=== PATIENT | female | born 1985 | race Caucasian/White ===

== ENCOUNTER 2017-10-25 23:04 | Emergency (ER) | END 2017-10-26 07:12 | disposition home or self-care (01) ==

== ENCOUNTER 2017-12-19 05:15 | Inpatient (IN) | END 2017-12-29 18:00 | disposition home or self-care (01) | DRG 641 ==

== ENCOUNTER 2018-04-06 01:01 | Inpatient (IN) | END 2018-04-06 19:05 | disposition home or self-care (01) | DRG 699 ==

== ENCOUNTER 2018-09-30 00:14 | Inpatient (IN) | payer OTHER ==
[~2018-09-30] VITALS: Ht 157.5 cm; Wt 45.6 kg
[~2018-09-30 00:14] MED LIST: BIOT5000 PO; FERR325T5 PO; MULTI PO; POTA20TA96 PO
[2018-09-30] MEDS ORDERED: KETOROLAC 15 MG INJ IV STA (01:09)
[2018-09-30] MEDS ORDERED: morphine 4 MG/ML VIAL IV STA (01:09)
[2018-09-30] MEDS ORDERED: ONDANSETRON 4 MG INJ IV STA (01:09)
--- NOTE | 2018-09-30 01:11 | ERD ---
ER Documentation Chief Complaint Chief Complaint fatigue,L flank pain,N/V x 1week; hx hypokalemia,calculi HPI This is a 33-year-old female with history of renal tubular acidosis, prior history of kidney stones, presents with generalized fatigue, left flank pain and nausea and vomiting for the last week. She has not had a fever. She has extremity symptoms currently, there are no relieving or aggravating factors. Symptoms are intermittent. ROS All systems reviewed and are negative except as per history of present illness. Medications Home Meds Active Scripts Ferrous Sulfate (Ferrous Sulfate) 325 Mg Tablet.dr, 325 MG PO BID for 30 Days Prov:AMY HERNANDEZ 12/29/17 Reported Medications Multivitamins* (Theragran*) 1 Tab Tab, 1 TAB PO DAILY, TAB 04/06/18 Biotin (Biotin) 5,000 Mcg Tab.rapdis, 5000 MCG PO 04/06/18 Potassium Chloride* (Potassium Chloride*) 20 Meq Tablet.er, 20 MEQ PO TID, TAB.SA 12/19/17 Allergies Allergies: Coded Allergies: No Known Drug Allergies (Verified Allergy, Unknown, 12/19/17) PMhx/Soc History of Surgery: No Anesthesia Reaction: No Hx Neurological Disorder: No Hx Respiratory Disorders: No Hx Cardiac Disorders: No Hx Psychiatric Problems: No Hx Miscellaneous Medical Probl: Yes (Hypokalemia ) Hx Alcohol Use: No Hx Substance Use: No Hx Tobacco Use: Yes (Quit in 2017) Smoking Status: Former smoker Physical Exam Vitals Vital Signs Date Temp Pulse Resp B/P (MAP) Pulse Ox O2 O2 Flow FiO2 Time Delivery Rate 09/30/18 80 16 95/64 (74) 100 Room Air 03:09 09/30/18 98.6 71 18 129/75 100 Room Air 00:58 (93) 09/30/18 98.6 84 18 110/73 100 00:24 (85) Physical Exam Const: Well-appearing, nontoxic Head: Atraumatic Eyes: Normal Conjunctiva ENT: Normal External Ears, Nose and Mouth. Neck: Full range of motion. No meningismus. Resp: Clear to auscultation bilaterally Cardio: Regular rate and rhythm, no murmurs Abd: Soft, non tender, non distended. Normal bowel sounds Skin: No petechiae or rashes Back: No midline or flank tenderness Ext: No cyanosis, or edema Neur: Awake and alert Psych: Normal Mood and Affect Result Diagram: 09/30/18 0148 09/30/18 0148 Results 24 hrs Laboratory Tests Test 09/30/18 01:48 09/30/18 01:55 White Blood Count 9.7 10^3/ul Red Blood Count 4.47 10^6/ul Hemoglobin 12.2 g/dl Hematocrit 38.2 % Mean Corpuscular Volume 85.5 fl Mean Corpuscular Hemoglobin 27.3 pg Mean Corpuscular Hemoglobin Concent 31.9 g/dl Red Cell Distribution Width 18.0 % Platelet Count 354 10^3/UL Mean Platelet Volume 10.9 fl Immature Granulocytes % 0.400 % Neutrophils % 74.2 % Lymphocytes % 19.8 % Monocytes % 4.4 % Eosinophils % 1.0 % Basophils % 0.2 % Nucleated Red Blood Cells % 0.0 /100WBC Immature Granulocytes # 0.040 10^3/ul Neutrophils # 7.2 10^3/ul Lymphocytes # 1.9 10^3/ul Monocytes # 0.4 10^3/ul Eosinophils # 0.1 10^3/ul Basophils # 0.0 10^3/ul Nucleated Red Blood Cells # 0.0 10^3/ul Urine Color STRAW Urine Clarity CLEAR Urine pH 7.0 Urine Specific Fenton 1.009 Urine Ketones NEGATIVE mg/dL Urine Nitrite NEGATIVE mg/dL Urine Bilirubin NEGATIVE mg/dL Urine Urobilinogen NEGATIVE mg/dL Urine Leukocyte Esterase 1+ Letty/ul Urine Microscopic RBC 2 /HPF Urine Microscopic WBC 21 /HPF Urine Squamous Epithelial Cells FEW /HPF Urine Bacteria FEW /HPF Urine Hemoglobin 1+ mg/dL Urine Glucose NEGATIVE mg/dL Urine Total Protein 1+ mg/dl Sodium Level 143 mmol/L Potassium Level 2.6 mmol/L Chloride Level 117 mmol/L Carbon Dioxide Level 13 mmol/L Anion Gap 13 Blood Urea Nitrogen 6 mg/dl Creatinine 0.97 mg/dl Est Glomerular Filtrat Rate mL/min > 60 mL/min Glucose Level 90 mg/dl Calcium Level 9.5 mg/dl Total Bilirubin 0.6 mg/dl Direct Bilirubin 0.00 mg/dl Indirect Bilirubin 0.6 mg/dl Aspartate Amino Transf (AST/SGOT) 24 IU/L Alanine Aminotransferase (ALT/SGPT) 9 IU/L Alkaline Phosphatase 163 IU/L Total Protein 9.8 g/dl Albumin 5.1 g/dl Globulin 4.70 g/dl Albumin/Globulin Ratio 1.08 Lipase 592 U/L POC Beta HCG, Qualitative NEGATIVE Current Medications Medications Dose Sig/Ubaldo Start Time Status Last (Trade) Ordered Route PRN Stop Time Admin Dose Reason Admin Morphine 4 mg ONCE STAT 09/30/18 DC 09/30/18 Sulfate IV 01:09 01:44 (morphine) 09/30/18 01:12 Ondansetron 4 mg ONCE STAT 09/30/18 DC 09/30/18 HCl (Zofran IV 01:09 01:44 Inj) 09/30/18 01:12 Ketorolac 15 mg ONCE STAT 09/30/18 DC 09/30/18 Tromethamine IV 01:09 01:44 (Toradol) 09/30/18 01:12 Potassium 80 meq ONCE ONCE 09/30/18 DC 09/30/18 Chloride PO 02:30 02:35 (Klor-Con 10) 09/30/18 02:31 Magnesium 100 ml @ ONCE ONCE 09/30/18 DC 09/30/18 Sulfate/ 100 mls/hr IVPB 02:30 02:35 Dextrose 09/30/18 03:29 Sodium 1,000 ml @ Q1H STAT 09/30/18 DC 09/30/18 Chloride 1,000 mls/hr IV 02:55 03:03 09/30/18 03:54 Ceftriaxone 50 ml @ ONCE STAT 09/30/18 DC 09/30/18 Sodium 100 mls/hr IVPB 03:54 04:04 09/30/18 04:23 Morphine 4 mg ONCE ONCE 09/30/18 DC Sulfate IV 04:01 (morphine) 09/30/18 04:02 Procedures/MDM This is a 33-year-old female presents for evaluation of generalized weakness, flank pain, in the setting of prior history of renal tubular acidosis, as well as nausea and vomiting. Her labs were remarkable for an anion gap acidosis, without evidence of DKA, I suspect the majority of her symptoms most likely related to her nausea and vomiting, in the setting of severe hypokalemia. Patient was given oral potassium, in addition to IV magnesium sulfate. Patient has no evidence of DKA. Some pyuria was noted, that she was also treated with ceftriaxone. She remained hemodynamically stable in the ED. Accepting Care Team: Current data and ongoing care discussed. Primary: Reece Consulting: None Outstanding Data: CT KUB EKG: Rate/Rhythm: Normal Sinus Rhythm QRS, ST, T-waves: No changes consistent w/ acute ischemia Impression: No evidence of ischemia or arrhythmia Departure Diagnosis: Primary Impression: Multiple complaints Additional Impressions: Hypokalemia Renal tubular acidosis Pyuria Condition: Stable JEANNIE DANIEL MD Sep 30, 2018 01:11
[2018-09-30] MEDS ORDERED: POTASSIUM CHLORIDE (SR) 10 MEQ TAB PO ONE (02:30)
[2018-09-30] MEDS ORDERED: MAGNESIUM SULFATE 1 GM/D5W 100 ML IVPB ONE (02:30)
[2018-09-30] MEDS ORDERED: SOD CHLORIDE 0.9% 1,000 ML IV STA (02:55)
[2018-09-30] MEDS ORDERED: CEFTRIAXONE 1 GM/50 ML (PMX) 50 ML IVPB STA (03:54)
[2018-09-30] MEDS ORDERED: morphine 4 MG/ML VIAL IV ONE (04:01)
[2018-09-30 08:20] VITALS: BP 84/59; PULSE 66; RESP 16
[2018-09-30 09:06] VITALS: Ht 157.5 cm; Wt 45.6 kg
[2018-09-30] MEDS: traMADol 50 MG TAB PO PRN ×3 (10:13→23:54)
[2018-09-30] MEDS: CITRIC ACID/NA CITRATE 30 ML CUP PO SCH ×2 (11:00→20:35)
[2018-09-30] MEDS: POTASSIUM CHLORIDE 30 MEQ in SOD CHLORIDE 0.45% 1,000 ML IV SCH (11:29)
[2018-09-30] MEDS: NA BICARBONATE 650 MG TAB PO SCH ×2 (12:20→20:35)
[2018-09-30] MEDS: POTASSIUM CHLORIDE (SR) 20 MEQ TAB PO SCH ×2 (12:21→20:35)
--- NOTE | 2018-09-30 16:45 | QN ---
Documentation Comment [id number] AYAD GIBBONS MD Sep 30, 2018 16:45
--- NOTE | 2018-09-30 17:38 | HP ---
DATE OF ADMISSION: 09/30/2018 HISTORY OF PRESENT ILLNESS: The patient is a 33-year-old female with history of nephrolithiasis, hyp okalemia, renal tubular acidosis, presented with pain and weakness, flank pain and body ache. WBC 9. 7, hematocrit 38.2, platelet count of 354, sodium 143, potassium 2.6, chloride 117, CO2 of 13, ALT 91 , alkaline phosphatase 163, albumin 5.1, globulin 4.70. The patient is admitted for further manageme nt. The patient has chest x-ray done, which shows no evidence for active cardiopulmonary disease. C T abdomen and pelvis done shows numerous bilateral nonobstructing renal calculi again seen and with l inear cluster of calculi in the distal right ureter without hydronephrosis and/or hydroureter. There are mild focal anterior bladder wall thickening now seen approximately 6 cm focal inflammatory proce ss may be considered as well as neoplasm. The patient denies any hematuria, dysuria and is admitted for further management. PAST MEDICAL HISTORY: As mentioned above, hypokalemia, kidney stone, renal tubular acidosis, noncomp liance. ALLERGY HISTORY: NEGATIVE. FAMILY HISTORY: Diabetes, hypertension, CAD. SOCIAL HISTORY: Smokes marijuana. MEDICATIONS AT HOME: 1. Biotin. 2. Ferrous sulfate. 3. Multiple vitamin. 4. Potassium chloride. REVIEW OF SYSTEMS: HEENT: Unremarkable. RESPIRATORY: Unremarkable. CARDIOVASCULAR: Unremarkable. ABDOMEN: No abdominal pain. EXTREMITIES: Unremarkable. CENTRAL NERVOUS SYSTEMS: Unremarkable. MUSCULOSKELETAL: Bodyaches. PHYSICAL EXAMINATION: GENERAL: The patient is awake and alert. VITAL SIGNS: With pulse 73, blood pressure 90/64. HEENT: Head is atraumatic, normocephalic. Pupils are equal, reactive. NECK: Supple. No JVD. LUNGS: Clear. CARDIOVASCULAR: S1, S2 is normal. ABDOMEN: Soft and nontender. Bowel sounds are present. No palpable mass or hepatosplenomegaly. No guarding, rebound tenderness. EXTREMITIES: No cyanosis, clubbing, edema. CENTRAL NERVOUS SYSTEM: The patient is awake, alert. No focal deficit. LABORATORY DATA: Lipase 592. Sodium 143, potassium 2.6. Urine specific gravity urine of , pH 7, leukocyte esterase 1+ and bacteria few. IMPRESSION: 1. Nephrolithiasis with calcification in the distal ureter. 2. The patient has metabolic acidosis. 3. Hypokalemia. 4. Dehydration. 5. Hyperchloremic metabolic acidosis. 6. Elevated lipase and possible pancreatitis. PLAN: To give this patient Bicitra, sodium bicarbonate, PPI. Continue home medication. Continue po tassium supplementation p.o. and IV. Continue Protonix. Orders were done. Dictated By: AYAD GIBBONS MD BS/NTS Conf#: [id number] DID#: [id number] CC: FARRAH LOZANO MD;*EndCC*
[2018-09-30 20:00] VITALS: BP 99/60; PULSE 81; RESP 17
[2018-09-30] MEDS ORDERED: traMADol 50 MG TAB PO STA (20:28)
[2018-10-01 02:00] VITALS: BP 90/58; PULSE 67; RESP 18
[2018-10-01] MEDS: PANTOPRAZOLE (EC) 40 MG TAB PO SCH (05:54)
[2018-10-01] MEDS: traMADol 50 MG TAB PO PRN ×3 (05:55→19:50)
[2018-10-01] MEDS: POTASSIUM CHLORIDE 30 MEQ in SOD CHLORIDE 0.45% 1,000 ML IV SCH (05:59)
[2018-10-01] MEDS ORDERED: POTASSIUM CHLORIDE (SR) 20 MEQ TAB PO STA (06:30)
[2018-10-01 08:04] VITALS: BP 120/67; PULSE 73; RESP 16
[2018-10-01] MEDS: CITRIC ACID/NA CITRATE 30 ML CUP PO SCH ×2 (09:39→19:55)
[2018-10-01] MEDS: POTASSIUM CHLORIDE (SR) 20 MEQ TAB PO SCH ×3 (09:40→19:54)
[2018-10-01] MEDS: NA BICARBONATE 650 MG TAB PO SCH ×3 (09:40→19:54)
[2018-10-01] MEDS: morphine 2 MG INJ IV PRN ×3 (10:11→22:24)
--- NOTE | 2018-10-01 12:52 | PN ---
Date/Time of Note Date/Time of Note DATE: 10/01/18 TIME: 12:49 Assessment/Plan VTE Prophylaxis Risk score (from [facility])>0 risk: 1 SCD applied (from [facility]): No SCD contraindicated: low risk/ambulating Pharmacological prophylaxis: NA/contraindicated Pharm contraindication: low risk/ambulating Lines/Catheters IV [facility] Type (from [facility] Saline Lock Urinary Cath still in place: No Assessment/Plan Hospital Course 33 y/o with 1. Left flank pain likely due to . Nephrolithiasis with calcification in the distal ureter. vs Pancreatitis 2. The patient has metabolic acidosis. 3. Hypokalemia. 4. Dehydration. 5. Hyperchloremic metabolic acidosis. 6. Elevated lipase and possible pancreatitis. Plan - IV fluids 1/2 ns with KCL - Abdominal Xray for renal calculus - Abd U/S to check for gall stone - start rocephin - Recheck K S/P 40 Po and iv continuing - ucx - dr Arenas consult - GI/DVT prophylaxsis Result Diagram: 10/01/18 0533 10/01/18 0933 Results 24hrs Laboratory Tests Test 09/30/18 22:05 10/01/18 05:33 10/01/18 09:33 Potassium Level 3.1 L 2.9 *L 3.2 L White Blood Count 7.1 # Red Blood Count 3.55 #L Hemoglobin 9.8 L Hematocrit 30.8 L Mean Corpuscular Volume 86.8 Mean Corpuscular Hemoglobin 27.6 L Mean Corpuscular Hemoglobin Concent 31.8 L Red Cell Distribution Width 18.3 H Platelet Count 262 # Mean Platelet Volume 10.8 H Immature Granulocytes % 0.400 Neutrophils % 70.8 Lymphocytes % 21.8 Monocytes % 4.9 Eosinophils % 1.7 Basophils % 0.4 Nucleated Red Blood Cells % 0.0 Immature Granulocytes # 0.030 Neutrophils # 5.0 Lymphocytes # 1.6 Monocytes # 0.4 Eosinophils # 0.1 Basophils # 0.0 Nucleated Red Blood Cells # 0.0 Sodium Level 142 Chloride Level 118 H Carbon Dioxide Level 14 L Anion Gap 10 Blood Urea Nitrogen 4 L Creatinine 0.92 Est Glomerular Filtrat Rate mL/min > 60 Glucose Level 85 Calcium Level 8.1 L Total Bilirubin 0.4 Direct Bilirubin 0.00 Indirect Bilirubin 0.4 Aspartate Amino Transf (AST/SGOT) 16 Alanine Aminotransferase (ALT/SGPT) 15 Alkaline Phosphatase 95 Total Protein 6.8 # Albumin 3.5 # Globulin 3.30 H Albumin/Globulin Ratio 1.06 Lipase 510 H Subjective 24 Hr Interval Summary Free Text/Dictation Pain in left flank Exam/Review of Systems Exam Vitals Vital Signs Date Temp Pulse Resp B/P (MAP) Pulse Ox O2 O2 Flow FiO2 Time Delivery Rate 10/01/18 98.4 73 16 120/67 100 08:04 (84) 09/30/18 Room Air 04:34 Intake and Output 09/30/18 09/30/18 10/01/18 1515:00 23:00 07:00 IntakeIntake Total 1075 ml 1690 ml BalanceBalance 1075 ml 1690 ml Exam HEENT: Head is atraumatic, normocephalic. Pupils are equal, reactive. NECK: Supple. No JVD. LUNGS: Clear. CARDIOVASCULAR: S1, S2 is normal. ABDOMEN:TTP Left flank EXTREMITIES: No cyanosis, clubbing, edema. CENTRAL NERVOUS SYSTEM: The patient is awake, alert. No focal deficit. Results Results 24hrs Laboratory Tests Test 09/30/18 22:05 10/01/18 05:33 10/01/18 09:33 Potassium Level 3.1 L 2.9 *L 3.2 L White Blood Count 7.1 # Red Blood Count 3.55 #L Hemoglobin 9.8 L Hematocrit 30.8 L Mean Corpuscular Volume 86.8 Mean Corpuscular Hemoglobin 27.6 L Mean Corpuscular Hemoglobin Concent 31.8 L Red Cell Distribution Width 18.3 H Platelet Count 262 # Mean Platelet Volume 10.8 H Immature Granulocytes % 0.400 Neutrophils % 70.8 Lymphocytes % 21.8 Monocytes % 4.9 Eosinophils % 1.7 Basophils % 0.4 Nucleated Red Blood Cells % 0.0 Immature Granulocytes # 0.030 Neutrophils # 5.0 Lymphocytes # 1.6 Monocytes # 0.4 Eosinophils # 0.1 Basophils # 0.0 Nucleated Red Blood Cells # 0.0 Sodium Level 142 Chloride Level 118 H Carbon Dioxide Level 14 L Anion Gap 10 Blood Urea Nitrogen 4 L Creatinine 0.92 Est Glomerular Filtrat Rate mL/min > 60 Glucose Level 85 Calcium Level 8.1 L Total Bilirubin 0.4 Direct Bilirubin 0.00 Indirect Bilirubin 0.4 Aspartate Amino Transf (AST/SGOT) 16 Alanine Aminotransferase (ALT/SGPT) 15 Alkaline Phosphatase 95 Total Protein 6.8 # Albumin 3.5 # Globulin 3.30 H Albumin/Globulin Ratio 1.06 Lipase 510 H Medications Medication Current Medications Potassium Chloride 30 meq/ Sodium Chloride 1,015 ml @ 50 mls/hr [id number] IV Last administered on 10/01/18 05:59; Admin Dose 50 MLS/HR; Start 09/30/18 at 11:00 Potassium Chloride (Klor-Con 20) 20 meq TID PO Last administered on 10/01/18 09:40; Admin Dose 20 MEQ; Start 09/30/18 at 13:00 Citric Acid/ Sodium Citrate (Bicitra) 30 ml BID PO Last administered on 10/01/18 09:39; Admin Dose 30 ML; Start 09/30/18 at 10:30 Sodium Bicarbonate (Sodium Bicarbonate Tab) 650 mg TID PO Last administered on 10/01/18 09:40; Admin Dose 650 MG; Start 09/30/18 at 13:00 Pantoprazole (Protonix Tab) 40 mg DAILY@06 PO Last administered on 10/01/18 05:54; Admin Dose 40 MG; Start 10/01/18 at 06:00 Tramadol HCl (Ultram) 50 mg Q6H PRN PO MODERATE PAIN LEVEL 4-6 Last administered on 10/01/18 05:55; Admin Dose 50 MG; Start 09/30/18 at 10:00 Morphine Sulfate (morphine) 2 mg Q4H PRN IV SEVERE PAIN LEVEL 7-10 Last administered on 10/01/18at 10:11; Admin Dose 2 MG; Start 10/01/18 at 10:00 Ceftriaxone Sodium 50 ml @ 100 mls/hr Q24H IVPB ; Start 10/01/18 at 13:00; Status LAVERNE STROUD MD Oct 01, 2018 12:52
[2018-10-01] MEDS: CEFTRIAXONE 1 GM/50 ML (PMX) 50 ML IVPB SCH (13:13)
[2018-10-01 14:31] VITALS: BP 96/55; PULSE 67; RESP 18
--- NOTE | 2018-10-01 17:37 | CONS ---
Assessment/Plan Assessment/Plan Hospital Course (Demo Recall) Summary Assessment and Plan: Assessment: Elevated lipase Left lower back pain Multiple nonobstructing renal calculi Cluster of calculi in the distal right ureter without hydronephrosis or hydrou reter. Bladder wall thickening Hypokalemia Chronic anemia Plan: Patient currently on a regular diet no complaints of abdominal pain although she does complain of left lower back pain we will continue diet for now recheck lipase and amylase in a.m. if elevated will change diet to n.p.o. We will additionally check IgG and obtain abdominal ultrasound to assess common bile duct. Further recommendations based on clinical course Patient seen in collaboration with Dr. Haider CC: KAYLIN HAIDER MD ; Consultation Date/Type/Reason Admit Date/Time Sep 30, 2018 at 02:57 Date of Consultation: Oct 01, 2018 Type of Consult GI Reason for Consultation Left flank pain Kidney stone versus pancreatitis Date/Time of Note DATE: 10/01/18 TIME: 17:26 Hx of Present Illness This a 33-year-old female with past medical history of chronic anemia, Sjogren's disease, hypokalemia, metabolic acidosis who presented to the hospital with complaints of progressive abdominal and left flank pain times 1 week. Workup was completed here including a CT abdomen pelvis without IV contrast, showing numerous bilateral nonobstructing renal calculi seen now with a linear cluster of calculi in the distal right ureter without hydronephrosis or hydroureter. As well as some mild focal anterior bladder wall thickening noted in CT is a unremarkable liver as well as unremarkable pancreas. Labs were obtained and lipase was noted to be elevated at 510, LFTs are within normal limits patient on presentation had a hypokalemia with a potassium of 2.6 and today is noted no rmocytic anemia, UA suspicious for UTI patient has been started on antibiotics she has been consulted for further workup regarding possible pancreatitis currently patient denies left upper abdominal pain or epigastric pain she does complain of left lower back pain. Patient denies alcohol, or previous episodes of pancreatitis. Patient has a metal piercing in her face that is not possible to remove without surgical intervention. Therefore we will not be able to obtain MRCP. CT abdomen pelvis without contrast notes the gallbladder to be unremarkable. We will obtain a abdominal ultrasound to assess common bile duct if possible we will additionally check IgG for autoimmune pancreatitis and re check labs in the morning. Patient is currently on a regular diet tolerating well she denies nausea/vomiting again no complaint of abdominal pain rather only left lower back pain she denies overt signs of GI bleed including melena, hematochezia or hematemesis. Review of Systems: A 12 system, review was conducted and is negative except as noted in the HPI or here. Past Medical History Home Meds Active Scripts Ferrous Sulfate (Ferrous Sulfate) 325 Mg Tablet.dr, 325 MG PO BID for 30 Days Prov:AMY HERNANDEZ 12/29/17 Reported Medications Multivitamins* (Theragran*) 1 Tab Tab, 1 TAB PO DAILY, TAB 04/06/18 Biotin (Biotin) 5,000 Mcg Tab.rapdis, 5000 MCG PO 04/06/18 Potassium Chloride* (Potassium Chloride*) 20 Meq Tablet.er, 20 MEQ PO TID, TAB.SA 12/19/17 Medications Current Medications Potassium Chloride 30 meq/ Sodium Chloride 1,015 ml @ 70 mls/hr [id number] IV Last administered on 10/01/18 05:59; Admin Dose 50 MLS/HR; Start 09/30/18 at 11:00 Potassium Chloride (Klor-Con 20) 20 meq TID PO Last administered on 10/01/18 13:12; Admin Dose 20 MEQ; Start 09/30/18 at 13:00 Citric Acid/ Sodium Citrate (Bicitra) 30 ml BID PO Last administered on 9at 09:39; Admin Dose 30 ML; Start 09/30/18 at 10:30 Sodium Bicarbonate (Sodium Bicarbonate Tab) 650 mg TID PO Last administered on 10/01/18 13:13; Admin Dose 650 MG; Start 09/30/18 at 13:00 Pantoprazole (Protonix Tab) 40 mg DAILY@06 PO Last administered on 10/01/18 05:54; Admin Dose 40 MG; Start 10/01/18 at 06:00 Tramadol HCl (Ultram) 50 mg Q6H PRN PO MODERATE PAIN LEVEL 4-6 Last administered on 10/01/18 13:13; Admin Dose 50 MG; Start 09/30/18 at 10:00 Morphine Sulfate (morphine) 2 mg Q4H PRN IV SEVERE PAIN LEVEL 7-10 Last administered on 10/01/18 10:11; Admin Dose 2 MG; Start 10/01/18 at 10:00 Ceftriaxone Sodium 50 ml @ 100 mls/hr Q24H IVPB Last administered on 10/01/18at 13:13; Admin Dose 100 MLS/HR; Start 10/01/18 at 13:00 Allergies: Coded Allergies: No Known Drug Allergies (Verified Allergy, Unknown, 12/19/17) Past Surgical History Past Surgical Hx: no surgical history Social History Smoking Status: Never smoker Exam/Review of Systems Exam Vitals Vital Signs Date Temp Pulse Resp B/P (MAP) Pulse Ox O2 O2 Flow FiO2 Time Delivery Rate 10/01/18 98.3 67 18 96/55 (69) 99 14:31 09/30/18 Room Air 04:34 Intake and Output 09/30/18 09/30/18 10/01/18 1414:59 22:59 06:59 IntakeIntake Total 1075 ml 1690 ml BalanceBalance 1075 ml 1690 ml Exam PHYSICAL EXAMINATION: GENERAL: Well developed, well nourished, alert & oriented x 3, in no acute distress SKIN: No lesions, no stigmata chronic liver disease, no evidence of bleeding diathesis HEAD: Normocephalic, atraumatic, no tenderness. EYES: Pupils equal reactive to light and accommodation, full extraocular movements, sclera clear, non-icteric, no discharge. EARS/NOSE AND THROAT: Ears normal, nose normal, oropharynx normal, oral membranes well hydrated without lesions. NECK: Supple, no masses, thyroid normal, JVP within normal limits, carotids normal without bruits. CHEST: Inspection within normal limits. CARDIOVASCULAR: Heart: Regular rate and rhythm, no murmurs, gallops or rubs. Peripheral pulses present within normal limits, no cyanosis, clubbing or edemas. No pulsatile abdominal mass RESPIRATORY: Lungs clear to auscultation and percussion, no wheezing, no rubs GASTROINTESTINAL AND LIVER: Abdomen: Soft, LL back tenderness, non-distended, no hernias, no masses, no organomegaly, no ascites, no guarding, no rebound tenderness, normoactive bowel sounds. Rectal: Deferred. [no perianal disease, no masses, stool normal, occult blood negative.] EXTREMITIES: No cyanosis, clubbing or edema. Results Result Diagram: 10/01/18 0533 10/01/18 0933 Results 24hrs Laboratory Tests Test 09/30/18 22:05 10/01/18 05:33 10/01/18 09:33 Potassium Level 3.1 L 2.9 *L 3.2 L White Blood Count 7.1 # Red Blood Count 3.55 #L Hemoglobin 9.8 L Hematocrit 30.8 L Mean Corpuscular Volume 86.8 Mean Corpuscular Hemoglobin 27.6 L Mean Corpuscular Hemoglobin Concent 31.8 L Red Cell Distribution Width 18.3 H Platelet Count 262 # Mean Platelet Volume 10.8 H Immature Granulocytes % 0.400 Neutrophils % 70.8 Lymphocytes % 21.8 Monocytes % 4.9 Eosinophils % 1.7 Basophils % 0.4 Nucleated Red Blood Cells % 0.0 Immature Granulocytes # 0.030 Neutrophils # 5.0 Lymphocytes # 1.6 Monocytes # 0.4 Eosinophils # 0.1 Basophils # 0.0 Nucleated Red Blood Cells # 0.0 Sodium Level 142 Chloride Level 118 H Carbon Dioxide Level 14 L Anion Gap 10 Blood Urea Nitrogen 4 L Creatinine 0.92 Est Glomerular Filtrat Rate mL/min > 60 Glucose Level 85 Calcium Level 8.1 L Total Bilirubin 0.4 Direct Bilirubin 0.00 Indirect Bilirubin 0.4 Aspartate Amino Transf (AST/SGOT) 16 Alanine Aminotransferase (ALT/SGPT) 15 Alkaline Phosphatase 95 Total Protein 6.8 # Albumin 3.5 # Globulin 3.30 H Albumin/Globulin Ratio 1.06 Lipase 510 H Medications Medication Current Medications Potassium Chloride 30 meq/ Sodium Chloride 1,015 ml @ 70 mls/hr [id number] IV Last administered on 10/01/18 05:59; Admin Dose 50 MLS/HR; Start 09/30/18 at 11:00 Potassium Chloride (Klor-Con 20) 20 meq TID PO Last administered on 10/01/18at 13:12; Admin Dose 20 MEQ; Start 09/30/18 at 13:00 Citric Acid/ Sodium Citrate (Bicitra) 30 ml BID PO Last administered on 10/01/18at 09:39; Admin Dose 30 ML; Start 09/30/18 at 10:30 Sodium Bicarbonate (Sodium Bicarbonate Tab) 650 mg TID PO Last administered on 10/01/18at 13:13; Admin Dose 650 MG; Start 09/30/18 at 13:00 Pantoprazole (Protonix Tab) 40 mg DAILY@06 PO Last administered on 10/01/18 05:54; Admin Dose 40 MG; Start 10/01/18 at 06:00 Tramadol HCl (Ultram) 50 mg Q6H PRN PO MODERATE PAIN LEVEL 4-6 Last administered on 10/01/18 13:13; Admin Dose 50 MG; Start 09/30/18 at 10:00 Morphine Sulfate (morphine) 2 mg Q4H PRN IV SEVERE PAIN LEVEL 7-10 Last a dministered on 10/01/18 10:11; Admin Dose 2 MG; Start 10/01/18 at 10:00 Ceftriaxone Sodium 50 ml @ 100 mls/hr Q24H IVPB Last administered on 10/01/18 13:13; Admin Dose 100 MLS/HR; Start 10/01/18 at 13:00 JACKLYN BILLINGSLEY Oct 01, 2018 17:37
--- NOTE | 2018-10-01 19:10 | CONS ---
Assessment/Plan Assessment/Plan Hospital Course (Demo Recall) 33-year-old female with known history of renal tubular acidosis, nephrolithiasis and hypokalemia, presented to the emergency room complaining of left flank pain with nausea and feeling fatigued. She underwent a CT scan of the abdomen and pelvis and that showed: 1. Numerous bilateral nonobstructing renal calculi are again seen now with a linear cluster of calculi in the distal right ureter without hydronephrosis or hydroureter. 2. Mild focal anterior bladder wall thickening is now seen measuring approximately 0.6 cm. Focal inflammatory process may be considered as well as n eoplasm. Consider follow-up bladder ultrasound or CT to assess stability. Consider cystoscopy or further urologic evaluation as warranted. The patient complains of the pain in the left flank area however the stones are in the distal right ureter. Impression: Distal right ureteral stones and bilateral renal stones. Renal tubular acidosis. Recommend: Pain medications, strain the urine, she already had a KUB that showed the stones as well. She should be able to pass the stones on her own and if she does not and she has pain then we will intervene. But her pain is on the left side he had the stones are in the distal right ureter. The stones in her kidneys are not obstructing and therefore are not causing any pain. Consultation Date/Type/Reason Admit Date/Time Sep 30, 2018 at 02:57 Date of Consultation: Oct 01, 2018 Type of Consult Urology Reason for Consultation Bilateral kidney stones and multiple distal right ureteral stones Requesting Provider: LAVERNE COBB MD Date/Time of Note DATE: 10/01/18 TIME: 19:01 Hx of Present Illness 33-year-old female with known history of renal tubular acidosis, nephrolithiasis and hypokalemia, presented to the emergency room complaining of left flank pain with nausea and feeling fatigued. She underwent a CT scan of the abdomen and pelvis and that showed: 1. Numerous bilateral nonobstructing renal calculi are again seen now with a linear cluster of calculi in the distal right ureter without hydronephrosis or hydroureter. 2. Mild focal anterior bladder wall thickening is now seen measuring approximately 0.6 cm. Focal inflammatory process may be considered as well as neoplasm. Consider follow-up bladder ultrasound or CT to assess stability. Consider cystoscopy or further urologic evaluation as warranted. The patient complains of the pain in the left flank area however the stones are in the distal right ureter. Constitutional: no complaints, other (Fatigue) Eyes: no complaints ENT: no complaints Respiratory: no complaints Cardiovascular: no complaints Gastrointestinal: nausea (On admission), vomiting (On admission) Genitourinary: flank pain (Left side); No hematuria Musculoskeletal: no complaints Skin: no complaints Neurologic: no complaints Endocrine: no complaints Lymphatic: no complaints Psychological: no complaints Immunologic: no complaints Past Medical History Medical History: renal disease (Renal tubular acidosis, kidney stones) Home Meds Active Scripts Ferrous Sulfate (Ferrous Sulfate) 325 Mg Tablet.dr, 325 MG PO BID for 30 Days Prov:AMY HERNANDEZ 12/29/17 Reported Medications Multivitamins* (Theragran*) 1 Tab Tab, 1 TAB PO DAILY, TAB 04/06/18 Biotin (Biotin) 5,000 Mcg Tab.rapdis, 5000 MCG PO 04/06/18 Potassium Chloride* (Potassium Chloride*) 20 Meq Tablet.er, 20 MEQ PO TID, TAB.SA 12/19/17 Medications Current Medications Potassium Chloride 30 meq/ Sodium Chloride 1,015 ml @ 70 mls/hr [id number] IV Last administered on 10/01/18 05:59; Admin Dose 50 MLS/HR; Start 09/30/18 at 11:00 Potassium Chloride (Klor-Con 20) 20 meq TID PO Last administered on 10/01/18 13:12; Admin Dose 20 MEQ; Start 09/30/18 at 13:00 Citric Acid/ Sodium Citrate (Bicitra) 30 ml BID PO Last administered on 10/01/18 09:39; Admin Dose 30 ML; Start 09/30/18 at 10:30 Sodium Bicarbonate (Sodium Bicarbonate Tab) 650 mg TID PO Last administered on 10/01/18 13:13; Admin Dose 650 MG; Start 09/30/18 at 13:00 Pantoprazole (Protonix Tab) 40 mg DAILY@06 PO Last administered on 10/01/18 05:54; Admin Dose 40 MG; Start 10/01/18 at 06:00 Tramadol HCl (Ultram) 50 mg Q6H PRN PO MODERATE PAIN LEVEL 4-6 Last administered on 10/01/18 13:13; Admin Dose 50 MG; Start 09/30/18 at 10:00 Morphine Sulfate (morphine) 2 mg Q4H PRN IV SEVERE PAIN LEVEL 7-10 Last administered on 10/01/18at 17:34; Admin Dose 2 MG; Start 10/01/18 at 10:00 Ceftriaxone Sodium 50 ml @ 100 mls/hr Q24H IVPB Last administered on 10/01/18at 13:13; Admin Dose 100 MLS/HR; Start 10/01/18 at 13:00 Allergies: Coded Allergies: No Known Drug Allergies (Verified Allergy, Unknown, 12/19/17) Past Surgical History Past Surgical Hx: no surgical history Social History Alcohol Use: rarely Smoking Status: Never smoker Drug Use: marijuana Exam/Review of Systems Exam Vitals Vital Signs Date Temp Pulse Resp B/P (MAP) Pulse Ox O2 O2 Flow FiO2 Time Delivery Rate 10/01/18 98.3 67 18 96/55 (69) 99 14:31 09/30/18 Room Air 04:34 Intake and Output 09/30/18 09/30/18 10/01/18 1515:00 23:00 07:00 IntakeIntake Total 1075 ml 1690 ml BalanceBalance 1075 ml 1690 ml Constitutional: alert, oriented Psych: no complaints Head: normocephalic Eyes: nl conjunctiva ENMT: nl external ears & nose Neck: supple, non-tender Respiratory: normal air movement; No wheezing Cardiovascular: regular rate and rhythm; No jugular venous distention (JVD) Gastrointestinal: soft, tender Genitourinary - Female: CVA tenderness (Left flank) Musculoskeletal: nl extremities to inspection Neurological: nl mental status Skin: nl turgor Lymph: nl lymph nodes Results Result Diagram: 10/01/18 0533 10/01/18 1654 Results 24hrs Laboratory Tests Test 09/30/18 22:05 10/01/18 05:33 10/01/18 09:33 10/01/18 16:54 Potassium Level 3.1 L 2.9 *L 3.2 L 3.3 L White Blood Count 7.1 # Red Blood Count 3.55 #L Hemoglobin 9.8 L Hematocrit 30.8 L Mean Corpuscular Volume 86.8 Mean Corpuscular 27.6 L Hemoglobin Mean Corpuscular 31.8 L Hemoglobin Concent Red Cell Distribution 18.3 H Width Platelet Count 262 # Mean Platelet Volume 10.8 H Immature Granulocytes % 0.400 Neutrophils % 70.8 Lymphocytes % 21.8 Monocytes % 4.9 Eosinophils % 1.7 Basophils % 0.4 Nucleated Red Blood 0.0 Cells % Immature Granulocytes # 0.030 Neutrophils # 5.0 Lymphocytes # 1.6 Monocytes # 0.4 Eosinophils # 0.1 Basophils # 0.0 Nucleated Red Blood 0.0 Cells # Sodium Level 142 Chloride Level 118 H Carbon Dioxide Level 14 L Anion Gap 10 Blood Urea Nitrogen 4 L Creatinine 0.92 Est Glomerular Filtrat > 60 Rate mL/min Glucose Level 85 Calcium Level 8.1 L Total Bilirubin 0.4 Direct Bilirubin 0.00 Indirect Bilirubin 0.4 Aspartate Amino 16 Transf (AST/SGOT) Alanine 15 Aminotransferase (ALT/S GPT) Alkaline Phosphatase 95 Total Protein 6.8 # Albumin 3.5 # Globulin 3.30 H Albumin/Globulin Ratio 1.06 Lipase [address] scan of the abdomen and pelvis: 1. Numerous bilateral nonobstructing renal calculi are again seen now with a linear cluster of calculi in the distal right ureter without hydronephrosis or hydroureter. 2. Mild focal anterior bladder wall thickening is now seen measuring approximately 0.6 cm. Focal inflammatory process may be considered as well as neoplasm. Consider follow-up bladder ultrasound or CT to assess stability. Consider cystoscopy or further urologic evaluation as warranted. Medications Medication Current Medications Potassium Chloride 30 meq/ Sodium Chloride 1,015 ml @ 70 mls/hr [id number] IV Last administered on 10/01/18 05:59; Admin Dose 50 MLS/HR; Start 09/30/18 at 11:00 Potassium Chloride (Klor-Con 20) 20 meq TID PO Last administered on 10/01/18 13:12; Admin Dose 20 MEQ; Start 09/30/18 at 13:00 Citric Acid/ Sodium Citrate (Bicitra) 30 ml BID PO Last administered on 10/01/18 09:39; Admin Dose 30 ML; Start 09/30/18 at 10:30 Sodium Bicarbonate (Sodium Bicarbonate Tab) 650 mg TID PO Last administered on 10/01/18 13:13; Admin Dose 650 MG; Start 09/30/18 at 13:00 Pantoprazole (Protonix Tab) 40 mg DAILY@06 PO Last administered on 10/01/18 05:54; Admin Dose 40 MG; Start 10/01/18 at 06:00 Tramadol HCl (Ultram) 50 mg Q6H PRN PO MODERATE PAIN LEVEL 4-6 Last administered on 10/01/18at 13:13; Admin Dose 50 MG; Start 09/30/18 at 10:00 Morphine Sulfate (morphine) 2 mg Q4H PRN IV SEVERE PAIN LEVEL 7-10 Last administered on 10/01/18at 17:34; Admin Dose 2 MG; Start 10/01/18 at 10:00 Ceftriaxone Sodium 50 ml @ 100 mls/hr Q24H IVPB Last administered on 10/01/18at 13:13; Admin Dose 100 MLS/HR; Start 10/01/18 at 13:00 CUBA WU MD Oct 01, 2018 19:10
[2018-10-01] MEDS ORDERED: TAMSULOSIN (SR) 0.4 MG CAP PO ONE (19:52)
[2018-10-01] MEDS: TAMSULOSIN (SR) 0.4 MG CAP PO SCH (19:54)
[2018-10-01 20:07] VITALS: BP 123/74; PULSE 68; RESP 20
[2018-10-01] MEDS: ZOLPIDEM 5 MG TAB PO PRN (23:30)
[2018-10-02] MEDS: POTASSIUM CHLORIDE 30 MEQ in SOD CHLORIDE 0.45% 1,000 ML IV SCH ×4 (00:34→23:09)
[2018-10-02] MEDS: morphine 2 MG INJ IV PRN ×2 (02:57→08:06)
[2018-10-02 03:33] VITALS: BP 104/55; PULSE 68; RESP 20
[2018-10-02] MEDS ORDERED: morphine 2 MG INJ IV STA (03:43)
[2018-10-02] MEDS: PANTOPRAZOLE (EC) 40 MG TAB PO SCH (05:37)
[2018-10-02] MEDS: traMADol 50 MG TAB PO PRN (05:38)
[2018-10-02 08:00] VITALS: BP 105/57; PULSE 72; RESP 16
[2018-10-02] MEDS ORDERED: METOCLOPRAMIDE 10 MG INJ IV PRN (08:00)
--- NOTE | 2018-10-02 08:43 | CONS ---
Consult Date/Type/Reason Admit Date/Time Sep 30, 2018 at 02:57 Initial Consult Date 10/01/18 Type of Consultation: Urology Reason for Consultation Bilateral kidney stones and distal right ureteral stones Requesting Provider: LAVERNE COBB MD Date/Time of Note DATE: 10/02/18 TIME: 08:38 Subjective Patient states that she has pain in the left flank area. No pain in the right lower quadrant or right flank Objective Vitals Vital Signs Date Temp Pulse Resp B/P (MAP) Pulse Ox O2 O2 Flow FiO2 Time Delivery Rate 10/02/18 97.7 72 16 105/57 100 08:00 (73) 09/30/18 Room Air 04:34 Intake and Output 10/01/18 10/01/18 10/02/18 1515:00 23:00 07:00 IntakeIntake Total 50 ml 2100 ml 650 ml BalanceBalance 50 ml 2100 ml 650 ml Exam Left flank tenderness, abdomen is soft Results/Medications Result Diagram: 10/02/18 0528 10/02/18 0528 Results 24 hrs Laboratory Tests Test 10/01/18 09:33 10/01/18 16:54 10/02/18 05:28 Potassium Level 3.2 L 3.3 L 3.0 L White Blood Count 5.3 # Red Blood Count 3.95 L Hemoglobin 10.8 L Hematocrit 35.2 L Mean Corpuscular Volume 89.1 Mean Corpuscular Hemoglobin 27.3 L Mean Corpuscular Hemoglobin Concent 30.7 L Red Cell Distribution Width 18.9 H Platelet Count 298 Mean Platelet Volume 11.2 H Immature Granulocytes % 0.200 Neutrophils % 56.0 Lymphocytes % 34.9 Monocytes % 6.0 Eosinophils % 2.5 Basophils % 0.4 Nucleated Red Blood Cells % 0.0 Immature Granulocytes # 0.010 Neutrophils # 3.0 Lymphocytes # 1.9 Monocytes # 0.3 Eosinophils # 0.1 Basophils # 0.0 Nucleated Red Blood Cells # 0.0 Sodium Level 144 Chloride Level 120 H Carbon Dioxide Level 14 L Anion Gap 10 Blood Urea Nitrogen 3 L Creatinine 0.80 Est Glomerular Filtrat Rate mL/min > 60 Glucose Level 94 Calcium Level 8.4 Total Bilirubin 0.4 Direct Bilirubin 0.00 Indirect Bilirubin 0.4 Aspartate Amino Transf (AST/SGOT) 21 Alanine Aminotransferase (ALT/SGPT) 10 L Alkaline Phosphatase 109 Total Protein 7.3 Albumin 3.8 Globulin 3.50 H Albumin/Globulin Ratio 1.08 Amylase Level 151 H Lipase 606 H Home Meds Active Scripts Ferrous Sulfate (Ferrous Sulfate) 325 Mg Tablet.dr, 325 MG PO BID for 30 Days Prov:AMY HERNANDEZ 12/29/17 Reported Medications Multivitamins* (Theragran*) 1 Tab Tab, 1 TAB PO DAILY, TAB 04/06/18 Biotin (Biotin) 5,000 Mcg Tab.rapdis, 5000 MCG PO 04/06/18 Potassium Chloride* (Potassium Chloride*) 20 Meq Tablet.er, 20 MEQ PO TID, TAB.SA 12/19/17 Medications Current Medications Potassium Chloride 30 meq/ Sodium Chloride 1,015 ml @ 70 mls/hr [id number] IV L ast administered on 10/02/18 00:34; Admin Dose 70 MLS/HR; Start 09/30/18 at 11:00 Potassium Chloride (Klor-Con 20) 20 meq TID PO Last administered on 10/01/18 19:54; Admin Dose 20 MEQ; Start 09/30/18 at 13:00 Citric Acid/ Sodium Citrate (Bicitra) 30 ml BID PO Last administered on 10/01/18 19:55; Admin Dose 30 ML; Start 09/30/18 at 10:30 Sodium Bicarbonate (Sodium Bicarbonate Tab) 650 mg TID PO Last administered on 10/01/18 19:54; Admin Dose 650 MG; Start 09/30/18 at 13:00 Pantoprazole (Protonix Tab) 40 mg DAILY@06 PO Last administered on 10/02/18 05:37; Admin Dose 40 MG; Start 10/01/18 at 06:00 Tramadol HCl (Ultram) 50 mg Q6H PRN PO MODERATE PAIN LEVEL 4-6 Last administered on 10/02/18 05:38; Admin Dose 50 MG; Start 09/30/18 at 10:00 Morphine Sulfate (morphine) 2 mg Q4H PRN IV SEVERE PAIN LEVEL 7-10 Last administered on 10/02/18 08:06; Admin Dose 2 MG; Start 10/01/18 at 10:00 Ceftriaxone Sodium 50 ml @ 100 mls/hr Q24H IVPB Last administered on 10/01/18 13:13; Admin Dose 100 MLS/HR; Start 10/01/18 at 13:00 Tamsulosin HCl (Flomax) 0.4 mg HS PO Last administered on 10/01/18at 19:54; Admin Dose 0.4 MG; Start 10/01/18 at 21:00 Zolpidem Tartrate (Ambien) 5 mg HS PRN PO INSOMNIA Last administered on 10/01/18at 23:30; Admin Dose 5 MG; Start 10/01/18 at 23:30 Enoxaparin Sodium (Lovenox) 40 mg DAILY SC ; Start 10/02/18 at 09:00 Potassium Chloride 100 ml @ 50 mls/hr Q2H IVPB ; Start 10/02/18 at 09:00; Stop 10/02/18 at 12:59 Metoclopramide HCl (Reglan) 10 mg TID PRN IV nausea; Start 10/02/18 at 08:00 Assessment/Plan Hospital Course (Demo Recall) 33-year-old female with known history of renal tubular acidosis, nephrolithiasis and hypokalemia, presented to the emergency room complaining of left flank pain with nausea and feeling fatigued. She underwent a CT scan of the abdomen and pelvis and that showed: 1. Numerous bilateral nonobstructing renal calculi are again seen now with a linear cluster of calculi in the distal right ureter without hydronephrosis or hydroureter. 2. Mild focal anterior bladder wall thickening is now seen measuring approximately 0.6 cm. Focal inflammatory process may be considered as well as neoplasm. Consider follow-up bladder ultrasound or CT to assess stability. Consider cystoscopy or further urologic evaluation as warranted. The patient complains of the pain in the left flank area however the stones are in the distal right ureter. Impression: Distal right ureteral stones and bilateral renal stones. Renal tubular acidosis. Recommend: Pain medications, strain the urine, she already had a KUB that showed the stones as well. She should be able to pass the stones on her own and if she does not and she has pain then we will intervene. But her pain is on the left side but the ureteral stones are in the distal right ureter. The stones in her kidneys are not obstructing and therefore are not causing any pain. Urologically no plan for any surgical intervention at the present CUBA WU MD Oct 02, 2018 08:43
[2018-10-02] MEDS: POTASSIUM CHLORIDE 100 ML IVPB SCH ×2 (08:52→12:51)
[2018-10-02] MEDS: CITRIC ACID/NA CITRATE 30 ML CUP PO SCH ×2 (08:54→21:38)
[2018-10-02] MEDS: POTASSIUM CHLORIDE (SR) 20 MEQ TAB PO SCH (08:55)
[2018-10-02] MEDS: NA BICARBONATE 650 MG TAB PO SCH ×3 (08:55→21:38)
[2018-10-02] MEDS: ENOXAPARIN 40 MG/0.4 ML SYG SC SCH (08:55)
[2018-10-02] MEDS ORDERED: POTASSIUM CHLORIDE (SR) 20 MEQ TAB PO STA (10:52)
[2018-10-02] MEDS: HYDROmorphONE 1 MG/ML SYG IV PRN ×3 (11:23→19:53)
--- NOTE | 2018-10-02 11:34 | PN ---
Date/Time of Note Date/Time of Note DATE: 10/02/18 TIME: 11:28 Assessment/Plan VTE Prophylaxis Risk score (from Ns)>0 risk: 3 SCD applied (from Ns): Yes Pharmacological prophylaxis: other (scds) Lines/Catheters IV [facility]from [facility] Urinary Cath still in place: No Assessment/Plan Hospital Course Assessment: Elevated lipase/amylase -Does not clinically present as pancreatitis Left lower back pain Multiple nonobstructing renal calculi Cluster of calculi in the distal right ureter without hydronephrosis or hydroureter. Bladder wall thickening- Sjogren's syndrome Renal tubular acidosis Hypokalemia Chronic anemia Hx of renal tubular acidosis Plan: Await IgG Abd us- shows normal CBD Does not clinically present as pancreatitis elevated amylase can be explained possibly 2/2 to known Sjogren's disease unclear cause of elevated lipase Will continue to monitor Patient seen in collaboration with Dr. Haider Subjective: Course reviewed with nursing staff Patient interviewed and examined All labs, imaging and other results reviewed The patient feels well, still c/o left lower back pain She denies upper abd pain, nausea or vomiting, no pain with eating noted. PHYSICAL EXAMINATION: GENERAL: Alert & oriented x 3, in no acute distress SKIN: No lesions, HEAD: Normocephalic, atraumatic, no tenderness. EYES: Pupils equal reactive to light no discharge. EARS/NOSE AND THROAT: Ears normal, nose normal, oropharynx normal, oral membranes well hydrated without lesions. NECK: Supple, no masses, CHEST: Inspection within normal limits. CARDIOVASCULAR: Heart: Regular rate and rhythm RESPIRATORY: Lungs clear to auscultation GASTROINTESTINAL AND LIVER: Abdomen: Soft, LL back tenderness, non-distended, no hernias, no masses, no organomegaly, no ascites, no guarding, no rebound tenderness, normoactive bowel sounds. Rectal: Deferred. EXTREMITIES: No cyanosis, clubbing or edema. Result Diagram: 10/02/18 0528 10/02/18527 Results 24hrs Laboratory Tests Test 10/01/18 16:54 10/02/18 05:28 Potassium Level 3.3 L 3.0 L White Blood Count 5.3 # Red Blood Count 3.95 L Hemoglobin 10.8 L Hematocrit 35.2 L Mean Corpuscular Volume 89.1 Mean Corpuscular Hemoglobin 27.3 L Mean Corpuscular Hemoglobin Concent 30.7 L Red Cell Distribution Width 18.9 H Platelet Count 298 Mean Platelet Volume 11.2 H Immature Granulocytes % 0.200 Neutrophils % 56.0 Lymphocytes % 34.9 Monocytes % 6.0 Eosinophils % 2.5 Basophils % 0.4 Nucleated Red Blood Cells % 0.0 Immature Granulocytes # 0.010 Neutrophils # 3.0 Lymphocytes # 1.9 Monocytes # 0.3 Eosinophils # 0.1 Basophils # 0.0 Nucleated Red Blood Cells # 0.0 Sodium Level 144 Chloride Level 120 H Carbon Dioxide Level 14 L Anion Gap 10 Blood Urea Nitrogen 3 L Creatinine 0.80 Est Glomerular Filtrat Rate mL/min > 60 Glucose Level 94 Calcium Level 8.4 Total Bilirubin 0.4 Direct Bilirubin 0.00 Indirect Bilirubin 0.4 Aspartate Amino Transf (AST/SGOT) 21 Alanine Aminotransferase (ALT/SGPT) 10 L Alkaline Phosphatase 109 Total Protein 7.3 Albumin 3.8 Globulin 3.50 H Albumin/Globulin Ratio 1.08 Amylase Level 151 H Lipase 606 H Exam/Review of Systems Exam Vitals Vital Signs Date Temp Pulse Resp B/P (MAP) Pulse Ox O2 O2 Flow FiO2 Time Delivery Rate 10/02/18 97.7 72 16 105/57 100 08:00 (73) 09/30/18 Room Air 04:34 Intake and Output 10/01/18 10/01/18 10/02/18 1515:00 23:00 07:00 IntakeIntake Total 50 ml 2100 ml 650 ml BalanceBalance 50 ml 2100 ml 650 ml Results Results 24hrs Laboratory Tests Test 10/01/18 16:54 10/02/18 05:28 Potassium Level 3.3 L 3.0 L White Blood Count 5.3 # Red Blood Count 3.95 L Hemoglobin 10.8 L Hematocrit 35.2 L Mean Corpuscular Volume 89.1 Mean Corpuscular Hemoglobin 27.3 L Mean Corpuscular Hemoglobin Concent 30.7 L Red Cell Distribution Width 18.9 H Platelet Count 298 Mean Platelet Volume 11.2 H Immature Granulocytes % 0.200 Neutrophils % 56.0 Lymphocytes % 34.9 Monocytes % 6.0 Eosinophils % 2.5 Basophils % 0.4 Nucleated Red Blood Cells % 0.0 Immature Granulocytes # 0.010 Neutrophils # 3.0 Lymphocytes # 1.9 Monocytes # 0.3 Eosinophils # 0.1 Basophils # 0.0 Nucleated Red Blood Cells # 0.0 Sodium Level 144 Chloride Level 120 H Carbon Dioxide Level 14 L Anion Gap 10 Blood Urea Nitrogen 3 L Creatinine 0.80 Est Glomerular Filtrat Rate mL/min > 60 Glucose Level 94 Calcium Level 8.4 Total Bilirubin 0.4 Direct Bilirubin 0.00 Indirect Bilirubin 0.4 Aspartate Amino Transf (AST/SGOT) 21 Alanine Aminotransferase (ALT/SGPT) 10 L Alkaline Phosphatase 109 Total Protein 7.3 Albumin 3.8 Globulin 3.50 H Albumin/Globulin Ratio 1.08 Amylase Level 151 H Lipase 606 H Medications Medication Current Medications Potassium Chloride 30 meq/ Sodium Chloride 1,015 ml @ 100 mls/hr Q10H9M IV Last administered on 10/02/18 00:34; Admin Dose 70 MLS/HR; Start 09/30/18 at 11:00 Citric Acid/ Sodium Citrate (Bicitra) 30 ml BID PO Last administered on 10/02/18 08:54; Admin Dose 30 ML; Start 09/30/18 at 10:30 Pantoprazole (Protonix Tab) 40 mg DAILY@06 PO Last administered on 10/02/18 05:37; Admin Dose 40 MG; Start 10/01/18 at 06:00 Tramadol HCl (Ultram) 50 mg Q6H PRN PO MODERATE PAIN LEVEL 4-6 Last a dministered on 10/02/18 05:38; Admin Dose 50 MG; Start 09/30/18 at 10:00 Ceftriaxone Sodium 50 ml @ 100 mls/hr Q24H IVPB Last administered on 10/01/18 13:13; Admin Dose 100 MLS/HR; Start 10/01/18 at 13:00 Tamsulosin HCl (Flomax) 0.4 mg HS PO Last administered on 10/01/18 19:54; Admin Dose 0.4 MG; Start 10/01/18 at 21:00 Zolpidem Tartrate (Ambien) 5 mg HS PRN PO INSOMNIA Last administered on 23:30; Admin Dose 5 MG; Start 10/01/18 at 23:30 Enoxaparin Sodium (Lovenox) 40 mg DAILY SC Last administered on 10/02/18 08:55; Admin Dose 40 MG; Start 10/02/18 at 09:00 Potassium Chloride 100 ml @ 50 mls/hr Q2H IVPB Last administered on 10/02/18at 08:52; Admin Dose 50 MLS/HR; Start 10/02/18 at 09:00; Stop 10/02/18 at 12:59 Metoclopramide HCl (Reglan) 10 mg TID PRN IV nausea; Start 10/02/18 at 08:00 Hydromorphone HCl (Dilaudid) 1 mg Q4H PRN IV PAIN LEVEL 5-10 Last administered on 10/02/18at 11:23; Admin Dose 1 MG; Start 10/02/18 at 11:00 Potassium Chloride (Klor-Con 10) 30 meq TID PO ; Start 10/02/18 at 13:00 Sodium Bicarbonate (Sodium Bicarbonate Tab) 1,300 mg TID PO ; Start 10/02/18 at 13:00 JACKLYN BILLINGSLEY Oct 02, 2018 11:33
--- NOTE | 2018-10-02 11:52 | PN ---
Date/Time of Note Date/Time of Note DATE: 10/02/18 TIME: 11:52 Assessment/Plan VTE [place] [facility] [place]: 3 [place] [facility] [place] Yes Pharmacological prophylaxis: NA/contraindicated Pharm contraindication: low risk/ambulating Lines/Catheters IV C[facility]ter Type (from [facility] [place] Urinary Cath still in place: No Assessment/Plan Hospital Course 33 y/o with 1. Left flank pain likely due to . Nephrolithiasis with calcification in the distal ureter. vs Pancreatitis however the abdominal x-ray and scan scan shows stone in the distal right ureter but the pain is present on the left flank. Patient also has elevated lipase but per GI clinically does not look patient has evidence of pancreatitis 2. The patient has metabolic acidosis. 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 chronic hypokalemia. 4. Dehydration. 5. Hyperchloremic metabolic acidosis. 6. Elevated lipase and Plan - IV fluids 1/2 ns with KCL at 100 cc/hr - po kcl - Abdominal Xray for renal calculus which shows Similar position multiple stones in the distal right ureter , no surgical intervention per Dr. Alfaro continue with Flomax. Continue to strain the urine - Abd U/S with Contracted gallbladder. No obvious gallstones or sludge.2. No biliary duct dilatation. - cw rocephin - fu GI recs/urology recs - Recheck K - Pain control with Dilaudid - ucx - GI/DVT prophylaxsis Result Diagram: 10/02/1852710/02/18527 Results 24hrs Laboratory Tests Test 10/01/18 16:54 10/02/18 05:28 Potassium Level 3.3 L 3.0 L White Blood Count 5.3 # Red Blood Count 3.95 L Hemoglobin 10.8 L Hematocrit 35.2 L Mean Corpuscular Volume 89.1 Mean Corpuscular Hemoglobin 27.3 L Mean Corpuscular Hemoglobin Concent 30.7 L Red Cell Distribution Width 18.9 H Platelet Count 298 Mean Platelet Volume 11.2 H Immature Granulocytes % 0.200 Neutrophils % 56.0 Lymphocytes % 34.9 Monocytes % 6.0 Eosinophils % 2.5 Basophils % 0.4 Nucleated Red Blood Cells % 0.0 Immature Granulocytes # 0.010 Neutrophils # 3.0 Lymphocytes # 1.9 Monocytes # 0.3 Eosinophils # 0.1 Basophils # 0.0 Nucleated Red Blood Cells # 0.0 Sodium Level 144 Chloride Level 120 H Carbon Dioxide Level 14 L Anion Gap 10 Blood Urea Nitrogen 3 L Creatinine 0.80 Est Glomerular Filtrat Rate mL/min > 60 Glucose Level 94 Calcium Level 8.4 Total Bilirubin 0.4 Direct Bilirubin 0.00 Indirect Bilirubin 0.4 Aspartate Amino Transf (AST/SGOT) 21 Alanine Aminotransferase (ALT/SGPT) 10 L Alkaline Phosphatase 109 Total Protein 7.3 Albumin 3.8 Globulin 3.50 H Albumin/Globulin Ratio 1.08 Amylase Level 151 H Lipase 606 H Subjective 24 Hr Interval Summary Free Text/Dictation pain in left flank Exam/Review of Systems Exam Vitals Vital Signs Date Temp Pulse Resp B/P (MAP) Pulse Ox O2 O2 Flow FiO2 Time Delivery Rate 10/02/18 97.7 72 16 105/57 100 08:00 (73) 09/30/18 Room Air 04:34 Intake and Output 10/01/18 10/01/18 10/02/18 1515:00 23:00 07:00 IntakeIntake Total 50 ml 2100 ml 650 ml BalanceBalance 50 ml 2100 ml 650 ml Exam HEENT: Head is atraumatic, normocephalic. Pupils are equal, reactive. NECK: Supple. No JVD. LUNGS: Clear. CARDIOVASCULAR: S1, S2 is normal. ABDOMEN:TTP Left flank EXTREMITIES: No cyanosis, clubbing, edema. CENTRAL NERVOUS SYSTEM: The patient is awake, alert. No focal deficit. Results Results 24hrs Laboratory Tests Test 10/01/18 16:54 10/02/18 05:28 Potassium Level 3.3 L 3.0 L White Blood Count 5.3 # Red Blood Count 3.95 L Hemoglobin 10.8 L Hematocrit 35.2 L Mean Corpuscular Volume 89.1 Mean Corpuscular Hemoglobin 27.3 L Mean Corpuscular Hemoglobin Concent 30.7 L Red Cell Distribution Width 18.9 H Platelet Count 298 Mean Platelet Volume 11.2 H Immature Granulocytes % 0.200 Neutrophils % 56.0 Lymphocytes % 34.9 Monocytes % 6.0 Eosinophils % 2.5 Basophils % 0.4 Nucleated Red Blood Cells % 0.0 Immature Granulocytes # 0.010 Neutrophils # 3.0 Lymphocytes # 1.9 Monocytes # 0.3 Eosinophils # 0.1 Basophils # 0.0 Nucleated Red Blood Cells # 0.0 Sodium Level 144 Chloride Level 120 H Carbon Dioxide Level 14 L Anion Gap 10 Blood Urea Nitrogen 3 L Creatinine 0.80 Est Glomerular Filtrat Rate mL/min > 60 Glucose Level 94 Calcium Level 8.4 Total Bilirubin 0.4 Direct Bilirubin 0.00 Indirect Bilirubin 0.4 Aspartate Amino Transf (AST/SGOT) 21 Alanine Aminotransferase (ALT/SGPT) 10 L Alkaline Phosphatase 109 Total Protein 7.3 Albumin 3.8 Globulin 3.50 H Albumin/Globulin Ratio 1.08 Amylase Level 151 H Lipase 606 H Medications Medication Current Medications Potassium Chloride 30 meq/ Sodium Chloride 1,015 ml @ 100 mls/hr Q10H9M IV Last administered on 10/02/18 00:34; Admin Dose 70 MLS/HR; Start 09/30/18 at 11:00 Citric Acid/ Sodium Citrate (Bicitra) 30 ml BID PO Last administered on 10/02/18 08:54; Admin Dose 30 ML; Start 09/30/18 at 10:30 Pantoprazole (Protonix Tab) 40 mg DAILY@06 PO Last administered on 10/02/18 05:37; Admin Dose 40 MG; Start 10/01/18 at 06:00 Tramadol HCl (Ultram) 50 mg Q6H PRN PO MODERATE PAIN LEVEL 4-6 Last administered on 10/02/18 05:38; Admin Dose 50 MG; Start 09/30/18 at 10:00 Ceftriaxone Sodium 50 ml @ 100 mls/hr Q24H IVPB Last administered on 10/01/18 13:13; Admin Dose 100 MLS/HR; Start 10/01/18 at 13:00 Tamsulosin HCl (Flomax) 0.4 mg HS PO Last administered on 10/01/18 19:54; Admin Dose 0.4 MG; Start 10/01/18 at 21:00 Zolpidem Tartrate (Ambien) 5 mg HS PRN PO INSOMNIA Last administered on 10/01/18 23:30; Admin Dose 5 MG; Start 10/01/18 at 23:30 Enoxaparin Sodium (Lovenox) 40 mg DAILY SC Last administered on 10/02/18 08:55; Admin Dose 40 MG; Start 10/02/18 at 09:00 Potassium Chloride 100 ml @ 50 mls/hr Q2H IVPB Last administered on 4/2/19at 08:52; Admin Dose 50 MLS/HR; Start 10/02/18 at 09:00; Stop 10/02/18 at 12:59 Metoclopramide HCl (Reglan) 10 mg TID PRN IV nausea; Start 10/02/18 at 08:00 Hydromorphone HCl (Dilaudid) 1 mg Q4H PRN IV PAIN LEVEL 5-10 Last administered on 10/02/18at 11:23; Admin Dose 1 MG; Start 10/02/18 at 11:00 Potassium Chloride (Klor-Con 10) 30 meq TID PO ; Start 10/02/18 at 13:00 Sodium Bicarbonate (Sodium Bicarbonate Tab) 1,300 mg TID PO ; Start 10/02/18 at 13:00 LAVERNE COBB MD Oct 02, 2018 11:52
[2018-10-02] MEDS: CEFTRIAXONE 1 GM/50 ML (PMX) 50 ML IVPB SCH (12:11)
[2018-10-02] MEDS: POTASSIUM CHLORIDE (SR) 10 MEQ TAB PO SCH ×2 (13:55→21:40)
[2018-10-02 20:58] VITALS: BP 95/53; PULSE 77; RESP 20
[2018-10-02] MEDS: ZOLPIDEM 5 MG TAB PO PRN (21:40)
[2018-10-02] MEDS: TAMSULOSIN (SR) 0.4 MG CAP PO SCH (21:40)
[2018-10-03] MEDS: traMADol 50 MG TAB PO PRN ×2 (00:20→10:33)
[2018-10-03 02:35] VITALS: BP 98/54; PULSE 75; RESP 20
[2018-10-03] MEDS: HYDROmorphONE 1 MG/ML SYG IV PRN ×5 (02:48→20:59)
[2018-10-03 03:56] VITALS: BP 99/55
[2018-10-03] MEDS: POTASSIUM CHLORIDE 30 MEQ in SOD CHLORIDE 0.45% 1,000 ML IV SCH ×2 (05:44→22:25)
[2018-10-03] MEDS: PANTOPRAZOLE (EC) 40 MG TAB PO SCH (05:44)
[2018-10-03 08:00] VITALS: BP 92/51; PULSE 73; RESP 18
[2018-10-03] MEDS: NA BICARBONATE 650 MG TAB PO SCH ×3 (08:14→20:58)
[2018-10-03] MEDS: CITRIC ACID/NA CITRATE 30 ML CUP PO SCH ×3 (08:15→20:58)
[2018-10-03] MEDS: POTASSIUM CHLORIDE (SR) 10 MEQ TAB PO SCH ×3 (08:15→20:58)
[2018-10-03] MEDS: ENOXAPARIN 40 MG/0.4 ML SYG SC SCH (08:16)
--- NOTE | 2018-10-03 11:51 | PN ---
Date/Time of Note Date/Time of Note DATE: 10/03/18 TIME: 11:48 Assessment/Plan VTE Prophylaxis Risk score (from Ns)>0 risk: 3 SCD applied (from Ns): Yes Pharmacological prophylaxis: NA/contraindicated Pharm contraindication: low risk/ambulating Lines/Catheters IV C[facility]ter Type (from [facility] Peripheral IV Urinary Cath still in place: No Assessment/Plan Hospital Course 33 y/o with 1. Left flank pain likely due to . Nephrolithiasis with calcification in the d istal ureter. vs Pancreatitis however the abdominal x-ray and scan scan shows stone in the distal right ureter but the pain is present on the left flank. Patient also has elevated lipase but per GI clinically does not look patient has evidence of pancreatitis 2. The patient has metabolic acidosis. 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 chronic hypokalemia. 4. Dehydration. 5. Hyperchloremic metabolic acidosis. 6. Elevated lipase and Plan - now with rt flank pain Abdominal Xray for renal calculus which shows Similar position multiple stones in the distal right ureter , no surgical intervention per Dr. Alfaro continue with Flomax. Continue to strain the urine, f/u Dr lemos recs? intervention for rt stone as symtomatic now - Abd U/S with Contracted gallbladder. No obvious gallstones or sludge.2. No biliary duct dilatation. - cw rocephin - fu GI recs/urology recs - Recheck K tmw - cw sodium bicarb - cw k citrate - cw 1/2 NS with 30 meq adn kcl 30 tid - Pain control with Dilaudid - ucx - GI/DVT prophylaxsis Result Diagram: 10/02/18 0528 10/03/18 0625 Results 24hrs Laboratory Tests Test 10/02/18 14:51 10/02/18 23:47 10/03/18 06:25 Potassium Level 3.4 L 3.0 L 3.8 Sodium Level 139 Chloride Level 116 H Carbon Dioxide Level 14 L Anion Gap 9 Blood Urea Nitrogen 6 L Creatinine 0.83 Est Glomerular Filtrat Rate mL/min > 60 Glucose Level 81 Calcium Level 7.7 L Subjective 24 Hr Interval Summary Free Text/Dictation pain in rt flank too now felt that she passed some stone Exam/Review of Systems Exam Vitals Vital Signs Date Temp Pulse Resp B/P (MAP) Pulse Ox O2 O2 Flow FiO2 Time Delivery Rate 10/03/18 98.0 73 18 92/51 (65) 100 Room Air 08:00 Intake and Output 10/02/18 10/02/18 10/03/18 1515:00 23:00 07:00 IntakeIntake Total 1120 ml 1565 ml 1155 ml OutputOutput Total 1200 ml BalanceBalance 1120 ml 365 ml 1155 ml Exam HEENT: Head is atraumatic, normocephalic. Pupils are equal, reactive. NECK: Supple. No JVD. LUNGS: Clear. CARDIOVASCULAR: S1, S2 is normal. ABDOMEN:TTP Left flank EXTREMITIES: No cyanosis, clubbing, edema. CENTRAL NERVOUS SYSTEM: The patient is awake, alert. No focal deficit. Results Results 24hrs Laboratory Tests Test 10/02/18 14:51 10/02/18 23:47 10/03/18 06:25 Potassium Level 3.4 L 3.0 L 3.8 Sodium Level 139 Chloride Level 116 H Carbon Dioxide Level 14 L Anion Gap 9 Blood Urea Nitrogen 6 L Creatinine 0.83 Est Glomerular Filtrat Rate mL/min > 60 Glucose Level 81 Calcium Level 7.7 L Medications Medication Current Medications Potassium Chloride 30 meq/ Sodium Chloride 1,015 ml @ 100 mls/hr Q10H9M IV Last administered on 10/03/18 05:44; Admin Dose 100 MLS/HR; Start 09/30/18 at 11:00 Citric Acid/ Sodium Citrate (Bicitra) 30 ml BID PO Last administered on 10/03/18 08:15; Admin Dose 30 ML; Start 09/30/18 at 10:30 Pantoprazole (Protonix Tab) 40 mg DAILY@06 PO Last administered on 10/03/18 05:44; Admin Dose 40 MG; Start 10/01/18 at 06:00 Tramadol HCl (Ultram) 50 mg Q6H PRN PO MODERATE PAIN LEVEL 4-6 Last administered on 10/03/18 10:33; Admin Dose 50 MG; Start 09/30/18 at 10:00 Ceftriaxone Sodium 50 ml @ 100 mls/hr Q24H IVPB Last administered on 10/02/18 12:11; Admin Dose 100 MLS/HR; Start 10/01/18 at 13:00 Tamsulosin HCl (Flomax) 0.4 mg HS PO Last administered on 10/02/18 21:40; Admin Dose 0.4 MG; Start 10/01/18 at 21:00 Zolpidem Tartrate (Ambien) 5 mg HS PRN PO INSOMNIA Last administered on 21:40; Admin Dose 5 MG; Start 10/01/18 at 23:30 Enoxaparin Sodium (Lovenox) 40 mg DAILY SC Last administered on 10/03/18 08:16; Admin Dose 40 MG; Start 10/02/18 at 09:00 Metoclopramide HCl (Reglan) 10 mg TID PRN IV nausea Last administered on 10/02/18 15:46; Admin Dose 10 MG; Start 10/02/18 at 08:00 Hydromorphone HCl (Dilaudid) 1 mg Q4H PRN IV PAIN LEVEL 5-10 Last administered on 10/03/18 07:58; Admin Dose 1 MG; Start 10/02/18 at 11:00 Potassium Chloride (Klor-Con 10) 30 meq TID PO Last administered on 10/03/18 08:15; Admin Dose 30 MEQ; Start 10/02/18 at 13:00 Sodium Bicarbonate (Sodium Bicarbonate Tab) 1,300 mg TID PO Last administered on 10/03/18 08:14; Admin Dose 1,300 MG; Start 10/02/18 at 13:00 LAVERNE COBB MD Oct 03, 2018 11:51
[2018-10-03] MEDS: CEFTRIAXONE 1 GM/50 ML (PMX) 50 ML IVPB SCH (12:52)
[2018-10-03 14:20] VITALS: BP 104/58; PULSE 68; RESP 17
--- NOTE | 2018-10-03 15:18 | PN ---
Date/Time of Note Date/Time of Note DATE: 10/03/18 TIME: 15:14 Assessment/Plan VTE Prophylaxis Risk score (from Ns)>0 risk: 3 SCD applied (from Ns): Yes Pharmacological prophylaxis: other (scds) Lines/Catheters [facility] Peripheral IV Urinary Cath still in place: No Assessment/Plan Hospital Course Assessment: Elevated lipase/amylase -Does not clinically present as pancreatitis Left lower back pain Multiple nonobstructing renal calculi Cluster of calculi in the distal right ureter without hydronephrosis or hydroureter. Bladder wall thickening- Sjogren's syndrome Renal tubular acidosis Hypokalemia Chronic anemia Hx of renal tubular acidosis Plan: Continue to monitor labs - will recheck lipase/amylase in am- if continues to trend up will consider repeat imaging with contrast Await IgG Abd us- shows normal CBD Does not clinically present as pancreatitis elevated amylase can be explained possibly 2/2 to known Sjogren's disease unclear cause of elevated lipase Will continue to monitor Patient seen in collaboration with Dr. Haider Subjective: Course reviewed with nursing staff Patient interviewed and examined All labs, imaging and other results reviewed Pt continues to deny upper abd pain or bloating, tolerating diet well She now c/o bilateral lower back pain. PHYSICAL EXAMINATION: GENERAL: Alert & oriented x 3, in no acute distress SKIN: No lesions, HEAD: Normocephalic, atraumatic, no tenderness. EYES: Pupils equal reactive to light no discharge. EARS/NOSE AND THROAT: Ears normal, nose normal, oropharynx normal, oral membranes well hydrated without lesions. NECK: Supple, no masses, CHEST: Inspection within normal limits. CARDIOVASCULAR: Heart: Regular rate and rhythm RESPIRATORY: Lungs clear to auscultation GASTROINTESTINAL AND LIVER: Abdomen: Soft, LL back tenderness, non-distended, no hernias, no masses, no organomegaly, no ascites, no guarding, no rebound tenderness, normoactive bowel sounds. Rectal: Deferred. EXTREMITIES: No cyanosis, clubbing or edema. Result Diagram: 10/02/18 0528 10/03/18 0625 Results 24hrs Laboratory Tests Test 10/02/18 23:47 10/03/18 06:25 Potassium Level 3.0 L 3.8 Sodium Level 139 Chloride Level 116 H Carbon Dioxide Level 14 L Anion Gap 9 Blood Urea Nitrogen 6 L Creatinine 0.83 Est Glomerular Filtrat Rate mL/min > 60 Glucose Level 81 Calcium Level 7.7 L Exam/Review of Systems Exam Vitals Vital Signs Date Temp Pulse Resp B/P (MAP) Pulse Ox O2 O2 Flow FiO2 Time Delivery Rate 10/03/18 98.0 73 18 92/51 (65) 100 Room Air 08:00 Intake and Output 10/02/18 10/02/18 10/03/18 1414:59 22:59 06:59 IntakeIntake Total 1120 ml 1565 ml 1155 ml OutputOutput Total 1200 ml BalanceBalance 1120 ml 365 ml 1155 ml Results Results 24hrs Laboratory Tests Test 10/02/18 23:47 10/03/18 06:25 Potassium Level 3.0 L 3.8 Sodium Level 139 Chloride Level 116 H Carbon Dioxide Level 14 L Anion Gap 9 Blood Urea Nitrogen 6 L Creatinine 0.83 Est Glomerular Filtrat Rate mL/min > 60 Glucose Level 81 Calcium Level 7.7 L Medications Medication Current Medications Potassium Chloride 30 meq/ Sodium Chloride 1,015 ml @ 70 mls/hr [id number] IV Last administered on 10/03/18 05:44; Admin Dose 100 MLS/HR; Start 09/30/18 at 11:00 Pantoprazole (Protonix Tab) 40 mg DAILY@06 PO Last administered on 10/03/18 05:44; Admin Dose 40 MG; Start 10/01/18 at 06:00 Tramadol HCl (Ultram) 50 mg Q6H PRN PO MODERATE PAIN LEVEL 4-6 Last administered on 10/03/18at 10:33; Admin Dose 50 MG; Start 09/30/18 at 10:00 Ceftriaxone Sodium 50 ml @ 100 mls/hr Q24H IVPB Last administered on 10/03/18at 12:52; Admin Dose 100 MLS/HR; Start 10/01/18 at 13:00 Tamsulosin HCl (Flomax) 0.4 mg HS PO Last administered on 10/02/18at 21:40; Admin Dose 0.4 MG; Start 10/01/18 at 21:00 Zolpidem Tartrate (Ambien) 5 mg HS PRN PO INSOMNIA Last administered on 10/02/18 21:40; Admin Dose 5 MG; Start 10/01/18 at 23:30 Enoxaparin Sodium (Lovenox) 40 mg DAILY SC Last administered on 10/03/18 08:16; Admin Dose 40 MG; Start 10/02/18 at 09:00 Metoclopramide HCl (Reglan) 10 mg TID PRN IV nausea Last administered on 15:46; Admin Dose 10 MG; Start 10/02/18 at 08:00 Hydromorphone HCl (Dilaudid) 1 mg Q4H PRN IV PAIN LEVEL 5-10 Last administered on 10/03/18 12:53; Admin Dose 1 MG; Start 10/02/18 at 11:00 Potassium Chloride (Klor-Con 10) 30 meq TID PO Last administered on 10/03/18 12:54; Admin Dose 30 MEQ; Start 10/02/18 at 13:00 Sodium Bicarbonate (Sodium Bicarbonate Tab) 1,300 mg TID PO Last administered on 10/03/18 12:54; Admin Dose 1,300 MG; Start 10/02/18 at 13:00 Citric Acid/ Sodium Citrate (Bicitra) 30 ml TID PO Last administered on 10/03/18 12:54; Admin Dose 30 ML; Start 10/03/18 at 13:00 JACKLYN BILLINGSLEY Oct 03, 2018 15:18
[2018-10-03 19:55] VITALS: BP 109/60; PULSE 78; RESP 17
[2018-10-03] MEDS: TAMSULOSIN (SR) 0.4 MG CAP PO SCH (20:58)
[2018-10-03] MEDS: ZOLPIDEM 5 MG TAB PO PRN (22:24)
[2018-10-04] MEDS: HYDROmorphONE 1 MG/ML SYG IV PRN ×6 (01:15→23:19)
[2018-10-04 02:10] VITALS: BP 112/64; PULSE 79; RESP 18
[2018-10-04] MEDS: PANTOPRAZOLE (EC) 40 MG TAB PO SCH (05:23)
[2018-10-04 07:45] VITALS: BP 106/58; PULSE 77; RESP 16
[2018-10-04] MEDS: CITRIC ACID/NA CITRATE 30 ML CUP PO SCH ×3 (08:31→20:17)
[2018-10-04] MEDS: POTASSIUM CHLORIDE (SR) 10 MEQ TAB PO SCH ×3 (08:32→20:17)
[2018-10-04] MEDS: NA BICARBONATE 650 MG TAB PO SCH ×3 (08:32→21:31)
[2018-10-04] MEDS: ENOXAPARIN 40 MG/0.4 ML SYG SC SCH (08:33)
[2018-10-04] MEDS: traMADol 50 MG TAB PO PRN ×2 (08:39→17:58)
[2018-10-04] MEDS: SOD CHLORIDE 0.45% 1,000 ML IV SCH ×2 (08:41→22:48)
[2018-10-04] MEDS ORDERED: MAGNESIUM SULFATE 2 GM/50 ML 50 ML IVPB ONE (09:30)
[2018-10-04] MEDS: CEFTRIAXONE 1 GM/50 ML (PMX) 50 ML IVPB SCH (12:23)
[2018-10-04 14:35] VITALS: BP 114/59; PULSE 69; RESP 16
--- NOTE | 2018-10-04 15:00 | PN ---
Date/Time of Note Date/Time of Note DATE: 10/04/18 TIME: 14:57 Assessment/Plan VTE Prophylaxis Risk score (from Ns)>0 risk: 6 SCD applied (from Ns): Yes Pharmacological prophylaxis: NA/contraindicated Pharm contraindication: low risk/ambulating Lines/Catheters IV Catheter Type (from [facility]rsg): Peripheral IV Urinary Cath still in place: No Assessment/Plan Hospital Course 33 y/o with 1. Left flank pain likely due to . Nephrolithiasis with calcification in the d istal ureter. vs Pancreatitis however the abdominal x-ray and scan scan shows stone in the distal right ureter but the pain is present on the left flank. Patient also has elevated lipase but per GI clinically does not look patient has evidence of pancreatitis 2. The patient has metabolic acidosis. 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 chronic hypokalemia. 4. Dehydration. 5. Hyperchloremic metabolic acidosis. 6. Elevated lipase and Plan - now with rt flank pain Abdominal Xray for renal calculus which shows Similar position multiple stones in the distal right ureter , spoke to Dr Alfaro> repe at [facility] today , will sandra do some intervention - Abd U/S with Contracted gallbladder. No obvious gallstones or sludge.2. No biliary duct dilatation. - cw rocephin - fu GI recs/urology recs - Recheck K in evening . cw KCL 30 tid - cw sodium bicarb 1300 tid - cw bictra 30 tid - cw 1/ NS - Pain control with Dilaudid - ucxneg so far - GI/DVT prophylaxsis Result Diagram: 10/02/18 0528 10/04/18 1218 Results 24hrs Laboratory Tests Test 10/03/18 20:31 10/04/18 05:22 10/04/18 12:18 Potassium Level 2.9 *L 5.6 #H 2.7 #*L Sodium Level 137 Chloride Level 114 H Carbon Dioxide Level 16 L Anion Gap 7 Blood Urea Nitrogen 5 L Creatinine 0.75 Est Glomerular Filtrat Rate mL/min > 60 Glucose Level 82 Calcium Level 7.3 L Magnesium Level 1.6 L Subjective 24 Hr Interval Summary Free Text/Dictation Still having pain in both flanks K WAS 5.6 > FLUIDS with KCL was stopped now k 2.7 Exam/Review of Systems Exam Vitals Vital Signs Date Temp Pulse Resp B/P (MAP) Pulse Ox O2 O2 Flow FiO2 Time Delivery Rate 10/04/18 97.5 69 16 114/59 100 Room Air 14:35 (77) Intake and Output 10/03/18 10/03/18 10/04/18 1515:00 23:00 07:00 IntakeIntake Total 650 ml 1200 ml OutputOutput Total 1000 ml 1100 ml BalanceBalance -350 ml 100 ml Exam HEENT: Head is atraumatic, normocephalic. Pupils are equal, reactive. NECK: Supple. No JVD. LUNGS: Clear. CARDIOVASCULAR: S1, S2 is normal. ABDOMEN:TTP Left flank EXTREMITIES: No cyanosis, clubbing, edema. CENTRAL NERVOUS SYSTEM: The patient is awake, alert. No focal deficit. Results Results 24hrs Laboratory Tests Test 10/03/18 20:31 10/04/18 05:22 10/04/18 12:18 Potassium Level 2.9 *L 5.6 #H 2.7 #*L Sodium Level 137 Chloride Level 114 H Carbon Dioxide Level 16 L Anion Gap 7 Blood Urea Nitrogen 5 L Creatinine 0.75 Est Glomerular Filtrat Rate mL/min > 60 Glucose Level 82 Calcium Level 7.3 L Magnesium Level 1.6 L Medications Medication Current Medications Pantoprazole (Protonix Tab) 40 mg DAILY@06 PO Last administered on 10/04/18at 05:23; Admin Dose 40 MG; Start 10/01/18 at 06:00 Tramadol HCl (Ultram) 50 mg Q6H PRN PO MODERATE PAIN LEVEL 4-6 Last administered on 10/04/18at 08:39; Admin Dose 50 MG; Start 09/30/18 at 10:00 Ceftriaxone Sodium 50 ml @ 100 mls/hr Q24H IVPB Last administered on 10/04/18at 12:23; Admin Dose 100 MLS/HR; Start 10/01/18 at 13:00 Tamsulosin HCl (Flomax) 0.4 mg HS PO Last administered on 10/03/18at 20:58; Admin Dose 0.4 MG; Start 10/01/18 at 21:00 Zolpidem Tartrate (Ambien) 5 mg HS PRN PO INSOMNIA Last administered on 10/03/18at 22:24; Admin Dose 5 MG; Start 10/01/18 at 23:30 Enoxaparin Sodium (Lovenox) 40 mg DAILY SC Last administered on 10/04/18 08:33; Admin Dose 40 MG; Start 10/02/18 at 09:00 Metoclopramide HCl (Reglan) 10 mg TID PRN IV nausea Last administered on 10/02/18 15:46; Admin Dose 10 MG; Start 10/02/18 at 08:00 Hydromorphone HCl (Dilaudid) 1 mg Q4H PRN IV PAIN LEVEL 5-10 Last administered on 10/04/18 10:26; Admin Dose 1 MG; Start 10/02/18 at 11:00 Potassium Chloride (Klor-Con 10) 30 meq TID PO Last administered on 10/04/18 13:01; Admin Dose 30 MEQ; Start 10/02/18 at 13:00 Sodium Bicarbonate (Sodium Bicarbonate Tab) 1,300 mg TID PO Last administered on 10/04/18 12:24; Admin Dose 1,300 MG; Start 10/02/18 at 13:00 Citric Acid/ Sodium Citrate (Bicitra) 30 ml TID PO Last administered on 10/04/18 12:24; Admin Dose 30 ML; Start 10/03/18 at 13:00 Sodium Chloride 1,000 ml @ 70 mls/hr [id number] IV Last administered on 10/04/18 08:41; Admin Dose 70 MLS/HR; Start 10/04/18 at 08:30 LAVERNE COBB MD Oct 04, 2018 15:00
--- NOTE | 2018-10-04 15:22 | PN ---
Date/Time of Note Date/Time of Note DATE: 10/04/18 TIME: 15:21 Assessment/Plan VTE Prophylaxis Risk score (from Ns)>0 risk: 6 SCD applied (from Ns): Yes Pharmacological prophylaxis: other (scds) Lines/Catheters [facility] C[facility] Type [facility]from [facility]): Peripheral IV Urinary Cath still in place: No Assessment/Plan Hospital Course Assessment: Elevated lipase/amylase -Does not clinically present as pancreatitis Left lower back pain Multiple nonobstructing renal calculi Cluster of calculi in the distal right ureter without hydronephrosis or hydroureter. Bladder wall thickening- Sjogren's syndrome Renal tubular acidosis Hypokalemia Chronic anemia Hx of renal tubular acidosis Plan: Continue to monitor labs - will recheck lipase/amylase in am- if continues to trend up will consider repeat imaging with contrast IgG- pending Does not clinically present as pancreatitis elevated amylase can be explained possibly 2/2 to known Sjogren's disease unclear cause of elevated lipase Will continue to monitor Patient seen in collaboration with Dr. Haider Subjective: Course reviewed with nursing staff Patient interviewed and examined All labs, imaging and other results reviewed Pt tolerating diet well, no c/o n/v or abd pain, does c/o some bloating and continues to c/o bilateral lower back pain. PHYSICAL EXAMINATION: GENERAL: Alert & oriented x 3, in no acute distress SKIN: No lesions, HEAD: Normocephalic, atraumatic, no tenderness. EYES: Pupils equal reactive to light no discharge. EARS/NOSE AND THROAT: Ears normal, nose normal, oropharynx normal, oral membranes well hydrated without lesions. NECK: Supple, no masses, CHEST: Inspection within normal limits. CARDIOVASCULAR: Heart: Regular rate and rhythm RESPIRATORY: Lungs clear to auscultation GASTROINTESTINAL AND LIVER: Abdomen: Soft, LL back tenderness, non-distended, no hernias, no masses, no organomegaly, no ascites, no guarding, no rebound tenderness, normoactive bowel sounds. Rectal: Deferred. EXTREMITIES: No cyanosis, clubbing or edema. Result Diagram: 10/02/18 0528 10/04/18 1218 Results 24hrs Laboratory Tests Test 10/03/18 20:31 10/04/18 05:22 10/04/18 12:18 Potassium Level 2.9 *L 5.6 #H 2.7 #*L Sodium Level 137 Chloride Level 114 H Carbon Dioxide Level 16 L Anion Gap 7 Blood Urea Nitrogen 5 L Creatinine 0.75 Est Glomerular Filtrat Rate mL/min > 60 Glucose Level 82 Calcium Level 7.3 L Magnesium Level 1.6 L Exam/Review of Systems Exam Vitals Vital Signs Date Temp Pulse Resp B/P (MAP) Pulse Ox O2 O2 Flow FiO2 Time Delivery Rate 10/04/18 97.5 69 16 114/59 100 Room Air 14:35 (77) Intake and Output 10/03/18 10/03/18 10/04/18 1515:00 23:00 07:00 IntakeIntake Total 650 ml 1200 ml OutputOutput Total 1000 ml 1100 ml BalanceBalance -350 ml 100 ml Results Results 24hrs Laboratory Tests Test 10/03/18 20:31 10/04/18 05:22 10/04/18 12:18 Potassium Level 2.9 *L 5.6 #H 2.7 #*L Sodium Level 137 Chloride Level 114 H Carbon Dioxide Level 16 L Anion Gap 7 Blood Urea Nitrogen 5 L Creatinine 0.75 Est Glomerular Filtrat Rate mL/min > 60 Glucose Level 82 Calcium Level 7.3 L Magnesium Level 1.6 L Medications Medication Current Medications Pantoprazole (Protonix Tab) 40 mg DAILY@06 PO Last administered on 10/04/18 05:23; Admin Dose 40 MG; Start 10/01/18 at 06:00 Tramadol HCl (Ultram) 50 mg Q6H PRN PO MODERATE PAIN LEVEL 4-6 Last administe red on 10/04/18 08:39; Admin Dose 50 MG; Start 09/30/18 at 10:00 Ceftriaxone Sodium 50 ml @ 100 mls/hr Q24H IVPB Last administered on 10/04/18 12:23; Admin Dose 100 MLS/HR; Start 10/01/18 at 13:00 Tamsulosin HCl (Flomax) 0.4 mg HS PO Last administered on 10/03/18 20:58; Admin Dose 0.4 MG; Start 10/01/18 at 21:00 Zolpidem Tartrate (Ambien) 5 mg HS PRN PO INSOMNIA Last administered on 10/03/18 22:24; Admin Dose 5 MG; Start 10/01/18 at 23:30 Enoxaparin Sodium (Lovenox) 40 mg DAILY SC Last administered on 10/04/18 08:33; Admin Dose 40 MG; Start 10/02/18 at 09:00 Metoclopramide HCl (Reglan) 10 mg TID PRN IV nausea Last administered on 10/02/18 15:46; Admin Dose 10 MG; Start 10/02/18 at 08:00 Hydromorphone HCl (Dilaudid) 1 mg Q4H PRN IV PAIN LEVEL 5-10 Last administered on 10/04/18 15:09; Admin Dose 1 MG; Start 10/02/18 at 11:00 Potassium Chloride (Klor-Con 10) 30 meq TID PO Last administered on 10/04/18 13:01; Admin Dose 30 MEQ; Start 10/02/18 at 13:00 Sodium Bicarbonate (Sodium Bicarbonate Tab) 1,300 mg TID PO Last administered on 10/04/18 12:24; Admin Dose 1,300 MG; Start 10/02/18 at 13:00 Citric Acid/ Sodium Citrate (Bicitra) 30 ml TID PO Last administered on 10/04/18 12:24; Admin Dose 30 ML; Start 10/03/18 at 13:00 Sodium Chloride 1,000 ml @ 70 mls/hr [id number] IV Last administered on 10/04/18 08:41; Admin Dose 70 MLS/HR; Start 10/04/18 at 08:30 JACKLYN BILLINGSLEY Oct 04, 2018 15:22
[2018-10-04 19:36] VITALS: BP 114/59; PULSE 78; RESP 17
--- NOTE | 2018-10-04 19:54 | CONS ---
Consult Date/Type/Reason Admit Date/Time Sep 30, 2018 at 02:57 Initial Consult Date 10/01/18 Type of Consultation: Urology Reason for Consultation Distal right ureteral stones, renal tubular acidosis with numerous bilateral renal stones. Requesting Provider: LAVERNE COBB MD Date/Time of Note DATE: 10/04/18 TIME: 19:48 Subjective Patient now complains of pain in both kidneys areas. Objective Vitals Vital Signs Date Temp Pulse Resp B/P (MAP) Pulse Ox O2 O2 Flow FiO2 Time Delivery Rate 10/04/18 97.5 69 16 114/59 100 Room Air 14:35 (77) Intake and Output 10/03/18 10/03/18 10/04/18 1515:00 23:00 07:00 IntakeIntake Total 650 ml 1200 ml OutputOutput Total 1000 ml 1100 ml BalanceBalance -350 ml 100 ml Exam The abdomen is soft there is mild bilateral flank tenderness. Results/Medications Result Diagram: 10/02/18 0528 10/04/18 1548 Results 24 hrs Laboratory Tests Test 10/03/18 20:31 10/04/18 05:22 10/04/18 12:18 10/04/18 15:48 Potassium Level 2.9 *L 5.6 #H 2.7 #*L 3.2 L Sodium Level 137 Chloride Level 114 H Carbon Dioxide Level 16 L Anion Gap 7 Blood Urea Nitrogen 5 L Creatinine 0.75 Est Glomerular Filtrat > 60 Rate mL/min Glucose Level 82 Calcium Level 7.3 L Magnesium Level 1.6 L Home Meds Active Scripts Ferrous Sulfate (Ferrous Sulfate) 325 Mg Tablet., 325 MG PO BID for 30 Days Prov:AMY HERNANDEZ 12/29/17 Reported Medications Multivitamins* (Theragran*) 1 Tab Tab, 1 TAB PO DAILY, TAB 04/06/18 Biotin (Biotin) 5,000 Mcg Tab.rapdis, 5000 MCG PO 04/06/18 Potassium Chloride* (Potassium Chloride*) 20 Meq Tablet.er, 20 MEQ PO TID, TAB.SA 12/19/17 Medications Current Medications Pantoprazole (Protonix Tab) 40 mg DAILY@06 PO Last administered on 10/04/18at 05:23; Admin Dose 40 MG; Start 10/01/18 at 06:00 Tramadol HCl (Ultram) 50 mg Q6H PRN PO MODERATE PAIN LEVEL 4-6 Last administered on 10/04/18 17:58; Admin Dose 50 MG; Start 09/30/18 at 10:00 Ceftriaxone Sodium 50 ml @ 100 mls/hr Q24H IVPB Last administered on 10/04/18 12:23; Admin Dose 100 MLS/HR; Start 10/01/18 at 13:00 Tamsulosin HCl (Flomax) 0.4 mg HS PO Last administered on 10/03/18 20:58; Admin Dose 0.4 MG; Start 10/01/18 at 21:00 Zolpidem Tartrate (Ambien) 5 mg HS PRN PO INSOMNIA Last administered on 10/03/18 22:24; Admin Dose 5 MG; Start 10/01/18 at 23:30 Enoxaparin Sodium (Lovenox) 40 mg DAILY SC Last administered on 10/04/18 08:33; Admin Dose 40 MG; Start 10/02/18 at 09:00 Metoclopramide HCl (Reglan) 10 mg TID PRN IV nausea Last administered on 10/02/18 15:46; Admin Dose 10 MG; Start 10/02/18 at 08:00 Hydromorphone HCl (Dilaudid) 1 mg Q4H PRN IV PAIN LEVEL 5-10 Last administered on 10/04/18 19:19; Admin Dose 1 MG; Start 10/02/18 at 11:00 Potassium Chloride (Klor-Con 10) 30 meq TID PO Last administered on 10/04/18 13:01; Admin Dose 30 MEQ; Start 10/02/18 at 13:00 Sodium Bicarbonate (Sodium Bicarbonate Tab) 1,300 mg TID PO Last administered on 10/04/18 12:24; Admin Dose 1,300 MG; Start 10/02/18 at 13:00 Citric Acid/ Sodium Citrate (Bicitra) 30 ml TID PO Last administered on 10/04/18 12:24; Admin Dose 30 ML; Start 10/03/18 at 13:00 Sodium Chloride 1,000 ml @ 70 mls/hr [id number] IV Last administered on 10/04/18 08:41; Admin Dose 70 MLS/HR; Start 10/04/18 at 08:30 Assessment/Plan Hospital Course (Demo Recall) 33-year-old female with known history of renal tubular acidosis, nephrolithiasis and hypokalemia, presented to the emergency room complaining of left flank pain with nausea and feeling fatigued. She underwent a CT scan of the abdomen and pelvis and that showed: 1. Numerous bilateral nonobstructing renal calculi are again seen now with a linear cluster of calculi in the distal right ureter without hydronephrosis or hydroureter. 2. Mild focal anterior bladder wall thickening is now seen measuring approximately 0.6 cm. Focal inflammatory process may be considered as well as neoplasm. Consider follow-up bladder ultrasound or CT to assess stability. Consider cystoscopy or further urologic evaluation as warranted. The patient is now complaining of bilateral flank pain. A KUB done today shows the stones in the distal right ureter to be unchanged. However one could see a calcification over the sacroiliac joint area that was not there before and that most likely represent a stone that came from the left kidney and to the left ureter and that may be causing her left flank pain. I did show the patient the films of her KUB and I explained to her in detail what we could do. I explained to her cystoscopy and ureteroscopy and laser lithotripsy and insertion of ureteral JJ stent I showed her pictures of similar procedures. I discussed with her the follow-up care and the need to remove the JJ stent in about 4-5 days after the procedure. I also discussed with her the option of giving her more time and may be she will pass the stones on her own. She did not appear to be in such as severe pain and after a long discussion was her and her family at her bedside she decided that she does not want to do any surgical intervention now and would like to have the chance of passing the stones on her own. Therefore she may be discharged home tomorrow on oral pain medications and continue straining her urine at home. And she should follow-up with her primary care physician. CUBA WU MD Oct 04, 2018 19:54
[2018-10-04] MEDS: TAMSULOSIN (SR) 0.4 MG CAP PO SCH (20:17)
[2018-10-04] MEDS: ZOLPIDEM 5 MG TAB PO PRN (23:18)
[2018-10-05] MEDS ORDERED: ZOLPIDEM 5 MG TAB PO ONE (01:46)
[2018-10-05] MEDS: traMADol 50 MG TAB PO PRN ×4 (01:51→22:14)
[2018-10-05 02:03] VITALS: BP 119/61; PULSE 74; RESP 18
[2018-10-05] MEDS: SOD CHLORIDE 0.45% 1,000 ML IV SCH ×2 (03:29→23:31)
[2018-10-05] MEDS: HYDROmorphONE 1 MG/ML SYG IV PRN ×2 (03:29→09:17)
[2018-10-05] MEDS: PANTOPRAZOLE (EC) 40 MG TAB PO SCH (05:13)
[2018-10-05 08:00] VITALS: BP 106/55; PULSE 62; RESP 18
[2018-10-05] MEDS: NA BICARBONATE 650 MG TAB PO SCH ×3 (08:16→20:50)
[2018-10-05] MEDS: POTASSIUM CHLORIDE (SR) 10 MEQ TAB PO SCH ×4 (08:16→20:50)
[2018-10-05] MEDS: CITRIC ACID/NA CITRATE 30 ML CUP PO SCH ×3 (08:16→20:49)
[2018-10-05] MEDS: ENOXAPARIN 40 MG/0.4 ML SYG SC SCH (08:17)
[2018-10-05] MEDS ORDERED: IOHEXOL 14.3 MG(I)/ML (ADULT) BTL PO ONE (12:30)
--- NOTE | 2018-10-05 12:40 | PN ---
Date/Time of Note Date/Time of Note DATE: 10/05/18 TIME: 12:27 Assessment/Plan VTE Prophylaxis Risk score (from Ns)>0 risk: 6 SCD applied (from Ns): Yes Pharmacological prophylaxis: heparin Lines/Catheters IV Catheter Type (from [facility]): Peripheral IV Urinary Cath still in place: No Assessment/Plan Assessment/Plan Assessment: Elevated lipase/amylase -Does not clinically present as pancreatitis Left lower back pain Multiple nonobstructing renal calculi Cluster of calculi in the distal right ureter without hydronephrosis or hydroureter. Bladder wall thickening- Sjogren's syndrome Renal tubular acidosis Hypokalemia Chronic anemia Hx of renal tubular acidosis Plan: CT of the abdomen with contrast IgG 4 - negative Abd us- shows normal CBD Elevated amylase can be explained possibly 2/2 to known Sjogren's disease Unclear cause of elevated lipase Will continue to monitor Patient seen in collaboration with Dr. Haider Subjective: Course reviewed with nursing staff Patient interviewed and examined All labs, imaging and other results reviewed No events overnight, denies abdominal pain, nausea or vomiting. She now c/o bilateral lower back pain. PHYSICAL EXAMINATION: GENERAL: Alert & oriented x 3, in no acute distress SKIN: No lesions, HEAD: Normocephalic, atraumatic, no tenderness. EYES: Pupils equal reactive to light no discharge. EARS/NOSE AND THROAT: Ears normal, nose normal, oropharynx normal, oral membranes well hydrated without lesions. NECK: Supple, no masses, CHEST: Inspection within normal limits. CARDIOVASCULAR: Heart: Regular rate and rhythm RESPIRATORY: Lungs clear to auscultation GASTROINTESTINAL AND LIVER: Abdomen: Soft, bilateral flank tenderness, non- distended, no hernias, no masses, no organomegaly, no ascites, no guarding, no rebound tenderness, normoactive bowel sounds. Rectal: Deferred. EXTREMITIES: No cyanosis, clubbing or edema. Result Diagram: 10/02/18 0528 10/05/18 0440 Results 24hrs Laboratory Tests Test 10/04/18 15:48 10/05/18 04:40 Potassium Level 3.2 L 3.3 L Sodium Level 142 Chloride Level 118 H Carbon Dioxide Level 18 L Anion Gap 6 Blood Urea Nitrogen 8 Creatinine 0.84 Est Glomerular Filtrat Rate mL/min > 60 Glucose Level 93 Calcium Level 8.2 L Amylase Level 193 H Lipase 881 H CC: MAGGI CASTRO ; Exam/Review of Systems Exam Vitals Vital Signs Date Temp Pulse Resp B/P (MAP) Pulse Ox O2 O2 Flow FiO2 Time Delivery Rate 10/05/18 98.8 62 18 106/55 96 08:00 (72) 10/04/18 Room Air 14:35 Intake and Output 10/04/18 10/04/18 10/05/18 1515:00 23:00 07:00 IntakeIntake Total 1090 ml 750 ml 440 ml OutputOutput Total 800 ml BalanceBalance 1090 ml -50 ml 440 ml Results Results 24hrs Laboratory Tests Test 10/04/18 15:48 10/05/18 04:40 Potassium Level 3.2 L 3.3 L Sodium Level 142 Chloride Level 118 H Carbon Dioxide Level 18 L Anion Gap 6 Blood Urea Nitrogen 8 Creatinine 0.84 Est Glomerular Filtrat Rate mL/min > 60 Glucose Level 93 Calcium Level 8.2 L Amylase Level 193 H Lipase 881 H Medications Medication Current Medications Pantoprazole (Protonix Tab) 40 mg DAILY@06 PO Last administered on 10/05/18 05:13; Admin Dose 40 MG; Start 10/01/18 at 06:00 Tramadol HCl (Ultram) 50 mg Q6H PRN PO MODERATE PAIN LEVEL 4-6 Last administer ed on 10/05/18 07:56; Admin Dose 50 MG; Start 09/30/18 at 10:00 Ceftriaxone Sodium 50 ml @ 100 mls/hr Q24H IVPB Last administered on 10/04/18 12:23; Admin Dose 100 MLS/HR; Start 10/01/18 at 13:00 Tamsulosin HCl (Flomax) 0.4 mg HS PO Last administered on 10/04/18 20:17; Admin Dose 0.4 MG; Start 10/01/18 at 21:00 Zolpidem Tartrate (Ambien) 5 mg HS PRN PO INSOMNIA Last administered on 10/04/18 23:18; Admin Dose 5 MG; Start 10/01/18 at 23:30 Enoxaparin Sodium (Lovenox) 40 mg DAILY SC Last administered on 10/05/18 08:17; Admin Dose 40 MG; Start 10/02/18 at 09:00 Metoclopramide HCl (Reglan) 10 mg TID PRN IV nausea Last administered on 10/02/18 15:46; Admin Dose 10 MG; Start 10/02/18 at 08:00 Hydromorphone HCl (Dilaudid) 1 mg Q4H PRN IV PAIN LEVEL 5-10 Last administered on 10/05/18 09:17; Admin Dose 1 MG; Start 10/02/18 at 11:00 Potassium Chloride (Klor-Con 10) 30 meq TID PO Last administered on 10/05/18 08:19; Admin Dose 30 MEQ; Start 10/02/18 at 13:00 Sodium Bicarbonate (Sodium Bicarbonate Tab) 1,300 mg TID PO Last administered on 10/05/18 08:16; Admin Dose 1,300 MG; Start 10/02/18 at 13:00 Citric Acid/ Sodium Citrate (Bicitra) 30 ml TID PO Last administered on 10/05/18 08:16; Admin Dose 30 ML; Start 10/03/18 at 13:00 Sodium Chloride 1,000 ml @ 70 mls/hr [id number] IV Last administered on 10/05/18 03:29; Admin Dose 70 MLS/HR; Start 10/04/18 at 08:30 LEIGHA SHAFFER STRATE[employer]IC ACCOUNT DIRECTOR Oct 05, 2018 12:39
[2018-10-05] MEDS ORDERED: POTASSIUM CHLORIDE (SR) 20 MEQ TAB PO STA (13:35)
--- NOTE | 2018-10-05 13:38 | PN ---
Date/Time of Note Date/Time of Note DATE: 10/05/18 TIME: 13:36 Assessment/Plan VTE Prophylaxis Risk score (from Ns)>0 risk: 6 SCD applied (from Ns): Yes Pharmacological prophylaxis: NA/contraindicated Pharm contraindication: low risk/ambulating Lines/Catheters IV [facility] Type (from [facility]): Peripheral IV Urinary Cath still in place: No Assessment/Plan Hospital Course 33 y/o with 1. Left flank pain likely due to . Nephrolithiasis with calcification in the d istal ureter. vs Pancreatitis however the abdominal x-ray and scan scan shows stone in the distal right ureter but the pain is present on the left flank. Patient also has elevated lipase but per GI clinically does not look patient has evidence of pancreatitis 2. The patient has metabolic acidosis. 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 chronic hypokalemia. 4. Dehydration. 5. Hyperchloremic metabolic acidosis. 6. Elevated lipase and amylase Plan - now with rt flank pain Abdominal Xray for renal calculus which shows Similar position multiple stones in the distal right ureter , spoke to Dr Alfaro> repeat KUB done,Dr Alfaro spoke to patient as there are chances of recurrence, it was decided not to go for intervention - Abd U/S with Contracted gallbladder. No obvious gallstones or sludge.2. No biliary duct dilatation. - change iv dilaudid to po norco/ add ibuprofen - kcl - CT A+P with contrast per GI for lipase - fu GI recs/urology recs -cw KCL 30 tid - cw sodium bicarb 1300 tid - cw bictra 30 tid - cw 1/2 NS - ucxneg so far - GI/DVT prophylaxsis Result Diagram: 10/02/18 0528 10/05/18 0440 Results 24hrs Laboratory Tests Test 10/04/18 15:48 10/05/18 04:40 Potassium Level 3.2 L 3.3 L Sodium Level 142 Chloride Level 118 H Carbon Dioxide Level 18 L Anion Gap 6 Blood Urea Nitrogen 8 Creatinine 0.84 Est Glomerular Filtrat Rate mL/min > 60 Glucose Level 93 Calcium Level 8.2 L Amylase Level 193 H Lipase 881 H Subjective 24 Hr Interval Summary Free Text/Dictation Still having flank pain lipase elevated Exam/Review of Systems Exam Vitals Vital Signs Date Temp Pulse Resp B/P (MAP) Pulse Ox O2 O2 Flow FiO2 Time Delivery Rate 10/05/18 98.8 62 18 106/55 96 08:00 (72) 10/04/18 Room Air 14:35 Intake and Output 10/04/18 10/04/18 10/05/18 1414:59 22:59 06:59 IntakeIntake Total 1090 ml 750 ml 440 ml OutputOutput Total 800 ml BalanceBalance 1090 ml -50 ml 440 ml Exam HEENT: Head is atraumatic, normocephalic. Pupils are equal, reactive. NECK: Supple. No JVD. LUNGS: Clear. CARDIOVASCULAR: S1, S2 is normal. ABDOMEN:TTP Left flank EXTREMITIES: No cyanosis, clubbing, edema. CENTRAL NERVOUS SYSTEM: The patient is awake, alert. No focal deficit. Results Results 24hrs Laboratory Tests Test 10/04/18 15:48 10/05/18 04:40 Potassium Level 3.2 L 3.3 L Sodium Level 142 Chloride Level 118 H Carbon Dioxide Level 18 L Anion Gap 6 Blood Urea Nitrogen 8 Creatinine 0.84 Est Glomerular Filtrat Rate mL/min > 60 Glucose Level 93 Calcium Level 8.2 L Amylase Level 193 H Lipase 881 H Medications Medication Current Medications Pantoprazole (Protonix Tab) 40 mg DAILY@06 PO Last administered on 10/05/18 05:13; Admin Dose 40 MG; Start 10/01/18 at 06:00 Tramadol HCl (Ultram) 50 mg Q6H PRN PO MODERATE PAIN LEVEL 4-6 Last administered on 10/05/18 07:56; Admin Dose 50 MG; Start 09/30/18 at 10:00 Tamsulosin HCl (Flomax) 0.4 mg HS PO Last administered on 10/04/18 20:17; Admin Dose 0.4 MG; Start 10/01/18 at 21:00 Zolpidem Tartrate (Ambien) 5 mg HS PRN PO INSOMNIA Last administered on 10/04/18 23:18; Admin Dose 5 MG; Start 10/01/18 at 23:30 Enoxaparin Sodium (Lovenox) 40 mg DAILY SC Last administered on 10/05/18 08:17; Admin Dose 40 MG; Start 10/02/18 at 09:00 Metoclopramide HCl (Reglan) 10 mg TID PRN IV nausea Last administered on 4/2/19at 15:46; Admin Dose 10 MG; Start 10/02/18 at 08:00 Potassium Chloride (Klor-Con 10) 30 meq TID PO Last administered on 10/05/18 08:19; Admin Dose 30 MEQ; Start 10/02/18 at 13:00 Sodium Bicarbonate (Sodium Bicarbonate Tab) 1,300 mg TID PO Last administered on 10/05/18 08:16; Admin Dose 1,300 MG; Start 10/02/18 at 13:00 Citric Acid/ Sodium Citrate (Bicitra) 30 ml TID PO Last administered on 10/05/18 08:16; Admin Dose 30 ML; Start 10/03/18 at 13:00 Sodium Chloride 1,000 ml @ 70 mls/hr [id number] IV Last administered on 10/05/18 03:29; Admin Dose 70 MLS/HR; Start 10/04/18 at 08:30 LAVERNE COBB MD Oct 05, 2018 13:38
[2018-10-05] MEDS: HYDROCODONE/APAP (5/325) TAB PO PRN ×2 (13:51→18:20)
[2018-10-05 14:00] VITALS: BP 101/62; PULSE 75; RESP 20
[2018-10-05] MEDS ORDERED: IBUPROFEN 400 MG TAB PO PRN (14:00)
[2018-10-05] MEDS ORDERED: SOD CHLORIDE 0.9% 100 ML ONE (14:25)
[2018-10-05] MEDS ORDERED: IOHEXOL 300MG/ML 150 ML BTL ONE (14:26)
[2018-10-05] MEDS ORDERED: HYDROmorphONE 0.5 MG/0.5 ML SYG IV STA (20:26)
[2018-10-05 20:29] VITALS: BP 98/56; PULSE 65; RESP 18
[2018-10-05] MEDS: TAMSULOSIN (SR) 0.4 MG CAP PO SCH (20:50)
--- NOTE | 2018-10-05 21:24 | CONS ---
Consult Date/Type/Reason Admit Date/Time Sep 30, 2018 at 02:57 Initial Consult Date 10/01/18 Type of Consultation: Urology Reason for Consultation Distal right ureteral stones and bilateral kidney stones and mid left ureteral stone noted on the KUB on 10/04/2018. Requesting Provider: LAVERNE COBB MD Date/Time of Note DATE: 10/05/18 TIME: 21:21 Subjective Patient has pain and today she did have hematuria. She also has pressure to ur inate and pelvic pressure. Objective Vitals Vital Signs Date Temp Pulse Resp B/P (MAP) Pulse Ox O2 O2 Flow FiO2 Time Delivery Rate 10/05/18 98.1 65 18 98/56 (70) 98 20:29 10/04/18 Room Air 14:35 Intake and Output 10/04/18 10/04/18 10/05/18 1515:00 23:00 07:00 IntakeIntake Total 1090 ml 750 ml 440 ml OutputOutput Total 800 ml BalanceBalance 1090 ml -50 ml 440 ml Exam Bilateral flank tenderness. Results/Medications Result Diagram: 10/02/18 0528 10/05/18 0440 Results 24 hrs Laboratory Tests Test 10/05/18 04:40 Sodium Level 142 Potassium Level 3.3 L Chloride Level 118 H Carbon Dioxide Level 18 L Anion Gap 6 Blood Urea Nitrogen 8 Creatinine 0.84 Est Glomerular Filtrat Rate mL/min > 60 Glucose Level 93 Calcium Level 8.2 L Amylase Level 193 H Lipase 881 H Home Meds Active Scripts Ferrous Sulfate (Ferrous Sulfate) 325 Mg Tablet.dr, 325 MG PO BID for 30 Days Prov:AMY HERNANDEZ 12/29/17 Reported Medications Multivitamins* (Theragran*) 1 Tab Tab, 1 TAB PO DAILY, TAB 04/06/18 Biotin (Biotin) 5,000 Mcg Tab.rapdis, 5000 MCG PO 04/06/18 Potassium Chloride* (Potassium Chloride*) 20 Meq Tablet.er, 20 MEQ PO TID, TAB.SA 12/19/17 Medications Current Medications Pantoprazole (Protonix Tab) 40 mg DAILY@06 PO Last administered on 10/05/18at 05:13; Admin Dose 40 MG; Start 10/01/18 at 06:00 Tramadol HCl (Ultram) 50 mg Q6H PRN PO MODERATE PAIN LEVEL 4-6 Last administered on 10/05/18 16:20; Admin Dose 50 MG; Start 09/30/18 at 10:00 Tamsulosin HCl (Flomax) 0.4 mg HS PO Last administered on 10/05/18 20:50; Admin Dose 0.4 MG; Start 10/01/18 at 21:00 Zolpidem Tartrate (Ambien) 5 mg HS PRN PO INSOMNIA Last administered on 10/04/18 23:18; Admin Dose 5 MG; Start 10/01/18 at 23:30 Enoxaparin Sodium (Lovenox) 40 mg DAILY SC Last administered on 10/05/18 08:17; Admin Dose 40 MG; Start 10/02/18 at 09:00 Metoclopramide HCl (Reglan) 10 mg TID PRN IV nausea Last administered on 10/02/18 15:46; Admin Dose 10 MG; Start 10/02/18 at 08:00 Potassium Chloride (Klor-Con 10) 30 meq TID PO Last administered on 10/05/18 20:50; Admin Dose 30 MEQ; Start 10/02/18 at 13:00 Sodium Bicarbonate (Sodium Bicarbonate Tab) 1,300 mg TID PO Last administered on 10/05/18 20:50; Admin Dose 1,300 MG; Start 10/02/18 at 13:00 Citric Acid/ Sodium Citrate (Bicitra) 30 ml TID PO Last administered on 10/05/18 20:49; Admin Dose 30 ML; Start 10/03/18 at 13:00 Sodium Chloride 1,000 ml @ 70 mls/hr [id number] IV Last administered on 10/05/18 03:29; Admin Dose 70 MLS/HR; Start 10/04/18 at 08:30 Acetaminophen/ Hydrocodone Bitart ([place] (5/325)) 1 tab Q4H PRN PO MODERATE PAIN LEVEL 4-6 Last administered on 10/05/18 18:20; Admin Dose 1 TAB; Start 10/05/18 at 14:00 Ibuprofen (Motrin) 400 mg Q6H PRN PO MILD PAIN(1-3) OR TEMP>38C; Start 10/05/18 at 14:00 Assessment/Plan Hospital Course (Demo Recall) 33-year-old female with known history of renal tubular acidosis, nephrolithiasis and hypokalemia, presented to the emergency room complaining of left flank pain with nausea and feeling fatigued. She underwent a CT scan of the abdomen and pelvis and that showed: 1. Numerous bilateral nonobstructing renal calculi are again seen now with a li near cluster of calculi in the distal right ureter without hydronephrosis or hydroureter. 2. Mild focal anterior bladder wall thickening is now seen measuring approximately 0.6 cm. Focal inflammatory process may be considered as well as neoplasm. Consider follow-up bladder ultrasound or CT to assess stability. Consider cystoscopy or further urologic evaluation as warranted. The patient is now complaining of bilateral flank pain. A KUB done today shows the stones in the distal right ureter to be unchanged. However one could see a calcification over the sacroiliac joint area that was not there before and that most likely represent a stone that came from the left kidney and to the left ureter and that may be causing her left flank pain. The patient had gross hematuria today with the pain. The hematuria most likely related to the stones either in the distal right ureter or the stone in the mid left ureter. Plan is to repeat the KUB in the morning and see if the stones have moved. Con tinue to strain the urine and the tamsulosin and encourage p.o. fluids CUBA WU MD Oct 05, 2018 21:24
[2018-10-05] MEDS: ZOLPIDEM 5 MG TAB PO PRN (23:28)
[2018-10-06 02:00] VITALS: BP 100/59; PULSE 78; RESP 20
[2018-10-06] MEDS: HYDROCODONE/APAP (5/325) TAB PO PRN ×5 (02:10→23:08)
[2018-10-06] MEDS: PANTOPRAZOLE (EC) 40 MG TAB PO SCH (05:29)
[2018-10-06] MEDS: traMADol 50 MG TAB PO PRN ×3 (05:29→20:04)
[2018-10-06 07:35] VITALS: BP 116/64; PULSE 69; RESP 18
[2018-10-06] MEDS: CITRIC ACID/NA CITRATE 30 ML CUP PO SCH ×3 (08:19→20:01)
[2018-10-06] MEDS: POTASSIUM CHLORIDE (SR) 10 MEQ TAB PO SCH ×4 (08:19→20:02)
[2018-10-06] MEDS: NA BICARBONATE 650 MG TAB PO SCH ×3 (08:19→20:02)
[2018-10-06] MEDS: ENOXAPARIN 40 MG/0.4 ML SYG SC SCH (08:20)
--- NOTE | 2018-10-06 14:18 | PN ---
Date/Time of Note Date/Time of Note DATE: 10/06/18 TIME: 14:15 Assessment/Plan VTE Prophylaxis Risk score (from Ns)>0 risk: 6 SCD applied (from Ns): Yes Pharmacological prophylaxis: heparin Lines/Catheters IV C[facility]ter Type (from [facility]): Peripheral IV Urinary Cath still in place: No Assessment/Plan Assessment/Plan Assessment: Elevated lipase/amylase -Does not clinically present as pancreatitis Left lower back pain Multiple nonobstructing renal calculi Cluster of calculi in the distal right ureter without hydronephrosis or hydroureter. Bladder wall thickening- Sjogren's syndrome Renal tubular acidosis Hypokalemia Chronic anemia Hx of renal tubular acidosis Imaging is negative for pancreatitis Plan: Downgrade to clear liquid diet IgG 4 - negative Abd us- shows normal CBD Elevated amylase can be explained possibly 2/2 to known Sjogren's disease Will continue to monitor Patient seen in collaboration with Dr. Haider Subjective: Course reviewed with nursing staff Patient interviewed and examined All labs, imaging and other results reviewed Patient is doing poorly. She is complaining of hematuria and bilateral flank pain. No evidence of pancreatitis on CT however patient developed upper abdominal pain 6 out of 10. We will downgrade the diet to clear liquid. Check lipase/amylase with morning labs. Continue observation. PHYSICAL EXAMINATION: GENERAL: Alert & oriented x 3, in no acute distress SKIN: No lesions, HEAD: Normocephalic, atraumatic, no tenderness. EYES: Pupils equal reactive to light no discharge. EARS/NOSE AND THROAT: Ears normal, nose normal, oropharynx normal, oral membranes well hydrated without lesions. NECK: Supple, no masses, CHEST: Inspection within normal limits. CARDIOVASCULAR: Heart: Regular rate and rhythm RESPIRATORY: Lungs clear to auscultation GASTROINTESTINAL AND LIVER: Abdomen: Soft, bilateral flank tenderness, upper abd ominal tenderness 6 out of 10, Non-distended, no hernias, no masses, no organomegaly, no ascites, no guarding, no rebound tenderness, normoactive bowel sounds. Rectal: Deferred. EXTREMITIES: No cyanosis, clubbing or edema. Result Diagram: 10/02/18 0528 10/05/18 0440 Exam/Review of Systems Exam Vitals Vital Signs Date Temp Pulse Resp B/P (MAP) Pulse Ox O2 O2 Flow FiO2 Time Delivery Rate 10/06/18 98.7 69 18 116/64 100 Room Air 07:35 (81) Intake and Output 10/05/18 10/05/18 10/06/18 1515:00 23:00 07:00 IntakeIntake Total 990 ml 860 ml 660 ml OutputOutput Total 1700 ml 900 ml BalanceBalance -710 ml -40 ml 660 ml Medications Medication Current Medications Pantoprazole (Protonix Tab) 40 mg DAILY@06 PO Last administered on 10/06/18 05:29; Admin Dose 40 MG; Start 10/01/18 at 06:00 Tramadol HCl (Ultram) 50 mg Q6H PRN PO MODERATE PAIN LEVEL 4-6 Last administered on 10/06/18 11:49; Admin Dose 50 MG; Start 09/30/18 at 10:00 Tamsulosin HCl (Flomax) 0.4 mg HS PO Last administered on 10/05/18 20:50; Admin Dose 0.4 MG; Start 10/01/18 at 21:00 Zolpidem Tartrate (Ambien) 5 mg HS PRN PO INSOMNIA Last administered on 10/05/18 23:28; Admin Dose 5 MG; Start 10/01/18 at 23:30 Enoxaparin Sodium (Lovenox) 40 mg DAILY SC Last administered on 10/06/18 08:20; Admin Dose 40 MG; Start 10/02/18 at 09:00 Metoclopramide HCl (Reglan) 10 mg TID PRN IV nausea Last administered on 10/02/18 15:46; Admin Dose 10 MG; Start 10/02/18 at 08:00 Potassium Chloride (Klor-Con 10) 30 meq TID PO Last administered on 10/06/18 12:54; Admin Dose 30 MEQ; Start 10/02/18 at 13:00 Sodium Bicarbonate (Sodium Bicarbonate Tab) 1,300 mg TID PO Last administered on 10/06/18 12:54; Admin Dose 1,300 MG; Start 10/02/18 at 13:00 Citric Acid/ Sodium Citrate (Bicitra) 30 ml TID PO Last administered on 10/06/18 12:54; Admin Dose 30 ML; Start 10/03/18 at 13:00 Sodium Chloride 1,000 ml @ 70 mls/hr [id number] IV Last administered on 10/05/18 23:31; Admin Dose 70 MLS/HR; Start 10/04/18 at 08:30 Acetaminophen/ Hydrocodone Bitart ([place] (5/325)) 1 tab Q4H PRN PO MODERATE PAIN LEVEL 4-6 Last administered on 10/06/18at 12:53; Admin Dose 1 TAB; Start 10/05/18 at 14:00 Ibuprofen (Motrin) 400 mg Q6H PRN PO MILD PAIN(1-3) OR TEMP>38C; Start 10/05/18 at 14:00 LEIGHA SHAFFER NP Oct 06, 2018 14:18
[2018-10-06 14:30] VITALS: BP 109/55; PULSE 67; RESP 16
--- NOTE | 2018-10-06 15:06 | CONS ---
Consult Date/Type/Reason Admit Date/Time Sep 30, 2018 at 02:57 Initial Consult Date 10/01/18 Type of Consultation: Urology Reason for Consultation Bilateral kidney stones, history of renal tubular acidosis and distal right ureteral stones Requesting Provider: LAVERNE COBB MD Date/Time of Note DATE: 10/06/18 TIME: 15:00 Subjective Patient is complaining of bleeding from her vagina. She states that she just had her periods 2 weeks ago. Objective Vitals Vital Signs Date Temp Pulse Resp B/P (MAP) Pulse Ox O2 O2 Flow FiO2 Time Delivery Rate 10/06/18 98.4 67 16 109/55 100 High Flow 14:30 (73) Intake and Output 10/05/18 10/05/18 10/06/18 1414:59 22:59 06:59 IntakeIntake Total 990 ml 860 ml 660 ml OutputOutput Total 1700 ml 900 ml BalanceBalance -710 ml -40 ml 660 ml Exam She had a KUB today and when that is compared to the one from 2 days ago the stone that she had over the sacroiliac joint area on the left side is now in the bladder. The distal right ureteral stones are still in the same location. Because of the vaginal bleed I thought initially she was bleeding because she passed the stone but I decided to do a pelvic exam on her again and she does have vaginal bleed consistent with menstrual periods. Results/Medications Result Diagram: 10/02/1852710/05/180 Home Meds Active Scripts Ferrous Sulfate (Ferrous Sulfate) 325 Mg Tablet., 325 MG PO BID for 30 Days Prov:AMY HERNANDEZ 12/29/17 Reported Medications Multivitamins* (Theragran*) 1 Tab Tab, 1 TAB PO DAILY, TAB 04/06/18 Biotin (Biotin) 5,000 Mcg Tab.rapdis, 5000 MCG PO 04/06/18 Potassium Chloride* (Potassium Chloride*) 20 Meq Tablet.er, 20 MEQ PO TID, TAB.SA 12/19/17 Medications Current Medications Pantoprazole (Protonix Tab) 40 mg DAILY@06 PO Last administered on 10/06/18at 05:29; Admin Dose 40 MG; Start 10/01/18 at 06:00 Tramadol HCl (Ultram) 50 mg Q6H PRN PO MODERATE PAIN LEVEL 4-6 Last admi nistered on 10/06/18 11:49; Admin Dose 50 MG; Start 09/30/18 at 10:00 Tamsulosin HCl (Flomax) 0.4 mg HS PO Last administered on 10/05/18 20:50; Admin Dose 0.4 MG; Start 10/01/18 at 21:00 Zolpidem Tartrate (Ambien) 5 mg HS PRN PO INSOMNIA Last administered on 10/05/18 23:28; Admin Dose 5 MG; Start 10/01/18 at 23:30 Enoxaparin Sodium (Lovenox) 40 mg DAILY SC Last administered on 10/06/18 08:20; Admin Dose 40 MG; Start 10/02/18 at 09:00 Metoclopramide HCl (Reglan) 10 mg TID PRN IV nausea Last administered on 10/02/18 15:46; Admin Dose 10 MG; Start 10/02/18 at 08:00 Sodium Bicarbonate (Sodium Bicarbonate Tab) 1,300 mg TID PO Last administered on 10/06/18 12:54; Admin Dose 1,300 MG; Start 10/02/18 at 13:00 Citric Acid/ Sodium Citrate (Bicitra) 30 ml TID PO Last administered on 10/06/18 12:54; Admin Dose 30 ML; Start 10/03/18 at 13:00 Sodium Chloride 1,000 ml @ 70 mls/hr [id number] IV Last administered on 10/05/18 23:31; Admin Dose 70 MLS/HR; Start 10/04/18 at 08:30 Acetaminophen/ Hydrocodone Bitart ([place] (5/325)) 1 tab Q4H PRN PO MODERATE PAIN LEVEL 4-6 Last administered on 10/06/18 12:53; Admin Dose 1 TAB; Start 10/05/18 at 14:00 Ibuprofen (Motrin) 400 mg Q6H PRN PO MILD PAIN(1-3) OR TEMP>38C; Start 10/05/18 at 14:00 Potassium Chloride (Klor-Con 10) 30 meq QID PO ; Start 10/06/18 at 17:00 Assessment/Plan Hospital Course (Demo Recall) 33-year-old female with known history of renal tubular acidosis, nephrolithiasis and hypokalemia, presented to the emergency room complaining of left flank pain with nausea and feeling fatigued. She underwent a CT scan of the abdomen and pelvis and that showed: 1. Numerous bilateral nonobstructing renal calculi are again seen now with a linear cluster of calculi in the distal right ureter without hydronephrosis or hydroureter. 2. Mild focal anterior bladder wall thickening is now seen measuring ap proximately 0.6 cm. Focal inflammatory process may be considered as well as neoplasm. Consider follow-up bladder ultrasound or CT to assess stability. Consider cystoscopy or further urologic evaluation as warranted. Patient is complaining of bleeding from her vagina. She states that she just had her periods 2 weeks ago. She had a KUB today and when that is compared to the one from 2 days ago the stone that she had over the sacroiliac joint area on the left side is now in the bladder. The distal right ureteral stones are still in the same location. Because of the vaginal bleed I thought initially she was bleeding because she passed the stone but I decided to do a pelvic exam on her again and she does have vaginal bleed consistent with menstrual periods. As discussed with the patient 3 days ago she wanted to try to pass the stones on her own and indeed she did pass the stone from the left ureter but the stones from the right ureter are still in the same location. Urologically we will continue to observe and encourage p.o. fluids and continue the present treatment CUBA WU MD Oct 06, 2018 15:05
--- NOTE | 2018-10-06 16:29 | PN ---
Date/Time of Note Date/Time of Note DATE: 10/06/18 TIME: 16:27 Assessment/Plan VTE Prophylaxis Risk score (from Ns)>0 risk: 6 SCD applied (from Ns): Yes SCD contraindicated: other Pharmacological prophylaxis: other Lines/Catheters [facility] ([facility] Peripheral IV Urinary Cath still in place: No Assessment/Plan Hospital Course 1. Left flank pain likely due to . Nephrolithiasis with calcification in the distal ureter. vs Pancreatitis however the abdominal x-ray and scan scan shows stone in the distal right ureter but the pain is present on the left flank. Patient also has elevated lipase but per GI clinically does not look patient has evidence of pancreatitis 2. The patient has metabolic acidosis. 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 chronic hypokalemia. 4. Dehydration. 5. Hyperchloremic metabolic acidosis. 6. Elevated lipase and amylase plan pain meds low fat diet Result Diagram: 10/02/18 0528 10/05/18 0440 Subjective 24 Hr Interval Summary ENT: no complaints Respiratory: no complaints Cardiovascular: no complaints Gastrointestinal: pain (+) Exam/Review of Systems Exam Vitals Vital Signs Date Temp Pulse Resp B/P (MAP) Pulse Ox O2 O2 Flow FiO2 Time Delivery Rate 10/06/18 98.4 67 16 109/55 100 High Flow 14:30 (73) Intake and Output 10/05/18 10/05/18 10/06/18 1515:00 23:00 07:00 IntakeIntake Total 990 ml 860 ml 660 ml OutputOutput Total 1700 ml 900 ml BalanceBalance -710 ml -40 ml 660 ml Neck: supple Respiratory: clear to auscultation Cardiovascular: regular rate and rhythm Gastrointestinal: soft Musculoskeletal: nl extremities to inspection Extremities: normal pulses Medications Medication Current Medications Pantoprazole (Protonix Tab) 40 mg DAILY@06 PO Last administered on 10/06/18at 05:29; Admin Dose 40 MG; Start 10/01/18 at 06:00 Tramadol HCl (Ultram) 50 mg Q6H PRN PO MODERATE PAIN LEVEL 4-6 Last administered on 10/06/18at 11:49; Admin Dose 50 MG; Start 09/30/18 at 10:00 Tamsulosin HCl (Flomax) 0.4 mg HS PO Last administered on 10/05/18at 20:50; Admin Dose 0.4 MG; Start 10/01/18 at 21:00 Zolpidem Tartrate (Ambien) 5 mg HS PRN PO INSOMNIA Last administered on 10/05/18 23:28; Admin Dose 5 MG; Start 10/01/18 at 23:30 Enoxaparin Sodium (Lovenox) 40 mg DAILY SC Last administered on 10/06/18 08:20; Admin Dose 40 MG; Start 10/02/18 at 09:00 Metoclopramide HCl (Reglan) 10 mg TID PRN IV nausea Last administered on 10/02/18 15:46; Admin Dose 10 MG; Start 10/02/18 at 08:00 Sodium Bicarbonate (Sodium Bicarbonate Tab) 1,300 mg TID PO Last administered on 10/06/18 12:54; Admin Dose 1,300 MG; Start 10/02/18 at 13:00 Citric Acid/ Sodium Citrate (Bicitra) 30 ml TID PO Last administered on 10/06/18 12:54; Admin Dose 30 ML; Start 10/03/18 at 13:00 Sodium Chloride 1,000 ml @ 70 mls/hr [id number] IV Last administered on 10/05/18 23:31; Admin Dose 70 MLS/HR; Start 10/04/18 at 08:30 Acetaminophen/ Hydrocodone Bitart ([place] (5/325)) 1 tab Q4H PRN PO MODERATE PAIN LEVEL 4-6 Last administered on 10/06/18 12:53; Admin Dose 1 TAB; Start 10/05/18 at 14:00 Ibuprofen (Motrin) 400 mg Q6H PRN PO MILD PAIN(1-3) OR TEMP>38C; Start 10/05/18 at 14:00 Potassium Chloride (Klor-Con 10) 30 meq QID PO ; Start 10/06/18 at 17:00 AYAD GIBBONS MD Oct 06, 2018 16:29
[2018-10-06] MEDS: SOD CHLORIDE 0.45% 1,000 ML IV SCH ×2 (17:42→22:17)
[2018-10-06 20:00] VITALS: BP 107/59; PULSE 71; RESP 18
[2018-10-06] MEDS: TAMSULOSIN (SR) 0.4 MG CAP PO SCH (20:02)
[2018-10-06] MEDS: ZOLPIDEM 5 MG TAB PO PRN (23:08)
[2018-10-07 02:00] VITALS: BP 105/57; PULSE 72; RESP 18
[2018-10-07] MEDS: traMADol 50 MG TAB PO PRN ×4 (02:29→20:15)
[2018-10-07] MEDS: PANTOPRAZOLE (EC) 40 MG TAB PO SCH (05:19)
[2018-10-07] MEDS: HYDROCODONE/APAP (5/325) TAB PO PRN ×4 (05:20→23:17)
[2018-10-07] MEDS: POTASSIUM CHLORIDE (SR) 10 MEQ TAB PO SCH ×4 (08:04→20:15)
[2018-10-07] MEDS: CITRIC ACID/NA CITRATE 30 ML CUP PO SCH ×3 (08:05→20:14)
[2018-10-07] MEDS: NA BICARBONATE 650 MG TAB PO SCH ×3 (08:05→20:14)
[2018-10-07] MEDS: ENOXAPARIN 40 MG/0.4 ML SYG SC SCH (08:11)
[2018-10-07 08:15] VITALS: BP 113/55; PULSE 64; RESP 17
--- NOTE | 2018-10-07 11:03 | PN ---
Date/Time of Note Date/Time of Note DATE: 10/07/18 TIME: 11:00 Assessment/Plan VTE Prophylaxis Risk score (from Ns)>0 risk: 6 SCD applied (from Ns): Yes Pharmacological prophylaxis: NA/contraindicated Pharm contraindication: bleeding Lines/Catheters [facility] Peripheral IV Urinary Cath still in place: No Assessment/Plan Assessment/Plan Assessment: Elevated lipase/amylase -Does not clinically present as pancreatitis Left lower back pain Multiple nonobstructing renal calculi Cluster of calculi in the distal right ureter without hydronephrosis or hydroureter. Bladder wall thickening- Sjogren's syndrome Renal tubular acidosis Hypokalemia Chronic anemia Hx of renal tubular acidosis Imaging is negative for pancreatitis Plan: Low-fat diet -if tolerated may be discharged home IgG 4 - negative Abd us- shows normal CBD Elevated amylase can be explained possibly 2/2 to known Sjogren's disease Will continue to monitor Patient seen in collaboration with Dr. Haider Subjective: Course reviewed with nursing staff Patient interviewed and examined All labs, imaging and other results reviewed Patient is doing better today. She denies abdominal pain, epigastric pain elicited only on palpation. Lipase is down to 368. Will advance diet to low- fat. If patient is able to tolerate diet she can be discharged home. PHYSICAL EXAMINATION: GENERAL: Alert & oriented x 3, in no acute distress SKIN: No lesions, HEAD: Normocephalic, atraumatic, no tenderness. EYES: Pupils equal reactive to light no discharge. EARS/NOSE AND THROAT: Ears normal, nose normal, oropharynx normal, oral membranes well hydrated without lesions. NECK: Supple, no masses, CHEST: Inspection within normal limits. CARDIOVASCULAR: Heart: Regular rate and rhythm RESPIRATORY: Lungs clear to auscultation GASTROINTESTINAL AND LIVER: Abdomen: Soft, right flank tenderness, epigastric pain on palpation, Non-distended, no hernias, no masses, no organomegaly, no ascites, no guarding, no rebound tenderness, normoactive bowel sounds. Rectal: Deferred. EXTREMITIES: No cyanosis, clubbing or edema. Result Diagram: 10/07/18 0447 10/07/187 Results 24hrs Laboratory Tests Test 10/07/18 04:47 White Blood Count 3.7 #L Red Blood Count 2.75 #L Hemoglobin 7.6 #L Hematocrit 24.9 #L Mean Corpuscular Volume 90.5 Mean Corpuscular Hemoglobin 27.6 L Mean Corpuscular Hemoglobin Concent 30.5 L Red Cell Distribution Width 17.4 H Platelet Count 188 # Mean Platelet Volume 11.0 H Immature Granulocytes % 0.500 H Neutrophils % 54.6 Lymphocytes % 32.3 Monocytes % 7.9 Eosinophils % 4.4 Basophils % 0.3 Nucleated Red Blood Cells % 0.0 Immature Granulocytes # 0.020 Neutrophils # 2.0 Lymphocytes # 1.2 Monocytes # 0.3 Eosinophils # 0.2 Basophils # 0.0 Nucleated Red Blood Cells # 0.0 Sodium Level 141 Potassium Level 3.8 Chloride Level 110 Carbon Dioxide Level 24 Anion Gap 7 Blood Urea Nitrogen 8 Creatinine 0.87 Est Glomerular Filtrat Rate mL/min > 60 Glucose Level 99 Calcium Level 8.3 L Magnesium Level 1.8 Total Bilirubin 0.1 L Direct Bilirubin 0.00 Indirect Bilirubin 0.1 Aspartate Amino Transf (AST/SGOT) 56 H Alanine Aminotransferase (ALT/SGPT) 28 Alkaline Phosphatase 85 Total Protein 5.6 L Albumin 2.8 L Globulin 2.80 Albumin/Globulin Ratio 1.00 Amylase Level 140 H Lipase 368 H CC: KAYLIN HAIDER MD ; Exam/Review of Systems Exam Vitals Vital Signs Date Temp Pulse Resp B/P (MAP) Pulse Ox O2 O2 Flow FiO2 Time Delivery Rate 10/07/18 98.4 64 17 113/55 100 Room Air 08:15 (74) Intake and Output 10/06/18 10/06/18 10/07/18 1515:00 23:00 07:00 IntakeIntake Total 600 ml 880 ml 970 ml OutputOutput Total 2000 ml BalanceBalance 600 ml 880 ml -1030 ml Results Results 24hrs Laboratory Tests Test 10/07/18 04:47 White Blood Count 3.7 #L Red Blood Count 2.75 #L Hemoglobin 7.6 #L Hematocrit 24.9 #L Mean Corpuscular Volume 90.5 Mean Corpuscular Hemoglobin 27.6 L Mean Corpuscular Hemoglobin Concent 30.5 L Red Cell Distribution Width 17.4 H Platelet Count 188 # Mean Platelet Volume 11.0 H Immature Granulocytes % 0.500 H Neutrophils % 54.6 Lymphocytes % 32.3 Monocytes % 7.9 Eosinophils % 4.4 Basophils % 0.3 Nucleated Red Blood Cells % 0.0 Immature Granulocytes # 0.020 Neutrophils # 2.0 Lymphocytes # 1.2 Monocytes # 0.3 Eosinophils # 0.2 Basophils # 0.0 Nucleated Red Blood Cells # 0.0 Sodium Level 141 Potassium Level 3.8 Chloride Level 110 Carbon Dioxide Level 24 Anion Gap 7 Blood Urea Nitrogen 8 Creatinine 0.87 Est Glomerular Filtrat Rate mL/min > 60 Glucose Level 99 Calcium Level 8.3 L Magnesium Level 1.8 Total Bilirubin 0.1 L Direct Bilirubin 0.00 Indirect Bilirubin 0.1 Aspartate Amino Transf (AST/SGOT) 56 H Alanine Aminotransferase (ALT/SGPT) 28 Alkaline Phosphatase 85 Total Protein 5.6 L Albumin 2.8 L Globulin 2.80 Albumin/Globulin Ratio 1.00 Amylase Level 140 H Lipase 368 H Medications Medication Current Medications Pantoprazole (Protonix Tab) 40 mg DAILY@06 PO Last administered on 10/07/18 05:19; Admin Dose 40 MG; Start 10/01/18 at 06:00 Tramadol HCl (Ultram) 50 mg Q6H PRN PO MODERATE PAIN LEVEL 4-6 Last administered on 10/07/18 08:05; Admin Dose 50 MG; Start 09/30/18 at 10:00 Tamsulosin HCl (Flomax) 0.4 mg HS PO Last administered on 10/06/18 20:02; Admin Dose 0.4 MG; Start 10/01/18 at 21:00 Zolpidem Tartrate (Ambien) 5 mg HS PRN PO INSOMNIA Last administered on 10/06/18 23:08; Admin Dose 5 MG; Start 10/01/18 at 23:30 Enoxaparin Sodium (Lovenox) 40 mg DAILY SC Last administered on 10/07/18 08:11; Admin Dose 40 MG; Start 10/02/18 at 09:00 Metoclopramide HCl (Reglan) 10 mg TID PRN IV nausea Last administered on 15:46; Admin Dose 10 MG; Start 10/02/18 at 08:00 Sodium Bicarbonate (Sodium Bicarbonate Tab) 1,300 mg TID PO Last administered on 10/07/18 08:05; Admin Dose 1,300 MG; Start 10/02/18 at 13:00 Citric Acid/ Sodium Citrate (Bicitra) 30 ml TID PO Last administered on 4/7/19at 08:05; Admin Dose 30 ML; Start 10/03/18 at 13:00 Sodium Chloride 1,000 ml @ 70 mls/hr [id number] IV Last administered on 10/06/18at 22:17; Admin Dose 70 MLS/HR; Start 10/04/18 at 08:30 Acetaminophen/ Hydrocodone Bitart ([place] (5/325)) 1 tab Q4H PRN PO MODERATE PAIN LEVEL 4-6 Last administered on 10/07/18at 10:36; Admin Dose 1 TAB; Start 10/05/18 at 14:00 Ibuprofen (Motrin) 400 mg Q6H PRN PO MILD PAIN(1-3) OR TEMP>38C; Start 10/05/18 at 14:00 Potassium Chloride (Klor-Con 10) 30 meq QID PO Last administered on 10/07/18at 08:04; Admin Dose 30 MEQ; Start 10/06/18 at 17:00 LEIGHA SHAFFER NP Oct 07, 2018 11:03
[2018-10-07] MEDS: SOD CHLORIDE 0.45% 1,000 ML IV SCH (14:08)
[2018-10-07 14:24] VITALS: BP 114/59; PULSE 63; RESP 17
--- NOTE | 2018-10-07 14:33 | PN ---
Date/Time of Note Date/Time of Note DATE: 10/07/18 TIME: 14:31 Assessment/Plan VTE Prophylaxis Risk score (from Ns)>0 risk: 6 SCD applied (from [facility] [place]): Yes SCD contraindicated: other Pharmacological prophylaxis: other Pharm contraindication: other Lines/Catheters IV C[facility]ter Type ([facility]): Peripheral IV Urinary Cath still in place: No Assessment/Plan Hospital Course 1. Left flank pain likely due to . Nephrolithiasis with calcification in the distal ureter. 2. The patient has metabolic acidosis. 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 chronic hypokalemia. 4. Dehydration. 5. Hyperchloremic metabolic acidosis. 6. Elevated lipase and amylase 7 HYPOKALEMIA plan pain meds low fat diet KCL PER Result Diagram: 10/07/1844610/07/18446 Results 24hrs Laboratory Tests Test 10/07/18 04:47 White Blood Count 3.7 #L Red Blood Count 2.75 #L Hemoglobin 7.6 #L Hematocrit 24.9 #L Mean Corpuscular Volume 90.5 Mean Corpuscular Hemoglobin 27.6 L Mean Corpuscular Hemoglobin Concent 30.5 L Red Cell Distribution Width 17.4 H Platelet Count 188 # Mean Platelet Volume 11.0 H Immature Granulocytes % 0.500 H Neutrophils % 54.6 Lymphocytes % 32.3 Monocytes % 7.9 Eosinophils % 4.4 Basophils % 0.3 Nucleated Red Blood Cells % 0.0 Immature Granulocytes # 0.020 Neutrophils # 2.0 Lymphocytes # 1.2 Monocytes # 0.3 Eosinophils # 0.2 Basophils # 0.0 Nucleated Red Blood Cells # 0.0 Sodium Level 141 Potassium Level 3.8 Chloride Level 110 Carbon Dioxide Level 24 Anion Gap 7 Blood Urea Nitrogen 8 Creatinine 0.87 Est Glomerular Filtrat Rate mL/min > 60 Glucose Level 99 Calcium Level 8.3 L Magnesium Level 1.8 Total Bilirubin 0.1 L Direct Bilirubin 0.00 Indirect Bilirubin 0.1 Aspartate Amino Transf (AST/SGOT) 56 H Alanine Aminotransferase (ALT/SGPT) 28 Alkaline Phosphatase 85 Total Protein 5.6 L Albumin 2.8 L Globulin 2.80 Albumin/Globulin Ratio 1.00 Amylase Level 140 H Lipase 368 H Subjective 24 Hr Interval Summary Cardiovascular: no complaints Genitourinary: flank pain (BETTER); No bleeding, No dysuria Neurologic: no complaints Exam/Review of Systems Exam Vitals Vital Signs Date Temp Pulse Resp B/P (MAP) Pulse Ox O2 O2 Flow FiO2 Time Delivery Rate 10/07/18 97.9 63 17 114/59 99 Room Air 14:24 (77) Intake and Output 10/06/18 10/06/18 10/07/18 1515:00 23:00 07:00 IntakeIntake Total 600 ml 880 ml 970 ml OutputOutput Total 2000 ml BalanceBalance 600 ml 880 ml -1030 ml Neck: supple Respiratory: clear to auscultation Cardiovascular: regular rate and rhythm Gastrointestinal: soft, bowel sounds (+) Extremities: No edema Results Results 24hrs Laboratory Tests Test 10/07/18 04:47 White Blood Count 3.7 #L Red Blood Count 2.75 #L Hemoglobin 7.6 #L Hematocrit 24.9 #L Mean Corpuscular Volume 90.5 Mean Corpuscular Hemoglobin 27.6 L Mean Corpuscular Hemoglobin Concent 30.5 L Red Cell Distribution Width 17.4 H Platelet Count 188 # Mean Platelet Volume 11.0 H Immature Granulocytes % 0.500 H Neutrophils % 54.6 Lymphocytes % 32.3 Monocytes % 7.9 Eosinophils % 4.4 Basophils % 0.3 Nucleated Red Blood Cells % 0.0 Immature Granulocytes # 0.020 Neutrophils # 2.0 Lymphocytes # 1.2 Monocytes # 0.3 Eosinophils # 0.2 Basophils # 0.0 Nucleated Red Blood Cells # 0.0 Sodium Level 141 Potassium Level 3.8 Chloride Level 110 Carbon Dioxide Level 24 Anion Gap 7 Blood Urea Nitrogen 8 Creatinine 0.87 Est Glomerular Filtrat Rate mL/min > 60 Glucose Level 99 Calcium Level 8.3 L Magnesium Level 1.8 Total Bilirubin 0.1 L Direct Bilirubin 0.00 Indirect Bilirubin 0.1 Aspartate Amino Transf (AST/SGOT) 56 H Alanine Aminotransferase (ALT/SGPT) 28 Alkaline Phosphatase 85 Total Protein 5.6 L Albumin 2.8 L Globulin 2.80 Albumin/Globulin Ratio 1.00 Amylase Level 140 H Lipase 368 H Medications Medication Current Medications Pantoprazole (Protonix Tab) 40 mg DAILY@06 PO Last administered on 10/07/18at 05:19; Admin Dose 40 MG; Start 10/01/18 at 06:00 Tramadol HCl (Ultram) 50 mg Q6H PRN PO MODERATE PAIN LEVEL 4-6 Last administered on 4/7/19at 14:01; Admin Dose 50 MG; Start 09/30/18 at 10:00 Tamsulosin HCl (Flomax) 0.4 mg HS PO Last administered on 10/06/18 20:02; Admin Dose 0.4 MG; Start 10/01/18 at 21:00 Zolpidem Tartrate (Ambien) 5 mg HS PRN PO INSOMNIA Last administered on 10/06/18 23:08; Admin Dose 5 MG; Start 10/01/18 at 23:30 Enoxaparin Sodium (Lovenox) 40 mg DAILY SC Last administered on 10/07/18 08:11; Admin Dose 40 MG; Start 10/02/18 at 09:00 Metoclopramide HCl (Reglan) 10 mg TID PRN IV nausea Last administered on 10/02/18 15:46; Admin Dose 10 MG; Start 10/02/18 at 08:00 Sodium Bicarbonate (Sodium Bicarbonate Tab) 1,300 mg TID PO Last administered on 10/07/18 13:58; Admin Dose 1,300 MG; Start 10/02/18 at 13:00 Citric Acid/ Sodium Citrate (Bicitra) 30 ml TID PO Last administered on 10/07/18 14:01; Admin Dose 30 ML; Start 10/03/18 at 13:00 Sodium Chloride 1,000 ml @ 70 mls/hr [id number] IV Last administered on 10/07/18 14:08; Admin Dose 70 MLS/HR; Start 10/04/18 at 08:30 Acetaminophen/ Hydrocodone Bitart ([place] (5/325)) 1 tab Q4H PRN PO MODERATE PAIN LEVEL 4-6 Last administered on 10/07/18 10:36; Admin Dose 1 TAB; Start at 14:00 Ibuprofen (Motrin) 400 mg Q6H PRN PO MILD PAIN(1-3) OR TEMP>38C; Start 10/05/18 at 14:00 Potassium Chloride (Klor-Con 10) 30 meq QID PO Last administered on 10/07/18 13:58; Admin Dose 30 MEQ; Start 10/06/18 at 17:00 AYAD GIBBONS MD Oct 07, 2018 14:33
[2018-10-07 20:00] VITALS: BP 119/63; PULSE 69; RESP 18
[2018-10-07] MEDS: TAMSULOSIN (SR) 0.4 MG CAP PO SCH (20:15)
[2018-10-08] MEDS: ZOLPIDEM 5 MG TAB PO PRN (00:51)
[2018-10-08 02:00] VITALS: BP 103/56; PULSE 61; RESP 18
[2018-10-08] MEDS: HYDROCODONE/APAP (5/325) TAB PO PRN ×4 (04:11→19:42)
[2018-10-08] MEDS: SOD CHLORIDE 0.45% 1,000 ML IV SCH ×2 (04:13→21:33)
[2018-10-08] MEDS: PANTOPRAZOLE (EC) 40 MG TAB PO SCH (05:48)
[2018-10-08] MEDS: traMADol 50 MG TAB PO PRN ×2 (06:48→14:05)
[2018-10-08 08:06] VITALS: BP 80/41; PULSE 58; RESP 16
--- NOTE | 2018-10-08 08:29 | CONS ---
Consult Date/Type/Reason Admit Date/Time Sep 30, 2018 at 02:57 Initial Consult Date 10/01/18 Type of Consultation: Urology Reason for Consultation Bilateral renal stones and right distal ureteral stones Requesting Provider: LAVERNE COBB MD Date/Time of Note DATE: 10/08/18 TIME: 08:25 Subjective Patient states that she still has pain on and off and she graded her pain as 7-8 out of 10. She still have vaginal bleeding but that is decreasing Objective Vitals Vital Signs Date Temp Pulse Resp B/P (MAP) Pulse Ox O2 O2 Flow FiO2 Time Delivery Rate 10/08/18 97.9 58 16 80/41 (54) 95 08:06 10/07/18 Room Air 14:24 Intake and Output 10/07/18 10/07/18 10/08/18 1515:00 23:00 07:00 IntakeIntake Total 810 ml 200 ml 1550 ml OutputOutput Total 1100 ml 1000 ml 1600 ml BalanceBalance -290 ml -800 ml -50 ml Exam Right flank tenderness and suprapubic tenderness Results/Medications Result Diagram: 10/07/18 04410/07/18446 Home Meds Active Scripts Ferrous Sulfate (Ferrous Sulfate) 325 Mg Tablet.dr, 325 MG PO BID for 30 Days Prov:AMY HERNANDEZ 12/29/17 Reported Medications Multivitamins* (Theragran*) 1 Tab Tab, 1 TAB PO DAILY, TAB 04/06/18 Biotin (Biotin) 5,000 Mcg Tab.rapdis, 5000 MCG PO 04/06/18 Potassium Chloride* (Potassium Chloride*) 20 Meq Tablet.er, 20 MEQ PO TID, TAB.SA 12/19/17 Medications Current Medications Pantoprazole (Protonix Tab) 40 mg DAILY@06 PO Last administered on 10/08/18at 05:48; Admin Dose 40 MG; Start 10/01/18 at 06:00 Tramadol HCl (Ultram) 50 mg Q6H PRN PO MODERATE PAIN LEVEL 4-6 Last administered on 10/08/18at 06:48; Admin Dose 50 MG; Start 09/30/18 at 10:00 Tamsulosin HCl (Flomax) 0.4 mg HS PO Last administered on 10/07/18at 20:15; Admin Dose 0.4 MG; Start 10/01/18 at 21:00 Zolpidem Tartrate (Ambien) 5 mg HS PRN PO INSOMNIA Last administered on 10/08/18 00:51; Admin Dose 5 MG; Start 10/01/18 at 23:30 Enoxaparin Sodium (Lovenox) 40 mg DAILY SC Last administered on 10/07/18 08:11; Admin Dose 40 MG; Start 10/02/18 at 09:00 Metoclopramide HCl (Reglan) 10 mg TID PRN IV nausea Last administered on 10/02/18 15:46; Admin Dose 10 MG; Start 10/02/18 at 08:00 Sodium Bicarbonate (Sodium Bicarbonate Tab) 1,300 mg TID PO Last administered on 10/07/18 20:14; Admin Dose 1,300 MG; Start 10/02/18 at 13:00 Citric Acid/ Sodium Citrate (Bicitra) 30 ml TID PO Last administered on 10/07/18 20:14; Admin Dose 30 ML; Start 10/03/18 at 13:00 Sodium Chloride 1,000 ml @ 70 mls/hr [id number] IV Last administered on 10/08/18 04:13; Admin Dose 70 MLS/HR; Start 10/04/18 at 08:30 Acetaminophen/ Hydrocodone Bitart ([place] (5/325)) 1 tab Q4H PRN PO MODERATE PAIN LEVEL 4-6 Last administered on 10/08/18 04:11; Admin Dose 1 TAB; Start 10/05/18 at 14:00 Ibuprofen (Motrin) 400 mg Q6H PRN PO MILD PAIN(1-3) OR TEMP>38C; Start 10/05/18 at 14:00 Potassium Chloride (Klor-Con 10) 30 meq QID PO Last administered on 10/07/18 20:15; Admin Dose 30 MEQ; Start 10/06/18 at 17:00 Assessment/Plan Hospital Course (Demo Recall) 33-year-old female with known history of renal tubular acidosis, nephrolithiasis and hypokalemia, presented to the emergency room complaining of left flank pain with nausea and feeling fatigued. She underwent a CT scan of the abdomen and pelvis and that showed: 1. Numerous bilateral nonobstructing renal calculi are again seen now with a linear cluster of calculi in the distal right ureter without hydronephrosis or hydroureter. 2. Mild focal anterior bladder wall thickening is now seen measuring approxi mately 0.6 cm. Focal inflammatory process may be considered as well as neoplasm. Consider follow-up bladder ultrasound or CT to assess stability. Consider cystoscopy or further urologic evaluation as warranted. Patient is complaining of bleeding from her vagina. She states that she just had her periods 2 weeks ago. She had a KUB and when that was compared to the one from 2 days before the stone that she had over the sacroiliac joint area on the left side is now in the bladder. The distal right ureteral stones are still in the same location. Because of the vaginal bleed I thought initially she was bleeding because she passed the stone but I did a pelvic exam on her again and she had vaginal bleed consistent with menstrual periods. I discussed with her again doing cystoscopy and ureteroscopy to remove the distal right ureteral stones. She still undecided about that and hoping that she will pass them on her own. CUBA WU MD Oct 08, 2018 08:29
[2018-10-08] MEDS: NA BICARBONATE 650 MG TAB PO SCH ×3 (08:49→21:27)
[2018-10-08] MEDS: CITRIC ACID/NA CITRATE 30 ML CUP PO SCH ×3 (08:49→21:27)
[2018-10-08] MEDS: POTASSIUM CHLORIDE (SR) 10 MEQ TAB PO SCH ×4 (08:49→21:28)
[2018-10-08] MEDS: ENOXAPARIN 40 MG/0.4 ML SYG SC SCH (08:50)
--- NOTE | 2018-10-08 12:23 | PN ---
Date/Time of Note Date/Time of Note DATE: 10/08/18 TIME: 12:19 Assessment/Plan VTE Prophylaxis Risk score (from Ns)>0 risk: 6 SCD applied (from Ns): Yes Pharmacological prophylaxis: NA/contraindicated Pharm contraindication: low risk/ambulating Lines/Catheters IV Catheter Type (from Nrsg): Peripheral IV Urinary Cath still in place: No Assessment/Plan Hospital Course 33 y/o with 1. Left flank pain likely due to . Nephrolithiasis with calcification in the d istal ureter. vs Pancreatitis however the abdominal x-ray and scan scan shows stone in the distal right ureter but the pain is present on the left flank. Patient also has elevated lipase but per GI clinically does not look patient has evidence of pancreatitis 2. The patient has metabolic acidosis. 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 chronic hypokalemia. 4. Dehydration. 5. Hyperchloremic metabolic acidosis. 6. Elevated lipase and amylase Plan - Repeat KUB REVIEWED - Spoke to patinet about cystocopy but pt refusing it, say that sh eis improving and want to wait - recheck Hb as dropped from 10.8 to 7.6 - Abd U/S with Contracted gallbladder. No obvious gallstones or sludge.2. No biliary duct dilatation. - pain meds - CT A+P with contrast per GI for lipase - fu GI recs/urology recs -cw KCL 30 tid - cw sodium bicarb 1300 tid - cw bictra 30 tid - ucxneg so far cw flomax - GI/DVT prophylaxsis dc planning pending H/H Result Diagram: 10/07/18 0447 10/07/187 Subjective 24 Hr Interval Summary Free Text/Dictation Pain is still there but improving able tp eat blood in urine > on periods Exam/Review of Systems Exam Vitals Vital Signs Date Temp Pulse Resp B/P (MAP) Pulse Ox O2 O2 Flow FiO2 Time Delivery Rate 10/08/18 97.9 58 16 80/41 (54) 95 08:06 10/07/18 Room Air 14:24 Intake and Output 10/07/18 10/07/18 10/08/18 1515:00 23:00 07:00 IntakeIntake Total 810 ml 200 ml 1550 ml OutputOutput Total 1100 ml 1000 ml 1600 ml BalanceBalance -290 ml -800 ml -50 ml Exam HEENT: Head is atraumatic, normocephalic. Pupils are equal, reactive. NECK: Supple. No JVD. LUNGS: Clear. CARDIOVASCULAR: S1, S2 is normal. ABDOMEN:TTP Left flank EXTREMITIES: No cyanosis, clubbing, edema. CENTRAL NERVOUS SYSTEM: The patient is awake, alert. No focal deficit. Medications Medication Current Medications Pantoprazole (Protonix Tab) 40 mg DAILY@06 PO Last administered on 10/08/18 05:48; Admin Dose 40 MG; Start 10/01/18 at 06:00 Tramadol HCl (Ultram) 50 mg Q6H PRN PO MODERATE PAIN LEVEL 4-6 Last administered on 10/08/18 06:48; Admin Dose 50 MG; Start 09/30/18 at 10:00 Tamsulosin HCl (Flomax) 0.4 mg HS PO Last administered on 10/07/18 20:15; Admin Dose 0.4 MG; Start 10/01/18 at 21:00 Zolpidem Tartrate (Ambien) 5 mg HS PRN PO INSOMNIA Last administered on 10/08/18 t 00:51; Admin Dose 5 MG; Start 10/01/18 at 23:30 Enoxaparin Sodium (Lovenox) 40 mg DAILY SC Last administered on 10/08/18 08:50; Admin Dose 40 MG; Start 10/02/18 at 09:00 Metoclopramide HCl (Reglan) 10 mg TID PRN IV nausea Last administered on 10/02/18 15:46; Admin Dose 10 MG; Start 10/02/18 at 08:00 Sodium Bicarbonate (Sodium Bicarbonate Tab) 1,300 mg TID PO Last administered on 10/08/18 08:49; Admin Dose 1,300 MG; Start 10/02/18 at 13:00 Citric Acid/ Sodium Citrate (Bicitra) 30 ml TID PO Last administered on 10/08/18 08:49; Admin Dose 30 ML; Start 10/03/18 at 13:00 Sodium Chloride 1,000 ml @ 70 mls/hr [id number] IV Last administered on 10/08/18 04:13; Admin Dose 70 MLS/HR; Start 10/04/18 at 08:30 Acetaminophen/ Hydrocodone Bitart ([place] (5/325)) 1 tab Q4H PRN PO MODERATE PAIN LEVEL 4-6 Last administered on 10/08/18at 08:48; Admin Dose 1 TAB; Start 10/05/18 at 14:00 Ibuprofen (Motrin) 400 mg Q6H PRN PO MILD PAIN(1-3) OR TEMP>38C; Start 10/05/18 at 14:00 Potassium Chloride (Klor-Con 10) 30 meq QID PO Last administered on 10/08/18at 08:49; Admin Dose 30 MEQ; Start 10/06/18 at 17:00 LAVERNE COBB MD Oct 08, 2018 12:23
--- NOTE | 2018-10-08 12:24 | PDOCDIS ---
Discharge Instructions DIAGNOSIS Discharge Diagnosis Nephrolitahiasis CONDITION [id number] Patient Condition: [id number] Fair HOME CARE INSTRUCTIONS: Gclks3Cu Special Diet: Qfmqk0m renal diet ACTIVITY: [id number] Activity Restrictions: [id number] Slowly Increase Activity FOLLOW UP/APPOINTMENTS Follow-up Plan f/u pcp in 1 -2 weeks f/u Dr Tran in 1 week water intake 2-2.5 L Return to ER if has abdominal pain, hematuria, fevers.chills LAVERNE COBB MD Oct 08, 2018 12:24
[2018-10-08] MEDS ORDERED: BICS PO (12:29)
[2018-10-08] MEDS ORDERED: TAMS-14 PO (12:29)
[2018-10-08] MEDS ORDERED: SODI650T PO (12:29)
[2018-10-08] MEDS ORDERED: POTA10TA37 PO (12:29)
[2018-10-08] MEDS ORDERED: HYDR-3601 PO (12:29)
[2018-10-08] MEDS ORDERED: PANT40TA4 PO (12:29)
[2018-10-08] MEDS ORDERED: IBUP-1541 PO (12:29)
[2018-10-08 14:35] VITALS: BP 109/61; PULSE 72; RESP 16
[2018-10-08 20:00] VITALS: BP 116/65; PULSE 74; RESP 18
[2018-10-08] MEDS: TAMSULOSIN (SR) 0.4 MG CAP PO SCH (21:27)
[2018-10-09] MEDS: HYDROCODONE/APAP (5/325) TAB PO PRN ×3 (00:08→09:50)
[2018-10-09] MEDS: ZOLPIDEM 5 MG TAB PO PRN (00:09)
[2018-10-09 02:00] VITALS: BP 120/62; PULSE 73; RESP 18
[2018-10-09] MEDS: PANTOPRAZOLE (EC) 40 MG TAB PO SCH (05:18)
[2018-10-09 08:44] VITALS: BP 116/74; PULSE 70; RESP 20
[2018-10-09] MEDS: ENOXAPARIN 40 MG/0.4 ML SYG SC SCH ×2 (09:00→09:50)
[2018-10-09] MEDS: POTASSIUM CHLORIDE (SR) 10 MEQ TAB PO SCH ×2 (09:49→12:52)
[2018-10-09] MEDS: CITRIC ACID/NA CITRATE 30 ML CUP PO SCH ×2 (09:49→12:52)
[2018-10-09] MEDS: NA BICARBONATE 650 MG TAB PO SCH ×2 (09:50→12:52)
[2018-10-09] MEDS: traMADol 50 MG TAB PO PRN (12:52)
--- NOTE | 2018-10-09 16:38 | DS ---
DATE OF ADMISSION: 09/30/2018 DATE OF DISCHARGE: 10/09/2018 HISTORY OF PRESENTING ILLNESS AND HOSPITAL COURSE: This is a 33-year-old female with a past medical history of nephrolithiasis, hypokalemia, renal tubular acidosis presented with pain and weakness, fla nk pain and body ache. On admission, the patient had chest x-ray, no cardiopulmonary disease. [facility] and pelvis which showed numerous bilateral nonobstructive renal calculi with linear cluster of calculi in the distal right ureter without hydronephrosis or hydroureter, mild focal anterior bladder wall thickening. The patient was admitted to med/surg unit. The patient was started on IV Dilaudid for pain control. The patient has severe metabolic acidosis and history of c hronic RTA. The patient is severe highly hypokalemic on admission. Potassium was 2.6. The patient was getting aggressive IV potassium repletion. The patient was started on pain control and was also started on IV antibiotics. Urine culture was negative. The patient also had elevated lipase. GI wa s consulted; however, the patient denied any nausea or vomiting, was able to tolerate any food withou t any issues. On repeat CT of the abdomen and pelvis, no evidence of acute or chronic pancreatitis, multiple bilateral nonobstructing calculi, largest of which in mid to upper pole of the left kidney m easuring 12 mm, mild to moderate right hydronephrosis. Dr. Alfaro had been consulted and he was fol lowing the patient. However, the patient had been refusing to go for any surgery. Initially, the manuel silver was having pain on the left flank, but then the pain was also on the right flank. She was note d to also have some hematuria. Cystoscopy and ureteroscopy to remove the distal ureteral stone was d iscussed with the patient. However, she was undecided and then she refused for any surgery. The jagdish frey started feeling clinically better every day, was not throwing up, was able to tolerate the diet. Pain was controlled with p.o. [place]. Currently, the patient wishes to go back home on [place] and re turns back to me if the pain gets worse. FINAL DISCHARGE DIAGNOSES: 1. Bilateral flank pain due to nephrolithiasis with calcification of distal ureter. The patient als o has elevated lipase, but clinically does not have evidence of any pancreatitis. 2. Metabolic acidosis, chronic due to renal tubular acidosis. 3. Chronic hypokalemia. 4. Dehydration. 5. Hyperchloremic metabolic acidosis. DISCHARGE CONDITION: Stable. DISCHARGE DIET: Regular. DISCHARGE MEDICATIONS: 1. Bicitra 30 mL p.o. t.i.d. 2. [place] 1 tab p.o. q.4 p.r.n. pain. 3. Ibuprofen p.r.n. pain. 4. Protonix 40 mg daily. 5. Potassium chloride 30 mEq q.i.d. 6. Sodium bicarbonate 650 t.i.d. 7. Flomax 0.4 at bedtime. Continue: 1. Biotin. 2. Iron sulfate. 3. Multivitamin. FOLLOWUP: The patient was instructed to follow up with PCP 1 to 2 weeks. Also follow up with Dr. Jorge charles in 1 to 2 weeks. DISCHARGE INSTRUCTIONS: Return to the ER with severe abdominal pain, nausea, vomiting, fevers, chill s or hematuria. Dictated By: LAVERNE GONZALEZ/LES Conf#: [id number] DID#: [id number] CC: FARRAH LOZANO MD; AYAD GIBBONS MD;*EndCC*
== END 2018-10-09 13:26 | disposition home or self-care (01) | DRG 693 ==
LOC: E/R 00:14 → PP2 02:57
PROVIDERS: ADMIT Internal Medicine; ATTEND Internal Medicine Nephrology
DX: N20.2 Calculus of kidney with calculus of ureter (principal); N17.0 Acute kidney failure with tubular necrosis; E87.2 Acidosis; E87.8 Other disorders of electrolyte and fluid balance, not elsewhere classified; M35.00 Sjogren syndrome, unspecified; N25.89 Other disorders resulting from impaired renal tubular function; E87.6 Hypokalemia; D64.9 Anemia, unspecified; E86.0 Dehydration; Z87.442 Personal history of urinary calculi; F12.90 Cannabis use, unspecified, uncomplicated
CPT/HCPCS: 36415; 71046; 74018; 74160; 74176; 76705; 80048; 80053; 81001; 81025; 82150; 82787; 83690; 83735; 84132; 85014; 85018; 85025; 87086; 93005; 96374; 96375; J0696; J1170; J1650; J1885; J2270; J2405; J2765; J3475; J3480; J7030; Q9967

== ENCOUNTER 2018-12-19 22:19 | Inpatient (IN) | payer OTHER ==
[~2018-12-19] VITALS: Ht 157.5 cm; Wt 54.0 kg
[~2018-12-19 22:19] MED LIST changes: +BICS PO; +HYDR-3601 PO; +IBUP-1541 PO; +PANT40TA4 PO; +POTA10TA37 PO; -POTA20TA96 PO; +SODI650T PO; +TAMS-14 PO
[2018-12-19] MEDS ORDERED: SOD CHLORIDE 0.9% 500 ML IV STA (23:53)
[2018-12-20] MEDS: POTASSIUM CHLORIDE 50 ML IVPB SCH ×4 (01:33→10:58)
[2018-12-20] MEDS: POTASSIUM CHLORIDE (SR) 20 MEQ TAB PO STA ×4 (01:33→14:56)
[2018-12-20] MEDS ORDERED: POTASSIUM CHLORIDE 20 MEQ POWDER FOR ORAL SOLN PO ONE (01:46)
[2018-12-20] MEDS ORDERED: ONDANSETRON 4 MG INJ IV STA (02:57)
[2018-12-20] MEDS ORDERED: morphine 4 MG/ML VIAL IV STA (02:57)
[2018-12-20] MEDS ORDERED: PROMETHAZINE 50 MG SUPP PR ONE (03:00)
[2018-12-20] MEDS ORDERED: PROMETHAZINE 25 MG SUPP PR ONE (03:11)
[2018-12-20] MEDS ORDERED: ONDANSETRON 4 MG INJ IV PRN (03:30)
[2018-12-20] MEDS ORDERED: ACETAMINOPHEN 325 MG TAB PO PRN (03:30)
[2018-12-20] MEDS ORDERED: POTA10TA18 (04:18)
[2018-12-20] MEDS ORDERED: PROM25TA14 PO (04:18)
[2018-12-20] MEDS ORDERED: HYDR-842 PO (04:18)
[2018-12-20] MEDS ORDERED: NA BICARBONATE 650 MG TAB PO ONE (09:30)
[2018-12-20] MEDS: KETOROLAC 15 MG INJ IV PRN (10:14)
[2018-12-20] MEDS: traMADol 50 MG TAB PO PRN ×2 (12:40→20:46)
[2018-12-20] MEDS: NS + KCL 20 MEQ 1,000 ML IV SCH (12:40)
[2018-12-20] MEDS ORDERED: POTASSIUM CHLORIDE (SR) 10 MEQ TAB PO STA (14:54)
[2018-12-20] MEDS ORDERED: POTASSIUM CHLORIDE (SR) 20 MEQ TAB PO STA (16:16)
[2018-12-20] MEDS ORDERED: PANTOPRAZOLE 40 MG INJ IV SCH (16:30)
[2018-12-20] MEDS ORDERED: predniSONE 10 MG TAB PO ONE (16:30)
[2018-12-20] MEDS ORDERED: SOD CHLORIDE 0.9% 1,000 ML IV ONE (16:30)
[2018-12-20 17:28] VITALS: BP 124/73; PULSE 58; RESP 18
[2018-12-20 17:32] VITALS: Ht 157.5 cm; Wt 54.0 kg
[2018-12-20] MEDS: PANTOPRAZOLE (EC) 40 MG TAB PO SCH (18:29)
[2018-12-20 19:03] VITALS: PULSE 78
[2018-12-20] MEDS ORDERED: POTASSIUM CHLORIDE (SR) 8 MEQ CAP PO SCH (19:30)
[2018-12-20 19:47] VITALS: BP 135/62; PULSE 66; RESP 17
--- NOTE | 2018-12-20 19:58 | HP ---
DATE OF ADMISSION: 12/20/2018 REASON FOR ADMISSION: Generalized body aches. HISTORY OF PRESENTING ILLNESS: This is a 33-year-old female with a past medical history of Sjogren s yndrome, history of chronic hypokalemia, chronic renal tubular acidosis with history of kidney stones , hyponatremia, gastritis, esophagitis, presented to the emergency department complaining of generali zed weakness and body aches for the past 1 week. According to the patient, she had been feeling extr bipin weak for the past 1 week. Last 3 days, she noticed that she was extremely tired than usual. S he could not wake up. She was feeling extremely nauseous. According to the patient, she had been ta west her potassium pills 3 times a day. She also takes like baking soda prepared herself at home and takes 3 times a day. The patient also felt that her both sides of her kidneys were hurting and then she is also having some joint pains especially in both hips. That made her worried and came to the emergency department. The patient denied any tingling, numbness at this time. On arrival to the ED, the patient had vital signs that showed initial blood pressure of 104/78. Labs showed white count 9 .8, hemoglobin 12.3, platelet count of 347, potassium was 2.0, bicarbonate was 15, BUN of 12, creatin ine 1.09. Lipase was 515. UA showed 1+ leukocyte esterase, 13 WBCs. Chest x-ray was done that showe d no evidence of cardiopulmonary disease. The patient was also bradycardic, initially had heart rate of 49; however got better to 70s and received NS, potassium 40 IV p.o., morphine, Zofran, promethazi ne and was admitted for further management. PAST MEDICAL HISTORY: 1. Sjogren syndrome. 2. History of metabolic acidosis secondary to renal tubular acidosis. 3. Chronic hypokalemia. 4. Anemia. 5. Hyponatremia. 6. History of gastritis, esophagitis. ALLERGIES: NONE. PAST SURGICAL HISTORY: None. SOCIAL HISTORY: Denies any history of smoking or alcohol. The patient uses of marijuana at [facility]. She currently lives in the [place]. Her lives in [facility]. FAMILY HISTORY: History of kidney stones. REVIEW OF SYSTEMS: The patient complains of generalized weakness, but unable to get up. Denies any tingling, numbness. Has some nausea. Denies any abdominal pain. Denies any hematemesis, any melena , any bright red blood per rectum. PHYSICAL EXAMINATION: VITAL SIGNS: Currently, blood pressure was 85/59, afebrile, heart rate 65, respirations 16. GENERAL: The patient is awake, alert, oriented, does not appear to in any acute distress. HEENT: Pupils are equal, round, reactive to light. The patient looked very pale, cachectic. NECK: Supple. No JVD. HEART: Regular rate and rhythm. LUNGS: Clear to auscultate bilaterally. ABDOMEN: Soft, nontender, nondistended. Positive normoactive bowel sounds. EXTREMITIES: No clubbing, cyanosis or edema. Some joint tenderness present in bilateral hip joint. Some bilateral flank tenderness. LABORATORY DATA: Showed potassium 2.0, BUN of 12, creatinine 1.0. Alkaline phosphatase 128. Lipase of 515. UA shows 13 WBCs, few bacteria. DIAGNOSTIC DATA: Chest x-ray is negative. ASSESSMENT AND PLAN: This is a 33-year-old female who presented with: 1. Generalized weakness, some joint pains, could be secondary to Sjogren's flare or could be seconda ry due to hypokalemia. 2. Hypokalemia. The patient has history of renal tubular acidosis, has chronic potassium losses. N ot sure if the patient has been compliant with her potassium pills at home due to nausea. 3. Nausea, could be secondary to gastritis/esophagitis. The patient has mildly elevated lipase. 4. Chronic metabolic acidosis with bicarbonate of 15. 5. History of kidney stones. 6. History of urinary tract infection. 7. Hypotension. The patient probably baseline is around 90s, however, the patient has got lot of pa in medications. PLAN: At this period of time, the patient will be admitted to telemetry. We will start the patient with IV fluids with potassium. The patient will also be on sodium bicarbonate. The patient will be on p.o. KCl. IV KCl has been depleted. We will also start the patient on some prednisone for some joint flare. Rest of the treatment will depend on the patient's hospitalization course. Dictated By: LAVERNE GONZALEZ/LES Conf#: [id number] DID#: [id number] CC: AYAD GIBBONS MD;*[facility]*
[2018-12-20 20:00] VITALS: PULSE 75
[2018-12-20] MEDS: NA BICARBONATE 650 MG TAB PO SCH (20:04)
[2018-12-20] MEDS: POTASSIUM CHLORIDE (SR) 8 MEQ CAP PO SCH (20:46)
[2018-12-20] MEDS: PROMETHAZINE 25 MG TAB PO PRN (20:46)
[2018-12-20] MEDS: ZOLPIDEM 5 MG TAB PO PRN (22:27)
[2018-12-20 23:26] VITALS: BP 121/66; PULSE 69; RESP 17
[2018-12-21] VITALS (12 sets, daily range): BP systolic 101–133; BP diastolic 55–80; PULSE 66–85; RESP 17–20
[2018-12-21] MEDS: NS + KCL 20 MEQ 1,000 ML IV SCH (05:09)
[2018-12-21] MEDS: traMADol 50 MG TAB PO PRN ×2 (05:10→20:12)
[2018-12-21] MEDS: PANTOPRAZOLE (EC) 40 MG TAB PO SCH (05:10)
[2018-12-21] MEDS: PROMETHAZINE 25 MG TAB PO PRN (05:10)
[2018-12-21] MEDS: NA BICARBONATE 650 MG TAB PO SCH ×2 (08:13→20:12)
[2018-12-21] MEDS: POTASSIUM CHLORIDE (SR) 8 MEQ CAP PO SCH ×3 (08:13→20:12)
[2018-12-21] MEDS: KETOROLAC 15 MG INJ IV PRN ×2 (09:08→16:30)
--- NOTE | 2018-12-21 12:45 | PN ---
AMY HERNANDEZ 12/21/18 1245: Date/Time of Note Date/Time of Note DATE: 12/21/18 TIME: 12:39 Assessment/Plan VTE Prophylaxis Risk score (from Ns)>0 risk: 1 SCD applied (from [facility]): Yes SCD contraindicated: low risk/ambulating Pharmacological prophylaxis: NA/contraindicated Pharm contraindication: low risk/ambulating Lines/Catheters IV Catheter Type (from [facility]): Peripheral IV Assessment/Plan Hospital Course 1. Generalized weakness, some joint pains, could be secondary to Sjogren's flare or could be secondary due to hypokalemia. 2. Hypokalemia. The patient has history of renal tubular acidosis, has chronic potassium losses. Not sure if the patient has been compliant with her potassium pills at home due to nausea. 3. Nausea, could be secondary to gastritis/esophagitis. The patient has mildly elevated lipase. 4. Chronic metabolic acidosis with bicarbonate of 15. 5. History of kidney stones. 6. Urinary tract infection. 7. Hypotension. The patient probably baseline is around 90s, however, the patient has got lot of pain medications. 8. Anemia 9. Hypophosphatemia. 10. Chronic pain syndrome 11.Weight loss Assessment/Plan - telemetry. -CT pending -c/w sodium bicarbonate. -K phos supplement - The patient will be on p.o. KCl. IV -KCl has been depleted. -c/w prednisone for some joint flare. -DVT proph. SCD bilaterally -GI proph. Protonix -pain control [place] Result Diagram: 12/21/18 0530 12/21/18 0530 Results 24hrs Laboratory Tests Test 12/20/18 14:10 12/20/18 18:57 12/21/18 05:17 12/21/18 05:30 Potassium Level 2.4 *L 2.6 *L 3.1 L Creatine Kinase 45 Creatine Kinase 0.5 Index Creatinine Kinase MB < 0.22 (Mass) Troponin I < 0.012 Phosphorus Level 2.1 L Magnesium Level 2.1 White Blood Count 8.7 Red Blood Count 3.54 L Hemoglobin 10.1 L Hematocrit 31.6 L Mean Corpuscular 89.3 Volume Mean Corpuscular 28.5 L Hemoglobin Mean Corpuscular 32.0 Hemoglobin Concent Red Cell 21.4 H Distribution Width Platelet Count 272 # Mean Platelet Volume 11.3 H Immature 0.900 H Granulocytes % Neutrophils % 89.0 H Lymphocytes % 8.8 L Monocytes % 1.2 Eosinophils % 0.0 Basophils % 0.1 Nucleated Red Blood 0.0 Cells % Immature 0.080 H Granulocytes # Neutrophils # 7.7 H Lymphocytes # 0.8 Monocytes # 0.1 L Eosinophils # 0.0 Basophils # 0.0 Nucleated Red Blood 0.0 Cells # Sodium Level 145 H Chloride Level 125 H Carbon Dioxide Level 10 L Anion Gap 10 Blood Urea Nitrogen 5 L Creatinine 0.82 Est Glomerular > 60 Filtrat Rate mL/min Glucose Level 120 Calcium Level 8.3 L Subjective 24 Hr Interval Summary Respiratory: no complaints Musculoskeletal: back pain, bone/joint pain, restricted range of motion Exam/Review of Systems Exam Vitals Vital Signs Date Temp Pulse Resp B/P (MAP) Pulse Ox O2 O2 Flow FiO2 Time Delivery Rate 12/21/18 72 12:13 12/21/18 98.2 20 133/80 100 Room Air 10:57 (97) Intake and Output 12/20/18 12/20/18 12/21/18 1515:00 23:00 07:00 IntakeIntake Total 1600 ml 1800 ml BalanceBalance 1600 ml 1800 ml Constitutional: alert, oriented Respiratory: clear to auscultation Cardiovascular: regular rate and rhythm Gastrointestinal: soft Musculoskeletal: muscle weakness Results Result Diagram: 12/21/18 0530 12/21/18 0530 Results 24hrs Laboratory Tests Test 12/20/18 14:10 12/20/18 18:57 12/21/18 05:17 12/21/18 05:30 Potassium Level 2.4 *L 2.6 *L 3.1 L Creatine Kinase 45 Creatine Kinase 0.5 Index Creatinine Kinase MB < 0.22 (Mass) Troponin I < 0.012 Phosphorus Level 2.1 L Magnesium Level 2.1 White Blood Count 8.7 Red Blood Count 3.54 L Hemoglobin 10.1 L Hematocrit 31.6 L Mean Corpuscular 89.3 Volume Mean Corpuscular 28.5 L Hemoglobin Mean Corpuscular 32.0 Hemoglobin Concent Red Cell 21.4 H Distribution Width Platelet Count 272 # Mean Platelet Volume 11.3 H Immature 0.900 H Granulocytes % Neutrophils % 89.0 H Lymphocytes % 8.8 L Monocytes % 1.2 Eosinophils % 0.0 Basophils % 0.1 Nucleated Red Blood 0.0 Cells % Immature 0.080 H Granulocytes # Neutrophils # 7.7 H Lymphocytes # 0.8 Monocytes # 0.1 L Eosinophils # 0.0 Basophils # 0.0 Nucleated Red Blood 0.0 Cells # Sodium Level 145 H Chloride Level 125 H Carbon Dioxide Level 10 L Anion Gap 10 Blood Urea Nitrogen 5 L Creatinine 0.82 Est Glomerular > 60 Filtrat Rate mL/min Glucose Level 120 Calcium Level 8.3 L Medications Medication Current Medications Ketorolac Tromethamine (Toradol) 15 mg Q6H PRN IV PAIN Last administered on 12/21/18 09:08; Admin Dose 15 MG; Start 12/20/18 at 09:30; Stop 12/23/18 at 09:29 Sodium Bicarbonate (Sodium Bicarbonate Tab) 1,300 mg BID PO Last administered on 12/21/18 08:13; Admin Dose 1,300 MG; Start 12/20/18 at 21:00 Tramadol HCl (Ultram) 50 mg Q8 PRN PO PAIN Last administered on 12/21/18 05:10; Admin Dose 50 MG; Start 12/20/18 at 12:30 Promethazine HCl (Phenergan) 25 mg Q8 PRN PO NAUSEA AND/OR VOMITING Last adm inistered on 12/21/18 05:10; Admin Dose 25 MG; Start 12/20/18 at 16:30 Pantoprazole (Protonix Tab) 40 mg DAILY@06 PO Last administered on 12/21/18 05:10; Admin Dose 40 MG; Start 12/20/18 at 18:12 Potassium Chloride (Micro-K) 40 meq TID PO Last administered on 12/21/18at 08:13; Admin Dose 40 MEQ; Start 12/20/18 at 21:00 Zolpidem Tartrate (Ambien) 5 mg HS PRN PO INSOMNIA Last administered on 12/02 22:27; Admin Dose 5 MG; Start 12/20/18 at 22:30 Sodium Bicarbonate 125 meq/Dextrose 1,125 ml @ 50 mls/hr [id number] IV ; Start 12/21/18 at 11:00 LAVERNE COBB MD 12/24/18 1042: Assessment/Plan Assessment/Plan Assessment/Plan seen and examined bicarb gtt fro acidosis pending CT scan Result Diagram: 12/21/18 0530 12/21/18 0530 AMY HERNANDEZ Dec 21, 2018 12:45 LAVERNE COBB MD Dec 24, 2018 10:42
[2018-12-21] MEDS: SODIUM BICARBONATE (IV ADD) 125 MEQ in DEXTROSE 5% 1,000 ML IV SCH (12:52)
[2018-12-21] MEDS ORDERED: POTASSIUM PHOSPHATE 20 MEQ in SOD CHLORIDE 0.9% 250 ML IVPB ONE (13:30)
[2018-12-21] MEDS ORDERED: HYDROCODONE/APAP (5/325) TAB PO PRN (13:30)
[2018-12-21] MEDS: ZOLPIDEM 5 MG TAB PO PRN (23:27)
[2018-12-22] VITALS (11 sets, daily range): BP systolic 96–135; BP diastolic 58–85; PULSE 63–84; RESP 18–19
[2018-12-22] MEDS: PANTOPRAZOLE (EC) 40 MG TAB PO SCH (04:01)
[2018-12-22] MEDS: HYDROCODONE/APAP (5/325) TAB PO PRN ×3 (04:01→21:39)
[2018-12-22] MEDS: NA BICARBONATE 650 MG TAB PO SCH ×2 (08:14→19:47)
[2018-12-22] MEDS: POTASSIUM CHLORIDE (SR) 8 MEQ CAP PO SCH ×5 (08:14→19:47)
[2018-12-22] MEDS: SODIUM BICARBONATE (IV ADD) 125 MEQ in DEXTROSE 5% 1,000 ML IV SCH ×2 (09:30→14:36)
[2018-12-22] MEDS: traMADol 50 MG TAB PO PRN (11:32)
--- NOTE | 2018-12-22 11:34 | PN ---
Date/Time of Note Date/Time of Note DATE: 12/22/18 TIME: 11:32 Assessment/Plan VTE Prophylaxis Risk score (from Nsg)>0 risk: 1 SCD applied (from Ns): Yes Pharmacological prophylaxis: NA/contraindicated Pharm contraindication: low risk/ambulating Lines/Catheters IV [facility] Type (from [facility]): Peripheral IV Assessment/Plan Hospital Course 1. Generalized weakness, some joint pains, could be secondary to Sjogren's flare or could be secondary due to hypokalemia. 2. Hypokalemia. The patient has history of renal tubular acidosis, has chronic potassium losses. Not sure if the patient has been compliant with her potassium pills at home due to nausea. 3. Nausea, could be secondary to gastritis/esophagitis. The patient has mildly elevated lipase. 4. Chronic metabolic acidosis with bicarbonate of 15. 5. History of kidney stones. 6. Urinary tract infection. 7. Hypotension. The patient probably baseline is around 90s, however, the patient has got lot of pain medications. 8. Anemia 9. Hypophosphatemia. 10. Chronic pain syndrome 11.Weight loss Assessment/Plan - telemetry. -CT reviewed:1. Since the previous examination, the distal right ureteral calculi have passed and the right-sided hydronephrosis has resolved. 2. As before there are innumerable bilateral nonobstructing intrarenal calculi ranging between 2-7 mm in size. There is no hydronephrosis in either kidney on the current study or perinephric stranding. 3. Mild thickening of the gallbladder wall and questionable pericholecystic fluid. Correlation with ultrasound is recommended. 4. Physiologic free fluid in the pelvis. No abscess or free air. 5. Questionable mild thickening of the bladder wall. Recommend correlation with urinalysis. 6. Normal appendix -c/w sodium bicarbonate. - The patient will be on p.o. KCl. -KCl has been replete daily. -Rocephin IV -c/w prednisone for joint flare. -DVT proph. SCD bilaterally -GI proph. Protonix -pain control c/w morphine/norco/toradol Result Diagram: 12/22/18 0506 12/22/18 0506 Results 24hrs Laboratory Tests Test 12/22/18 05:06 White Blood Count 8.6 Red Blood Count 3.38 L Hemoglobin 9.4 L Hematocrit 29.4 L Mean Corpuscular Volume 87.0 Mean Corpuscular Hemoglobin 27.8 L Mean Corpuscular Hemoglobin Concent 32.0 Red Cell Distribution Width 21.7 H Platelet Count 252 Mean Platelet Volume 11.3 H Immature Granulocytes % 0.500 H Neutrophils % 68.7 Lymphocytes % 25.8 Monocytes % 4.1 Eosinophils % 0.7 Basophils % 0.2 Nucleated Red Blood Cells % 0.0 Immature Granulocytes # 0.040 H Neutrophils # 5.9 Lymphocytes # 2.2 Monocytes # 0.4 Eosinophils # 0.1 Basophils # 0.0 Nucleated Red Blood Cells # 0.0 Sodium Level 144 Potassium Level 2.6 *L Chloride Level 121 H Carbon Dioxide Level 12 L Anion Gap 11 Blood Urea Nitrogen 7 Creatinine 0.85 Est Glomerular Filtrat Rate mL/min > 60 Glucose Level 80 # Calcium Level 8.0 L Subjective 24 Hr Interval Summary Musculoskeletal: bone/joint pain (bilateral hips) Exam/Review of Systems Exam Vitals Vital Signs Date Temp Pulse Resp B/P (MAP) Pulse Ox O2 O2 Flow FiO2 Time Delivery Rate 12/22/18 98.0 77 18 135/84 100 11:24 (101) 12/21/18 Room Air 14:45 Intake and Output 12/21/18 12/21/18 12/22/18 1515:00 23:00 07:00 IntakeIntake Total 720 ml 880 ml 925 ml BalanceBalance 720 ml 880 ml 925 ml Constitutional: alert, oriented Cardiovascular: regular rate and rhythm Gastrointestinal: soft Musculoskeletal: muscle weakness Results Results 24hrs Laboratory Tests Test 12/22/18 05:06 White Blood Count 8.6 Red Blood Count 3.38 L Hemoglobin 9.4 L Hematocrit 29.4 L Mean Corpuscular Volume 87.0 Mean Corpuscular Hemoglobin 27.8 L Mean Corpuscular Hemoglobin Concent 32.0 Red Cell Distribution Width 21.7 H Platelet Count 252 Mean Platelet Volume 11.3 H Immature Granulocytes % 0.500 H Neutrophils % 68.7 Lymphocytes % 25.8 Monocytes % 4.1 Eosinophils % 0.7 Basophils % 0.2 Nucleated Red Blood Cells % 0.0 Immature Granulocytes # 0.040 H Neutrophils # 5.9 Lymphocytes # 2.2 Monocytes # 0.4 Eosinophils # 0.1 Basophils # 0.0 Nucleated Red Blood Cells # 0.0 Sodium Level 144 Potassium Level 2.6 *L Chloride Level 121 H Carbon Dioxide Level 12 L Anion Gap 11 Blood Urea Nitrogen 7 Creatinine 0.85 Est Glomerular Filtrat Rate mL/min > 60 Glucose Level 80 # Calcium Level 8.0 L Medications Medication Current Medications Ketorolac Tromethamine (Toradol) 15 mg Q6H PRN IV PAIN Last administered on 12/21/18 16:30; Admin Dose 15 MG; Start 12/20/18 at 09:30; Stop 12/23/18 at 09:29 Sodium Bicarbonate (Sodium Bicarbonate Tab) 1,300 mg BID PO Last administered on 12/22/18 08:14; Admin Dose 1,300 MG; Start 12/20/18 at 21:00 Promethazine HCl (Phenergan) 25 mg Q8 PRN PO NAUSEA AND/OR VOMITING Last administered on 12/21/18 05:10; Admin Dose 25 MG; Start 12/20/18 at 16:30 Pantoprazole (Protonix Tab) 40 mg DAILY@06 PO Last administered on 12/22/18 04:01; Admin Dose 40 MG; Start 12/20/18 at 18:12 Zolpidem Tartrate (Ambien) 5 mg HS PRN PO INSOMNIA Last administered on 12/21/18 23:27; Admin Dose 5 MG; Start 12/20/18 at 22:30 Sodium Bicarbonate 125 meq/Dextrose 1,125 ml @ 50 mls/hr [id number] IV Last administered on 12/21/18 12:52; Admin Dose 50 MLS/HR; Start 12/21/18 at 11:00 Tramadol HCl (Ultram) 50 mg Q6H PRN PO PAIN Last administered on 12/21/18 20:12; Admin Dose 50 MG; Start 12/21/18 at 14:00 Acetaminophen/ Hydrocodone Bitart ([place] (5/325)) 1 tab Q4H PRN PO MODERATE PAIN LEVEL 4-6 Last administered on 12/22/18 08:15; Admin Dose 1 TAB; Start 12/21/18 at 15:30 Potassium Chloride (Micro-K) 40 meq QID PO Last administered on 12/22/18 08:14; Admin Dose 40 MEQ; Start 12/22/18 at 07:00 AMY HERNANDEZ Dec 22, 2018 11:34
[2018-12-22] MEDS: CEFTRIAXONE 1 GM/50 ML (PMX) 50 ML IVPB SCH (14:35)
[2018-12-22] MEDS: morphine 2 MG INJ IV PRN (14:36)
[2018-12-22] MEDS ORDERED: NA BICARBONATE 650 MG TAB PO SCH (22:00)
[2018-12-22] MEDS: CITRIC ACID/NA CITRATE 30 ML CUP PO SCH (22:47)
[2018-12-22] MEDS ORDERED: NA BICARBONATE 650 MG TAB PO ONE (22:50)
[2018-12-23] VITALS (12 sets, daily range): BP systolic 94–117; BP diastolic 55–72; PULSE 66–98; RESP 18–19
[2018-12-23] MEDS: D5W + KCL 20 MEQ 1,000 ML IV SCH ×2 (00:10→18:30)
[2018-12-23] MEDS: morphine 2 MG INJ IV PRN ×3 (00:13→20:39)
[2018-12-23] MEDS: CITRIC ACID/NA CITRATE 30 ML CUP PO SCH ×3 (04:20→20:37)
[2018-12-23] MEDS: PANTOPRAZOLE (EC) 40 MG TAB PO SCH (04:20)
[2018-12-23] MEDS: KETOROLAC 15 MG INJ IV PRN (04:20)
[2018-12-23] MEDS: POTASSIUM CHLORIDE (SR) 8 MEQ CAP PO SCH ×4 (08:59→20:39)
[2018-12-23] MEDS: NA BICARBONATE 650 MG TAB PO SCH ×4 (09:00→20:39)
--- NOTE | 2018-12-23 09:32 | PN ---
Date/Time of Note Date/Time of Note DATE: 12/23/18 TIME: 09:32 Assessment/Plan VTE Prophylaxis Risk score (from Ns)>0 risk: 1 SCD applied (from Ns): Yes SCD contraindicated: low risk/ambulating Pharmacological prophylaxis: NA/contraindicated Pharm contraindication: low risk/ambulating Lines/Catheters IV Catheter Type (from [facility] Mid Line Assessment/Plan Hospital Course 1. Generalized weakness, some joint pains, could be secondary to Sjogren's flare or could be secondary due to hypokalemia. 2. Hypokalemia. The patient has history of renal tubular acidosis, has chronic potassium losses. Not sure if the patient has been compliant with her potassium pills at home due to nausea. 3. Nausea, could be secondary to gastritis/esophagitis. The patient has mildly elevated lipase. 4. Chronic metabolic acidosis with bicarbonate of 15. 5. History of kidney stones. 6. Urinary tract infection. 7. Hypotension. The patient probably baseline is around 90s, however, the patient has got lot of pain medications. 8. Anemia 9. Hypophosphatemia. 10. Chronic pain syndrome 11.Weight loss Assessment/Plan - telemetry. -spike of fever -CT reviewed: 1. Since the previous examination, the distal right ureteral calculi have passed and the right-sided hydronephrosis has resolved. 2. As before there are innumerable bilateral nonobstructing intrarenal calculi ranging between 2-7 mm in size. There is no hydronephrosis in either kidney on the current study or perinephric stranding. 3. Mild thickening of the gallbladder wall and questionable pericholecystic fluid. Correlation with ultrasound is recommended. 4. Physiologic free fluid in the pelvis. No abscess or free air. 5. Questionable mild thickening of the bladder wall. Recommend correlation with urinalysis. 6. Normal appendix -c/w sodium bicarbonate TID. - p.o. KCl QID. -KCl has been replete daily. -Rocephin IV -DVT proph. SCD bilaterally -GI proph. Protonix -melatonin for better sleep -pain control c/w morphine/norco/ Result Diagram: 12/23/188 12/23/188 Results 24hrs Laboratory Tests Test 12/23/18 04:48 White Blood Count 10.2 Red Blood Count 3.12 L Hemoglobin 8.8 L Hematocrit 27.7 L Mean Corpuscular Volume 88.8 Mean Corpuscular Hemoglobin 28.2 L Mean Corpuscular Hemoglobin Concent 31.8 L Red Cell Distribution Width 21.7 H Platelet Count 224 Mean Platelet Volume 11.0 H Immature Granulocytes % 0.400 Neutrophils % 77.7 H Lymphocytes % 14.7 L Monocytes % 6.3 Eosinophils % 0.7 Basophils % 0.2 Nucleated Red Blood Cells % 0.0 Immature Granulocytes # 0.040 H Neutrophils # 8.0 H Lymphocytes # 1.5 Monocytes # 0.6 Eosinophils # 0.1 Basophils # 0.0 Nucleated Red Blood Cells # 0.0 Sodium Level 143 Potassium Level 2.7 *L Chloride Level 117 H Carbon Dioxide Level 16 L Anion Gap 10 Blood Urea Nitrogen 7 Creatinine 0.89 Est Glomerular Filtrat Rate mL/min > 60 Glucose Level 84 Calcium Level 7.7 L Phosphorus Level 3.0 Magnesium Level 1.7 Total Bilirubin 0.8 Direct Bilirubin 0.00 Indirect Bilirubin 0.8 Aspartate Amino Transf (AST/SGOT) 17 Alanine Aminotransferase (ALT/SGPT) 16 Alkaline Phosphatase 75 Total Protein 6.4 Albumin 3.1 L Globulin 3.30 H Albumin/Globulin Ratio 0.93 Subjective 24 Hr Interval Summary Free Text/Dictation insomnia Constitutional: improved Exam/Review of Systems Exam Vitals Vital Signs Date Temp Pulse Resp B/P (MAP) Pulse Ox O2 O2 Flow FiO2 Time Delivery Rate 12/23/18 84 08:21 12/23/18 98.5 18 113/72 97 07:43 (86) 12/21/18 Room Air 14:45 Intake and Output 12/22/18 12/22/18 12/23/18 1515:00 23:00 07:00 IntakeIntake Total 1000 ml 300 ml 2210 ml BalanceBalance 1000 ml 300 ml 2210 ml Constitutional: alert, oriented Respiratory: clear to auscultation Cardiovascular: regular rate and rhythm Gastrointestinal: soft Genitourinary - Female: CVA tenderness (pos right side) Results Results 24hrs Laboratory Tests Test 12/23/18 04:48 White Blood Count 10.2 Red Blood Count 3.12 L Hemoglobin 8.8 L Hematocrit 27.7 L Mean Corpuscular Volume 88.8 Mean Corpuscular Hemoglobin 28.2 L Mean Corpuscular Hemoglobin Concent 31.8 L Red Cell Distribution Width 21.7 H Platelet Count 224 Mean Platelet Volume 11.0 H Immature Granulocytes % 0.400 Neutrophils % 77.7 H Lymphocytes % 14.7 L Monocytes % 6.3 Eosinophils % 0.7 Basophils % 0.2 Nucleated Red Blood Cells % 0.0 Immature Granulocytes # 0.040 H Neutrophils # 8.0 H Lymphocytes # 1.5 Monocytes # 0.6 Eosinophils # 0.1 Basophils # 0.0 Nucleated Red Blood Cells # 0.0 Sodium Level 143 Potassium Level 2.7 *L Chloride Level 117 H Carbon Dioxide Level 16 L Anion Gap 10 Blood Urea Nitrogen 7 Creatinine 0.89 Est Glomerular Filtrat Rate mL/min > 60 Glucose Level 84 Calcium Level 7.7 L Phosphorus Level 3.0 Magnesium Level 1.7 Total Bilirubin 0.8 Direct Bilirubin 0.00 Indirect Bilirubin 0.8 Aspartate Amino Transf (AST/SGOT) 17 Alanine Aminotransferase (ALT/SGPT) 16 Alkaline Phosphatase 75 Total Protein 6.4 Albumin 3.1 L Globulin 3.30 H Albumin/Globulin Ratio 0.93 Medications Medication Current Medications Promethazine HCl (Phenergan) 25 mg Q8 PRN PO NAUSEA AND/OR VOMITING Last administered on 12/21/18 05:10; Admin Dose 25 MG; Start 12/20/18 at 16:30 Pantoprazole (Protonix Tab) 40 mg DAILY@06 PO Last administered on 12/23/18 04:20; Admin Dose 40 MG; Start 12/20/18 at 18:12 Zolpidem Tartrate (Ambien) 5 mg HS PRN PO INSOMNIA Last administered on 12/21/18 23:27; Admin Dose 5 MG; Start 12/20/18 at 22:30 Tramadol HCl (Ultram) 50 mg Q6H PRN PO PAIN Last administered on 12/22/18 11:32; Admin Dose 50 MG; Start 12/21/18 at 14:00 Acetaminophen/ Hydrocodone Bitart ([place] (5/325)) 1 tab Q4H PRN PO MODERATE PAIN LEVEL 4-6 Last administered on 12/22/18at 21:39; Admin Dose 1 TAB; Start 12/21/18 at 15:30 Potassium Chloride (Micro-K) 40 meq QID PO Last administered on 12/23/18 08:59; Admin Dose 40 MEQ; Start 12/22/18 at 07:00 Morphine Sulfate (morphine) 1 mg Q6H PRN IV SEVERE PAIN LEVEL 7-10 Last administered on 12/23/18 09:00; Admin Dose 1 MG; Start 12/22/18 at 13:00 Ceftriaxone Sodium 50 ml @ 100 mls/hr Q24H IVPB Last administered on 12/22/18 14:35; Admin Dose 100 MLS/HR; Start 12/22/18 at 13:30 Citric Acid/ Sodium Citrate (Bicitra) 30 ml Q8 PO Last administered on 12/23/18 04:20; Admin Dose 30 ML; Start 12/22/18 at 22:00 Potassium Chloride/Dextrose 1,000 ml @ 50 mls/hr Q20H IV Last administered on 12/23/18 00:10; Admin Dose 50 MLS/HR; Start 12/22/18 at 22:30 Sodium Bicarbonate (Sodium Bicarbonate Tab) 2,600 mg QID PO Last administered on 12/23/18 09:00; Admin Dose 2,600 MG; Start 12/23/18 at 09:00 AMY HERNANDEZ Dec 23, 2018 09:32
[2018-12-23] MEDS ORDERED: POTASSIUM CHLORIDE (SR) 8 MEQ CAP PO STA (10:26)
[2018-12-23] MEDS: traMADol 50 MG TAB PO PRN (12:16)
[2018-12-23] MEDS: CEFTRIAXONE 1 GM/50 ML (PMX) 50 ML IVPB SCH (14:25)
[2018-12-23] MEDS: HYDROCODONE/APAP (5/325) TAB PO PRN (16:28)
[2018-12-23] MEDS ORDERED: MELATONIN 5 MG TABLET PO SCH (21:00)
[2018-12-23] MEDS ORDERED: ACETAMINOPHEN 325 MG TAB PO PRN (21:30)
[2018-12-24] VITALS (8 sets, daily range): BP systolic 105–141; BP diastolic 59–67; PULSE 59–99; RESP 19–22
[2018-12-24] MEDS: HYDROCODONE/APAP (5/325) TAB PO PRN ×2 (00:25→08:28)
[2018-12-24] MEDS ORDERED: ZOLPIDEM 5 MG TAB PO PRN (01:00)
[2018-12-24] MEDS: CITRIC ACID/NA CITRATE 30 ML CUP PO SCH ×2 (05:27→14:00)
[2018-12-24] MEDS: morphine 2 MG INJ IV PRN ×2 (05:28→11:39)
[2018-12-24] MEDS: PANTOPRAZOLE (EC) 40 MG TAB PO SCH (05:28)
[2018-12-24] MEDS: D5W + KCL 20 MEQ 1,000 ML IV SCH (05:34)
[2018-12-24] MEDS: POTASSIUM CHLORIDE (SR) 8 MEQ CAP PO SCH ×2 (08:28→13:33)
[2018-12-24] MEDS: NA BICARBONATE 650 MG TAB PO SCH ×2 (08:28→13:32)
--- NOTE | 2018-12-24 13:29 | PDOCDIS ---
Discharge Instructions DIAGNOSIS Discharge Diagnosis generalised weakness hypokalemia CONDITION [id number] Patient Condition: [id number] Fair HOME CARE INSTRUCTIONS: [id number] Diet Instructions: [id number] Regular ACTIVITY: [id number] Activity Restrictions: [id number] Slowly Increase Activity Rest between Activity Avoid heavy lifting FOLLOW UP/APPOINTMENTS Follow-up Plan fu pcp in 1 week fu nephrology as OPD in 1-2 weeks LAVERNE COBB MD Dec 24, 2018 13:29
[2018-12-24] MEDS: CEFTRIAXONE 1 GM/50 ML (PMX) 50 ML IVPB SCH (13:30)
[2018-12-24] MEDS ORDERED: BICS PO (13:33)
[2018-12-24] MEDS ORDERED: POTA8TAB2 PO (13:33)
[2018-12-24] MEDS ORDERED: HYDR-3601 PO (13:33)
[2018-12-24] MEDS ORDERED: SODI650T PO (13:33)
--- NOTE | 2018-12-24 13:39 | QN ---
Documentation Comment pt seen and examined see dc summary fu BMP in 1 week LAVERNE COBB MD Dec 24, 2018 13:39
--- NOTE | 2018-12-24 16:37 | DS ---
DATE OF ADMISSION: 12/20/2018 DATE OF DISCHARGE: 12/24/2018 HISTORY OF PRESENTING ILLNESS AND HOSPITAL COURSE: A 33-year-old female with past medical history of Sjogren syndrome, history of chronic hypokalemia, chronic renal tubular acidosis, history of kidney stones, hyponatremia, gastritis, esophagitis, presented to the emergency department complaining of ge neralized weakness, body aches for the past 1 week. The patient was feeling extremely weak. In last 3 days, she noticed she was extremely tired than usual. She could not wake up. She was feeling ext remely nauseous. According to her, she had been taking her potassium pills 3 times a day. She also was taking baking soda prepared herself at home 3 times a day. The patient felt both of her kidneys were hurting. She had some joint pains especially in the hips. She came to the ER for evaluation. On admission, blood pressure was 104/78, white count 9.8, hemoglobin 12.3, potassium was 2, bicarbona te was 15, BUN of 12, creatinine 1.09. Lipase was 515. UA shows 1+ leukocyte esterase, 13 WBCs. Th e patient was noted to be bradycardic, initial heart rate of 49 however improved during the hospitali zation stay. The patient was aggressively treated with potassium IV n.p.o. Bicarbonate also dropped to 10. The patient was initially started on some bicarbonate drip. The patient also had a CT of th e abdomen and pelvis that showed the distal right calculi has passed. The right hydronephrosis resol rajiv. Innumerable bilateral nonobstructing intrarenal calculi ranging between 2 to 7 mm size at prese nt which is old. The patient was requiring lot of IV pain medications round the clock. Urine cultur e shows mixed gram-positive organism. The patient's condition was getting better every day. The pat ient was started on p.o. Bicitra and also sodium bicarbonate and was taken off of bicarbonate drip. The patient was also started on potassium supplements q.i.d. The patient has been feeling much alvaro r. The patient was continued on Rocephin during the hospitalization stay; however, was discontinued on discharge. The patient was feeling much better and continuously stable to be discharged home. FINAL DISCHARGE DIAGNOSES: 1. Generalized weakness, some joint pain secondary to Sjogren's flare or secondary to hypokalemia. 2. Hypokalemia, history of renal tubular acidosis, chronic potassium losses. 3. Nausea secondary to gastritis, esophagitis, mildly elevated lipase, resolved. 4. Chronic metabolic acidosis. 5. History of kidney stones. 6. History of urinary tract infection. 7. History of anemia. 8. Hypophosphatemia. 9. Chronic pain syndrome. DISCHARGE CONDITION: Stable. DISCHARGE DIET: Regular. MEDICATIONS TAKING AT HOME: 1. Bicitra 30 mL p.o. q.8. 2. [place] 1 tab p.o. q.4 p.r.n. pain, only 15 tablets were given. 3. Potassium chloride 40 mEq p.o. b.i.d. 4. Sodium bicarbonate 600 mg p.o. t.i.d. Continue: 1. Biotene. 2. Atarax p.r.n. 3. Promethazine p.r.n. DISCHARGE INSTRUCTIONS: The patient was instructed to have BMP checked in 1 week and results will be faxed to PCP's office. Follow up with PCP 1 to 2 weeks. The patient will need referral for her out patient md do resident urgent care in 1 to 2 weeks. Dictated By: LAVERNE GONZALEZ/LES Conf#: [id number] DID#: [id number] CC: AYAD GIBBONS MD;*[facility]*
== END 2018-12-24 15:45 | disposition home or self-care (01) | DRG 546 ==
LOC: E/R 22:19 → 6WM 12-20 03:20
PROVIDERS: ADMIT Internal Medicine Nephrology; ATTEND Internal Medicine Nephrology
DX: M35.00 Sjogren syndrome, unspecified (principal); E87.2 Acidosis; N39.0 Urinary tract infection, site not specified; I95.9 Hypotension, unspecified; N25.89 Other disorders resulting from impaired renal tubular function; E83.39 Other disorders of phosphorus metabolism; E87.6 Hypokalemia; D64.9 Anemia, unspecified; G89.4 Chronic pain syndrome; R63.4 Abnormal weight loss; Z68.21 Body mass index [BMI] 21.0-21.9, adult; K29.70 Gastritis, unspecified, without bleeding; K20.9 Esophagitis, unspecified
CPT/HCPCS: 71045; 74176; 80048; 80053; 81001; 81003; 81025; 82550; 82553; 83690; 83735; 83880; 84100; 84132; 84484; 85025; 87086; 93005; J0696; J1885; J2270; J3480; J7030; J7040; J7050; J7070; J7512